=== PATIENT | male | born 1985 | race Caucasian/White ===

== ENCOUNTER 2020-02-08 07:26 | Outpatient (REF) | payer OTHER, SELFPAY | END 2020-02-08 07:27 | disposition home or self-care (01) | LOC: HO.LAB 07:26 | PROVIDERS: PCP Nurse Practitioner Family; Referring Provider Internal Medicine; Visit Provider Nurse Practitioner Gerontology | DX: Z20.828 Contact with and (suspected) exposure to other viral communicable diseases (principal); E10.22 Type 1 diabetes mellitus with diabetic chronic kidney disease; I12.9 Hypertensive chronic kidney disease with stage 1 through stage 4 chronic kidney disease, or unspecified chronic kidney disease; N18.4 Chronic kidney disease, stage 4 (severe); E10.65 Type 1 diabetes mellitus with hyperglycemia; E78.5 Hyperlipidemia, unspecified | CPT/HCPCS: 99212; C9803; U0003 ==

== ENCOUNTER → 2020-03-14 10:39 | Outpatient (BNVA) | payer OTHER, SELFPAY | PROVIDERS: PCP Physician Assistant; Visit Provider Nurse Practitioner Gerontology ==

== ENCOUNTER 2020-04-04 07:43 | Outpatient (REF) | payer OTHER, SELFPAY ==
[2020-04-04 09:06] LABS: Glucose Urine UA 500 MG/DL (NEG); Leukocyte Esterase Urine NEG (NEG); Nitrite Urine NEG (NEG); Specific Gravity - Urine 1.025 (1.005-1.025); Urine Blood 1+ (NEG); Urine Ketones NEG (NEG); Urine Protein 2+ MG/DL (NEG-TRACE)
[2020-04-04 09:09] LABS: Appearance Urine HAZY; Color Urine YELLOW
[2020-04-04 09:28] LABS: Anion Gap 14 (12-20); Blood Urea Nitrogen 43 mg/dL (9-16); Calcium 8.4 mg/dL (8.4-10.2); Carbon Dioxide 24 mmol/L (22-29); Chloride 106 mmol/L (96-108); Estimated Glomerular Filt Rate 26; Potassium 4.4 mmol/L (3.3-5.1); Sodium 140 mmol/L (135-145); Uric Acid 7.2 mg/dL (3.4-7.0)
[2020-04-04 09:34] LABS: Mucus Urine TRACE /LPF; Squamous Epithelial Cell Urine TRACE /LPF; WBC Urine 0 /HPF (0-4)
[2020-04-04 09:45] LABS: Estimated Average Glucose 169 mg/dL; Hemoglobin A1c % 7.5 %
[2020-04-04 10:12] LABS: Creatinine Urine 73.66 mg/dL
[2020-04-04 11:03] LABS: Renal w Reflex Lab Use Only Order verified
[2020-04-04 11:14] LABS: Phosphorus 3.3 mg/dL (2.7-4.5)
== END 2020-04-04 07:44 | disposition home or self-care (01) ==
LOC: HO.LAB 07:43
PROVIDERS: Absent Provider Nurse Practitioner Gerontology; PCP Nurse Practitioner Family; Visit Provider Internal Medicine Nephrology
DX: E10.22 Type 1 diabetes mellitus with diabetic chronic kidney disease (principal); I12.9 Hypertensive chronic kidney disease with stage 1 through stage 4 chronic kidney disease, or unspecified chronic kidney disease; N18.4 Chronic kidney disease, stage 4 (severe); E66.9 Obesity, unspecified; Z96.41 Presence of insulin pump (external) (internal); Z79.4 Long term (current) use of insulin; Z71.3 Dietary counseling and surveillance
CPT/HCPCS: 36415; 80051; 81001; 81003; 82043; 82310; 82565; 83036; 84100; 84520; 84550

== ENCOUNTER → 2020-04-21 10:21 | Outpatient (BNVA) | payer OTHER, SELFPAY | PROVIDERS: PCP Nurse Practitioner Family; Visit Provider Nurse Practitioner Gerontology ==

== ENCOUNTER → 2020-04-25 08:50 | Outpatient (BNVA) | payer OTHER, SELFPAY | PROVIDERS: PCP Nurse Practitioner Family; Visit Provider Nurse Practitioner Gerontology | DX: E10.65 Type 1 diabetes mellitus with hyperglycemia (principal); E10.22 Type 1 diabetes mellitus with diabetic chronic kidney disease; I12.9 Hypertensive chronic kidney disease with stage 1 through stage 4 chronic kidney disease, or unspecified chronic kidney disease; N18.4 Chronic kidney disease, stage 4 (severe); E78.5 Hyperlipidemia, unspecified | CPT/HCPCS: 82947; 99212 ==

== ENCOUNTER → 2020-05-09 13:20 | Outpatient (BNVA) | payer OTHER, SELFPAY | PROVIDERS: PCP Nurse Practitioner Family; Visit Provider Dietitian, Registered ==

== ENCOUNTER → 2020-07-25 07:54 | Outpatient (BNVA) | payer OTHER, SELFPAY | PROVIDERS: PCP Nurse Practitioner Family; Visit Provider Nurse Practitioner Gerontology | DX: E10.22 Type 1 diabetes mellitus with diabetic chronic kidney disease (principal); I12.9 Hypertensive chronic kidney disease with stage 1 through stage 4 chronic kidney disease, or unspecified chronic kidney disease; N18.4 Chronic kidney disease, stage 4 (severe); E10.65 Type 1 diabetes mellitus with hyperglycemia; E78.5 Hyperlipidemia, unspecified | CPT/HCPCS: 82947; 99212 ==

== ENCOUNTER → 2020-11-21 14:17 | Outpatient (BNVA) | payer OTHER, SELFPAY | PROVIDERS: PCP Nurse Practitioner Family; Visit Provider Nurse Practitioner Gerontology | DX: E10.65 Type 1 diabetes mellitus with hyperglycemia (principal); E10.22 Type 1 diabetes mellitus with diabetic chronic kidney disease; I12.9 Hypertensive chronic kidney disease with stage 1 through stage 4 chronic kidney disease, or unspecified chronic kidney disease; N18.4 Chronic kidney disease, stage 4 (severe); E78.5 Hyperlipidemia, unspecified | CPT/HCPCS: 82947; 83036; 99212 ==

== ENCOUNTER → 2021-01-22 07:52 | Outpatient (BNVA) | payer OTHER, SELFPAY | PROVIDERS: PCP Physician Assistant; Visit Provider Registered Nurse Diabetes Educator | DX: E10.22 Type 1 diabetes mellitus with diabetic chronic kidney disease (principal); N18.4 Chronic kidney disease, stage 4 (severe) | CPT/HCPCS: 99211 ==

== ENCOUNTER 2021-02-19 07:44 | Outpatient (REF) | payer OTHER, SELFPAY ==
[2021-02-19 11:52] LABS: Microalbum/Creatinine Ratio Ur 1051.7 ug/mg cr
[2021-02-19 11:57] LABS: Alanine Aminotransferase 31 U/L (0-40); Albumin Level 4.3 g/dL (3.5-5.0); Alkaline Phosphatase 107 U/L (39-117); Anion Gap 12 (12-20); Aspartate Amino Transferase 27 U/L (5-37); Bilirubin Total 0.4 mg/dL (0.0-1.0); Blood Urea Nitrogen 51 mg/dL (9-16); Calcium 9.1 mg/dL (8.4-10.2); Carbon Dioxide 23 mmol/L (22-29); Chloride 109 mmol/L (96-108); Cholesterol 163 mg/dL; Estimated Glomerular Filt Rate 20; Glucose Fasting 143 mg/dL (60-99); HDL Cholesterol 47 mg/dL; LDL Cholesterol Calculated 94 mg/dl; Potassium 6.1 mmol/L (3.3-5.1); Sodium 138 mmol/L (135-145); Total Protein 7.6 g/dL (6.5-8.0); Triglycerides 112 mg/dL
[2021-02-19 12:00] LABS: TSH reflex Free T4 2.45 uIU/mL (0.32-4.0)
== END 2021-02-19 07:45 | disposition home or self-care (01) ==
LOC: HO.LAB 07:44
PROVIDERS: Absent Provider Nurse Practitioner Gerontology; PCP Physician Assistant; Referring Provider Physician Assistant; Visit Provider Registered Nurse Diabetes Educator
DX: E10.22 Type 1 diabetes mellitus with diabetic chronic kidney disease (principal); N18.4 Chronic kidney disease, stage 4 (severe); E78.5 Hyperlipidemia, unspecified; Z79.4 Long term (current) use of insulin
CPT/HCPCS: 36415; 80053; 80061; 82043; 84443; 99211

== ENCOUNTER 2021-02-26 08:38 | Outpatient (REF) | payer OTHER, SELFPAY ==
[2021-02-26 10:55] LABS: Anion Gap 10 (12-20); Blood Urea Nitrogen 36 mg/dL (9-16); Calcium 8.8 mg/dL (8.4-10.2); Carbon Dioxide 26 mmol/L (22-29); Chloride 107 mmol/L (96-108); Estimated Glomerular Filt Rate 23; Glucose Fasting 252 mg/dL (60-99); Potassium 4.9 mmol/L (3.3-5.1); Sodium 138 mmol/L (135-145)
[2021-02-26 10:56] LABS: Troponin-I High Sensitivity < 3.5 ng/L (<3.5-35.0)
== END 2021-02-26 08:39 | disposition home or self-care (01) ==
LOC: HO.LAB 08:38
PROVIDERS: PCP Physician Assistant; Visit Provider Registered Nurse Diabetes Educator
DX: E10.65 Type 1 diabetes mellitus with hyperglycemia (principal); E10.22 Type 1 diabetes mellitus with diabetic chronic kidney disease; I12.9 Hypertensive chronic kidney disease with stage 1 through stage 4 chronic kidney disease, or unspecified chronic kidney disease; N18.4 Chronic kidney disease, stage 4 (severe); E87.5 Hyperkalemia; Z96.41 Presence of insulin pump (external) (internal); Z88.6 Allergy status to analgesic agent; Z88.8 Allergy status to other drugs, medicaments and biological substances; Z79.4 Long term (current) use of insulin
CPT/HCPCS: 36415; 80048; 84484; 99211

== ENCOUNTER → 2021-04-06 13:31 | Outpatient (BNVA) | payer OTHER, SELFPAY | PROVIDERS: PCP Physician Assistant; Visit Provider Nurse Practitioner Gerontology | DX: E10.21 Type 1 diabetes mellitus with diabetic nephropathy (principal); E10.22 Type 1 diabetes mellitus with diabetic chronic kidney disease; I12.9 Hypertensive chronic kidney disease with stage 1 through stage 4 chronic kidney disease, or unspecified chronic kidney disease; N18.4 Chronic kidney disease, stage 4 (severe); E78.5 Hyperlipidemia, unspecified; E04.9 Nontoxic goiter, unspecified; Z79.4 Long term (current) use of insulin; Z96.41 Presence of insulin pump (external) (internal) | CPT/HCPCS: 82947; 99212 ==

== ENCOUNTER 2021-10-16 14:40 | Outpatient (REF) | payer OTHER, SELFPAY ==
[2021-10-16 15:40] LABS: Anion Gap 17 (12-20); Blood Urea Nitrogen 45 mg/dL (9-16); Calcium 8.2 mg/dL (8.4-10.2); Carbon Dioxide 19 mmol/L (22-29); Chloride 107 mmol/L (96-108); Cholesterol 148 mg/dL; Estimated Glomerular Filt Rate 17; Glucose Random 173 mg/dL (60-115); HDL Cholesterol 43 mg/dL; LDL Cholesterol Calculated 77 mg/dl; Potassium 5.5 mmol/L (3.3-5.1); Sodium 137 mmol/L (135-145); Triglycerides 141 mg/dL
== END 2021-10-16 14:41 | disposition home or self-care (01) ==
LOC: HO.LAB 14:40
PROVIDERS: PCP Physician Assistant; Visit Provider Physician Assistant
DX: E87.5 Hyperkalemia (principal); E10.21 Type 1 diabetes mellitus with diabetic nephropathy
CPT/HCPCS: 36415; 80048; 80061

== ENCOUNTER 2021-12-14 13:20 | Outpatient (REF) | payer OTHER, SELFPAY ==
[2021-12-14 14:36] LABS: Anion Gap 16 (12-20); Blood Urea Nitrogen 52 mg/dL (9-16); Carbon Dioxide 20 mmol/L (22-29); Chloride 108 mmol/L (96-108); Estimated Glomerular Filt Rate 17; Glucose Random 108 mg/dL (60-115); Potassium 5.1 mmol/L (3.3-5.1); Sodium 139 mmol/L (135-145)
[2021-12-14 15:17] LABS: Creatinine Urine 107.92 mg/dL
[2021-12-14 15:31] LABS: Microalbum/Creatinine Ratio Ur 614.3 ug/mg cr
== END 2021-12-14 13:21 | disposition home or self-care (01) ==
LOC: HO.LAB 13:20
PROVIDERS: Absent Provider Internal Medicine Endocrinology, Diabetes & Metabolism; PCP Physician Assistant; Visit Provider Physician Assistant
DX: N18.4 Chronic kidney disease, stage 4 (severe) (principal); E10.22 Type 1 diabetes mellitus with diabetic chronic kidney disease; E87.5 Hyperkalemia
CPT/HCPCS: 36415; 80048; 82043

== ENCOUNTER → 2022-02-07 08:22 | Outpatient (BNVA) | payer OTHER, SELFPAY | PROVIDERS: PCP Physician Assistant; Visit Provider Internal Medicine Endocrinology, Diabetes & Metabolism | DX: E10.65 Type 1 diabetes mellitus with hyperglycemia (principal); E10.22 Type 1 diabetes mellitus with diabetic chronic kidney disease; E10.21 Type 1 diabetes mellitus with diabetic nephropathy; I12.9 Hypertensive chronic kidney disease with stage 1 through stage 4 chronic kidney disease, or unspecified chronic kidney disease; N18.4 Chronic kidney disease, stage 4 (severe); R80.9 Proteinuria, unspecified; E87.5 Hyperkalemia; E78.5 Hyperlipidemia, unspecified; Z79.4 Long term (current) use of insulin; Z96.41 Presence of insulin pump (external) (internal) | CPT/HCPCS: 82947; 83036; 99212 ==

== ENCOUNTER → 2022-04-01 12:56 | Outpatient (BNVA) | payer OTHER, SELFPAY | PROVIDERS: PCP Physician Assistant; Visit Provider Dietitian, Registered | DX: E10.22 Type 1 diabetes mellitus with diabetic chronic kidney disease (principal); N18.4 Chronic kidney disease, stage 4 (severe); Z71.3 Dietary counseling and surveillance | CPT/HCPCS: 97803 ==

== ENCOUNTER 2022-12-04 13:48 | Outpatient (AMB) | payer OTHER, SELFPAY ==
--- NOTE | 2022-12-04 13:49 | MHC.OFFVIS ---
Intake Vital Signs 12/04/22 13:50 Height 5 ft 5 in Weight 200 lb 13.458 oz BMI 33.4 BP 154/86 H Blood Pressure Location Lt brachial Position Sitting Pulse 79 Pulse Source Pulse Oximeter Intake Visit Reasons: DM Intake Note: Patient present today to follow up on Type 1 Diabetes Mellitus. Patient receives DME supplies through: [facility] Last Diabetic Eye exam: 2021 Last Podiatry Visit: None Random Glucose: 197 mg/dl HgA1C: 7.3% It Help Desk Analyst Required: No Accompanied by: Self / Same As Patient Allergies aspirin [ASA] Allergy (Unknown, Verified 12/04/22 14:03) ANAPHYLAXIS benazepril Allergy (Unknown, Verified 12/04/22 14:03) hyperkalemia HPI HPI Comments History of Present Illness Details Patient is 36 yo male with DM type 1 diagnosed at the age of 13 who presents for continued management of diabetes. . Past medical history: DM1, HTN, HLD Micro and macrovascular complications: + nephropathy, + retinopathy Symptoms reported: no numbness, tingling, cramping in lower extremities Hypoglycemia: Exercise: at work is active Eye exam: , background retinopathy last exam CGM: range 46-400, average 181 over the past 2 weeks. CGM active 13.6 days. 14% range with 85% hyperglycemia and 2% hypoglycemia. pattern shows post -lunch and post- dinner hyperglycemia with overnight lows tandem T slim control IQ Pump details: Total daily dose 69.08 Basal is 46%, food bolus 44%, correction bolus 4%, control IQ 92% of the time. Cartridge and tubing change every 35days. Rare hypoglycemia Evangelical profile: basal rate 12am 1.3 u/hr, 3am 0.9 u/hr, 7am 0.9 u/hr, 4pm 1.20 u/hr, ICR 1:7, ISF 12am 1:40, 7am 1:48, 4pm 1:35, Work profile: basal rate 12am 0.9 u/hr, 3am 0.9 u/hr, 7am 0.89 u/hr, 4pm 1.20 u/hr, ICR 1:7, ISF 12am 1:40, 7am 1:40, 2pm 1:44, 4pm 1:35, insulin action time is 4 hrs, BG target is 120mg/dl. eye exam over 1 yr ago ou-background diabetic retinopathy needs to make appt Laboratory Tests 02/19/21 02/19/21 02/19/21 09:39 10:23 10:30 Creatinine Estimated GFR Hgb A1c (Clinic) 7.0 H Triglycerides 112 Cholesterol 163 LDL Cholesterol, C alc 94 HDL Cholesterol 47 TSH 2.45 Microalb/Creat Rat io 1051.7 02/26/21 10:10 Creatinine 3.05 H Estimated GFR 23 Hgb A1c (Clinic) Triglycerides Cholesterol LDL Cholesterol, C alc HDL Cholesterol TSH Microalb/Creat Rat io PFSH Medical History Chronic kidney disease, stage 4 (severe) Diabetes mellitus type 1, uncontrolled Essential hypertension Hyperlipidemia LDL goal <100 Proteinuria Tinea pedis 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 Absence of acromegalic features. Neck exam reveals nl size thyroid about 15 gms. No thyroid nodules palpable. No carotid bruits present. Lungs CTA. Heart S1 S2, Reg R/R. No M/R/ G. Skin exam reveals absence of vitiligo or acanthosis nigricans. Abdominal exam reveals Soft NT/ND with NA BS. No organomegaly present. Extrem Other: Visual exam of foot performed. No ulcerations or open lesions. No onchomycosis, no callouses.Pulses 2 + distally. Sensation intact to monofilament exam. 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 Plan is to tighten the insulin : Carbohydrate to 1:6 before lunch and dinner. Will lower the basal rate at 00:00 to 1.1 units per hour. Patient was given follow-up appointments with front office clerk and cage loader to review carbohydrate counting. In light of the CKD stage 4 I think the hemoglobin A1c is not reflective glucose control Orders: Orders AMB Hemoglobin A1c Today E10.21 - Type 1 diabetes mellitus with diabetic nephropathy Coding Level of Care Code Est Pt Level 4 (97097) Diagnoses Type 1 diabetes mellitus with stage 4 chronic kidney disease E10.22; N18.4 Chronic kidney disease stage: stage 4 (severe)
[2022-12-04 13:50] VITALS: BP 154/86; PULSE 79; BMI 33.4
== END 2022-12-04 14:26 | disposition home or self-care (01) ==
PROVIDERS: PCP Physician Assistant; Visit Provider Internal Medicine Endocrinology, Diabetes & Metabolism
DX: E10.22 Type 1 diabetes mellitus with diabetic chronic kidney disease (principal); N18.4 Chronic kidney disease, stage 4 (severe); E10.21 Type 1 diabetes mellitus with diabetic nephropathy
CPT/HCPCS: 99214

== ENCOUNTER → 2022-12-04 13:48 | Outpatient (BNVA) | payer OTHER, SELFPAY | PROVIDERS: PCP Physician Assistant; Visit Provider Internal Medicine Endocrinology, Diabetes & Metabolism | DX: E10.22 Type 1 diabetes mellitus with diabetic chronic kidney disease (principal); N18.4 Chronic kidney disease, stage 4 (severe) | CPT/HCPCS: 82947; 83036; 99212 ==

== ENCOUNTER 2023-03-07 09:54 | Outpatient (AMB) | payer SELFPAY ==
[2023-03-07 10:25] VITALS: BP 156/90; PULSE 62; O2SAT 99; BMI 34.3
--- NOTE | 2023-03-07 10:25 | HO.NEPHOV_ITS ---
HPI HPI Comments History of Present Illness Details I had the privilege of seeing Holiness in follow-up of his chronic kidney disease stage 4 due to diabetic nephropathy. His blood sugar controls are fair. He has type 1 diabetes but denies retinopathy or neuropathy. He does not have any edema. His blood pressure has been at goal. He denies uremic symptoms. He does not have any chest pain, shortness of breath, proximal nocturnal dyspnea, orthopnea, nausea, vomiting, diarrhea. He claims to be compliant with his medications. He remains employed and is active. 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 His last serum creatinine in [facility] was 3.2. 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 Cognitive needs: No Hearing needs: No Vision needs: No Vital Signs 03/07/23 10:25 Height 5 ft 5 in Weight 206 lb 2 oz BMI 34.3 BP 156/90 H Blood Pressure Location Rt brachial Position Sitting Pulse 62 Pulse Source Pulse Oximeter Pulse Oximetry (%) 99 Oxygen Delivery Method Room Air Physical Exam Vital Signs: Last Vital Signs Pulse 62 03/07/23 10:25 BP 156/90 H 03/07/23 10:25 Pulse Ox 99 03/07/23 10:25 Oxygen Delivery Method Room Air 03/07/23 10:25 BMI result Body Mass Index 34.3 Const General: comfortable and no acute distress Orientation/consciousness: patient oriented x3 HEENT Head: Yes normocephalic Mouth: Normal oral and palatal mucosa present Eyes EOM: EOMs intact bilaterally Neck Neck: Yes supple Resp Auscultation: clear to auscultation bilaterally Cardio Jugular venous distension: no JVD Rate: regular rate GI Palpation (GI): Soft to palpation Auscultation: normal bowel sounds General: Yes no CVA tenderness Back/Spine/Pelvis Back: no CVA tenderness Skin General skin exam: no rashes or lesions noted Neuro General: patient oriented x3 and moves all extremities Extrem General: Yes no pedal edema Assessment & Plan Assessment & Plan (1) Type 1 diabetes mellitus with nephropathy: Code(s): E10.21 - Type 1 diabetes mellitus with diabetic nephropathy (2) Chronic kidney disease, stage 4 (severe): Code(s): N18.4 - Chronic kidney disease, stage 4 (severe) Plan Holiness has advanced chronic kidney disease. His renal functions had been stable. His blood pressure is at goal. He is tolerating low-dose of PEPE- inhibitor. He has no uremic symptoms. He has not had any blood work done recently. He needs to follow-up with his letter stamping machine operator closely. If his GFR continues to decline, I plan to refer him for a kidney and pancreas transplant. He should avoid nonsteroidal anti-inflammatories and maintain good hydration. I did not make any medication changes today but rather discussed about his CKD and its management strategies. Follow-up blood work ordered and follow-up appointment given. Answered all questions. Orders: Orders Blood Urea Nitrogen 03/07/23 E10.21 - Type 1 diabetes mellitus with diabetic nephropathy, N18.4 - Chronic kidney disease, stage 4 (severe) Electrolytes 03/07/23 E10.21 - Type 1 diabetes mellitus with diabetic nephropathy, N18.4 - Chronic kidney disease, stage 4 (severe) Phosphorus 03/07/23 E10.21 - Type 1 diabetes mellitus with diabetic nephropathy, N18.4 - Chronic kidney disease, stage 4 (severe) Vitamin D 25-OH Total 03/07/23 E10.21 - Type 1 diabetes mellitus with diabetic nephropathy, N18.4 - Chronic kidney disease, stage 4 (severe) Blood Urea Nitrogen 3 Months E10.21 - Type 1 diabetes mellitus with diabetic nephropathy Creatinine 03/07/23 E10.21 - Type 1 diabetes mellitus with diabetic nephropathy, N18.4 - Chronic kidney disease, stage 4 (severe) Hemoglobin A1c 03/07/23 E10.21 - Type 1 diabetes mellitus with diabetic nephropathy, N18.4 - Chronic kidney disease, stage 4 (severe) Complete Blood Count Auto Diff 03/07/23 E10.21 - Type 1 diabetes mellitus with diabetic nephropathy, N18.4 - Chronic kidney disease, stage 4 (severe) Parathyroid Hormone Intact 03/07/23 E10.21 - Type 1 diabetes mellitus with diabetic nephropathy, N18.4 - Chronic kidney disease, stage 4 (severe) Protein Creatinine Ratio, Ur 03/07/23 E10. - Type 1 diabetes mellitus with diabetic nephropathy, N18.4 - Chronic kidney disease, stage 4 (severe) Creatinine 3 Months E10. - Type 1 diabetes mellitus with diabetic nephropathy Electrolytes 3 Months E10. - Type 1 diabetes mellitus with diabetic nephropathy Coding Level of Care Code Est Pt Level 3 (86619) Diagnoses Type 1 diabetes mellitus with nephropathy E10. Chronic kidney disease, stage 4 (severe) N18.4 Results Reviewed Nephrology Results: No Data to Display
== END 2023-03-07 10:51 | disposition home or self-care (01) ==
PROVIDERS: Visit Provider Internal Medicine Nephrology
DX: E10.21 Type 1 diabetes mellitus with diabetic nephropathy (principal); N18.4 Chronic kidney disease, stage 4 (severe)
CPT/HCPCS: 99213

== ENCOUNTER → 2023-03-07 09:54 | Outpatient (BNVA) | payer OTHER, SELFPAY | PROVIDERS: Visit Provider Internal Medicine Nephrology | DX: E10.22 Type 1 diabetes mellitus with diabetic chronic kidney disease (principal); N18.4 Chronic kidney disease, stage 4 (severe); E10.21 Type 1 diabetes mellitus with diabetic nephropathy | CPT/HCPCS: 99212 ==

== ENCOUNTER 2023-05-12 07:04 | Outpatient (AMB) | payer OTHER, SELFPAY ==
--- NOTE | 2023-05-12 07:42 | MHC.AMDMED ---
Intake Intake Visit Reasons: DM Inspector Of Dredging Required: No Accompanied by: Self / Same As Patient Allergies aspirin [ASA] Allergy (Unknown, Verified 03/07/23 10:29) ANAPHYLAXIS benazepril Allergy (Unknown, Verified 03/07/23 10:29) hyperkalemia HPI Comprehensive Diabetes Asmnt Most Recent Diabetes Results: Hemoglobin A1c 10.7 % 04/14/18 Microalb/Creat Ratio 614.3 ug/mg cr 12/14/21 Cholesterol 148 mg/dL 10/16/21 HDL Cholesterol 43 mg/dL 10/16/21 Triglycerides 141 mg/dL 10/16/21 Creatinine 4.10 mg/dL (0.5-1.4) H* 12/14/21 Blood Urea Nitrogen 52 mg/dL (9-16) H 12/14/21 Sodium 139 mmol/L (135-145) 12/14/21 Potassium 5.1 mmol/L (3.3-5.1) 12/14/21 Chloride 108 mmol/L (96-108) 12/14/21 Carbon Dioxide 20 mmol/L (22-29) L 12/14/21 Calcium 9.0 mg/dL (8.4-10.2) 12/14/21 AST 27 U/L (5-37) 02/19/21 ALT 31 U/L (0-40) 02/19/21 Total Protein 7.6 g/dL (6.5-8.0) 02/19/21 Albumin 4.3 g/dL (3.5-5.0) 02/19/21 [facility] Medical History Chronic kidney disease, stage 4 (severe) Diabetes mellitus type 1, uncontrolled Essential hypertension Hyperlipidemia LDL goal <100 Proteinuria Tinea pedis 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 High Alert: 300 mg/dl ??? Low Alert: 70 mg/dl Patient above target 43% Patient at target 57% Patient below target 0% Average glucose 177 mg/dL for the past 14 days Patient's average glucose is above target, this could be due to overnight glucose running above target on some days. Reviewed with patient the importance bolusing for carbs 15 minutes before meals, recommended we adjust overnight basal to compensate for high glucose overnight. Also recommended to patient he use activity level at work if he feels his glucose levels are dropping to low Reviewed with patient importance of changing insulin delivery set/Pod every 72 hours, with site rotation. Patient given the opportunity to ask questions about pump function See changes to pump settings below: ?Basal rate(s) (units/hour) : 12 AM? to 3 AM? 1.1 units / hr 3 AM? to 7 AM? 0.9 units / hr New 3 AM? to 7 AM? 1.1 units / hr 7 AM? to 4 PM? 0.9 units / hr 4 PM to 12 AM? 1.2 units / hr Bolus setting Insulin Carbohydrate Ratio (s) 12 AM? to 12 AM? 1:8 Correction Factor / Sensitivity Factor 12 AM? to 7 AM? 1:40 7 AM? to 4 PM? 1:48 4 PM to 12 AM 1:35 Active Insulin Time: Control IQ 5 hours Target(s): 12 AM? to 12 AM? 120 mg/dL New Sleep Schedule turned on for weekdays and weekends Coding Level of Care Code Est Pt Level 1 (83447) Diagnoses Type 1 diabetes mellitus with nephropathy E10.21
== END 2023-05-12 07:45 | disposition home or self-care (01) ==
PROVIDERS: Visit Provider Registered Nurse Diabetes Educator
DX: E10.21 Type 1 diabetes mellitus with diabetic nephropathy (principal)

== ENCOUNTER → 2023-05-12 07:04 | Outpatient (BNVA) | payer OTHER, SELFPAY | PROVIDERS: Visit Provider Registered Nurse Diabetes Educator | DX: E10.21 Type 1 diabetes mellitus with diabetic nephropathy (principal) | CPT/HCPCS: 99211 ==

== ENCOUNTER → 2023-06-06 16:06 | Outpatient (BNVA) | payer OTHER, SELFPAY | PROVIDERS: Visit Provider Internal Medicine Nephrology | DX: E10.22 Type 1 diabetes mellitus with diabetic chronic kidney disease (principal); I12.9 Hypertensive chronic kidney disease with stage 1 through stage 4 chronic kidney disease, or unspecified chronic kidney disease; N18.4 Chronic kidney disease, stage 4 (severe); E10.21 Type 1 diabetes mellitus with diabetic nephropathy; E87.5 Hyperkalemia | CPT/HCPCS: 99212 ==

== ENCOUNTER 2023-06-16 15:45 | Outpatient (AMB) | payer OTHER, SELFPAY ==
--- NOTE | 2023-06-16 16:30 | MHC.AMDMED ---
Intake Intake Visit Reasons: DM-confirmed Ammonium Nitrate Neutralizer Required: No Accompanied by: Self / Same As Patient Allergies aspirin [ASA] Allergy (Unknown, Verified 06/06/23 16:14) ANAPHYLAXIS benazepril Allergy (Unknown, Verified 06/06/23 16:14) hyperkalemia HPI Comprehensive Diabetes Asmnt Most Recent Diabetes Results: Hemoglobin A1c 10.7 % 04/14/18 Microalb/Creat Ratio 614.3 ug/mg cr 12/14/21 Cholesterol 148 mg/dL 10/16/21 HDL Cholesterol 43 mg/dL 10/16/21 Triglycerides 141 mg/dL 10/16/21 Creatinine 4.10 mg/dL (0.5-1.4) H* 12/14/21 Blood Urea Nitrogen 52 mg/dL (9-16) H 12/14/21 Sodium 139 mmol/L (135-145) 12/14/21 Potassium 5.1 mmol/L (3.3-5.1) 12/14/21 Chloride 108 mmol/L (96-108) 12/14/21 Carbon Dioxide 20 mmol/L (22-29) L 12/14/21 Calcium 9.0 mg/dL (8.4-10.2) 12/14/21 AST 27 U/L (5-37) 02/19/21 ALT 31 U/L (0-40) 02/19/21 Total Protein 7.6 g/dL (6.5-8.0) 02/19/21 Albumin 4.3 g/dL (3.5-5.0) 02/19/21 [facility] Medical History Chronic kidney disease, stage 4 (severe) Diabetes mellitus type 1, uncontrolled Essential hypertension Hyperlipidemia LDL goal <100 Proteinuria Tinea pedis 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 High Alert: 300 mg/dl ??? Low Alert: 70 mg/dl Patient above target 49% Patient at target 51% Patient below target 0% Average glucose 196 mg/dL for the past 14 days Patient has been running low on insulin pump supplies so he has been extending the use of his insulin delivery sets, this could be contributing to his hyperglycemia. In addition we discussed off pump diabetes backup plan Bolus calc downloaded and setup on Pt's phone No changes to patient's insulin pump settings at today's visit ?Basal rate(s) (units/hour) : 12 AM? to 3 AM? 1.1 units / hr 3 AM? to 7 AM? 1.1 units / hr 7 AM? to 4 PM? 0.9 units / hr 4 PM to 12 AM? 1.2 units / hr Bolus setting Insulin Carbohydrate Ratio (s) 12 AM? to 12 AM? 1:8 Correction Factor / Sensitivity Factor 12 AM? to 7 AM? 1:40 7 AM? to 4 PM? 1:48 4 PM to 12 AM 1:35 Active Insulin Time: Control IQ 5 hours Target(s): 12 AM? to 12 AM? 120 mg/dL Coding Level of Care Code Est Pt Level 1 (78812) Diagnoses Type 1 diabetes mellitus with nephropathy E10.21
== END 2023-06-16 16:39 | disposition home or self-care (01) ==
PROVIDERS: Visit Provider Registered Nurse Diabetes Educator
DX: E10.21 Type 1 diabetes mellitus with diabetic nephropathy (principal)

== ENCOUNTER → 2023-06-16 15:53 | Outpatient (BNVA) | payer OTHER, SELFPAY | PROVIDERS: Visit Provider Registered Nurse Diabetes Educator | DX: E10.21 Type 1 diabetes mellitus with diabetic nephropathy (principal); Z79.4 Long term (current) use of insulin | CPT/HCPCS: 99211 ==

== ENCOUNTER 2023-06-26 14:29 | Outpatient (AMB) | payer OTHER, SELFPAY ==
[2023-06-26 14:42] VITALS: BP 134/84; PULSE 62; O2SAT 98; BMI 33.7
--- NOTE | 2023-06-26 14:42 | MHC.PC.OV ---
Vital Signs 06/26/23 14:42 Height 5 ft 5 in Weight 202 lb 8 oz BMI 33.7 BP 134/84 Blood Pressure Location Lt brachial Position Sitting Pulse 62 Pulse Source Pulse Oximeter Pulse Oximetry (%) 98 Oxygen Delivery Method Room Air Intake Visit Reasons: annual exam Allergies aspirin [ASA] Allergy (Unknown, Verified 06/26/23 15:17) ANAPHYLAXIS benazepril Allergy (Unknown, Verified 06/26/23 15:17) hyperkalemia Medication List - Last Reconciled 06/26/23 by Ashok Hurtado PA-C infusion set for insulin pump As directed insulin aspart U-100 (Novolog U-100 Insulin aspart) Use up to 125 units via insulin pump subcutaneously daily; insulin glargine (Lantus Solostar U-100 Insulin) 25 units (0.25 mL) subcut DAILY [insulin pump supplies As directed] insulin syringe-needle U-100 (BD Veo Insulin Syringe Ultra-Fine) As directed lisinopril 2.5 mg PO DAILY 90 days loratadine 10 mg PO DAILY metoprolol succinate ER 100 mg PO DAILY nifedipine ER 60 mg PO DAILY pen needle, diabetic (BD Ultra-Fine Kamala Pen Needle) As directed one daily rosuvastatin 20 mg PO DAILY 90 days sodium polystyrene sulf-sorbtl 15-20 gram/60 mL 60 mL PO .three times weekly urine glucose-ketones test (Keto-Diastix strips) As directed Tobacco use date assessed: 06/21/21 [facility] [employer] [facility] annual exam HPI Details Patient is a 38-year-old male here today for a routine annual physical. Patient has a past medical history significant for type 1 diabetes, CKD stage for, hypertension, hyperlipidemia. Type 1 diabetes: Patient is followed by endocrinology and continues on continues glucose monitoring and insulin pump.? Today's A1c is 6.7..? He does report blood sugars have been fairly stable. CKD stage 4:? Patient is followed by Nephrology, blood pressure today in office acceptable. 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 Vaccines : Up-to-date with pneumonia, COVID, tetanus. 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 1. Little interest or pleasure in doing things: not at all 2. Feeling down, depressed, or hopeless: not at all 3. Trouble falling or staying asleep, or sleeping too much: not at all 4. Feeling tired or having little energy: not at all 5. Poor appetite or overeating: not at all 6. Feeling bad about yourself - or that you are a failure or have let yourself or your family down: not at all 7. Trouble concentrating on things, such as reading the newspaper or watching television: not at all 8. Moving or speaking so slowly that other people could have noticed. Or the opposite - being so fidgety or restless that you have been moving around a lot more than usual: not at all 9. Thoughts that you would be better off or of hurting yourself in some way: not at all Total score: 0 Depression Screening Interpretation: Negative Depression Screening Done: Yes 03921 - PHQ-9 Billing: Yes Source: Developed by Drs. Nikolai Martinez, Alicia Aaron, Shane Potter and colleagues, with an educational han from [employer]. Thrive Questionnaire Date Thrive assessed: 06/21/21 CAMILO-7 AMB Questionnaire CAMILO-7 Date CAMILO - 7 assessed: 06/21/21 Feeling nervous, anxious, or on edge: 0 = Not at all Not being able to stop or control worryin = Not at all Worrying too much about different things: 0 = Not at all Trouble relaxin = Not at all Being so restless that it is hard to sit still: 0 = Not at all Becoming easily annoyed or irritable: 0 = Not at all Feeling afraid as if something awful might happen: 0 = Not at all Total CAMILO-7 score (0-4 normal; 5-9 mild; 10-14 moderate; 15-21 severe): 0 Source: Developed by Drs. Nikolai Martinez, Alicia Aaron, Shane Potter and colleagues, with an educational han from [employer]. CAMILO-7 Assessment Billing CAMILO-7 Assessment Tool: CAMILO-7 Assessment 78463 Review of Systems Const Denies body aches, Denies chills, Denies excessive sweating, Denies fatigue, Denies fever(s) and Denies headache(s) Eyes Denies blurry vision ENT Denies dysphagia, Denies vertigo, Denies dizziness, Denies headache(s), Denies hearing loss and Denies tinnitus Card Denies chest pain, Denies chest pain with activity, Denies syncope, Denies irregular heart rhythm and Denies dyspnea Resp Denies chest congestion, Denies cough, Denies hemoptysis, Denies dyspnea and Denies wheezing GI Denies abdominal pain, Denies melena, Denies hematochezia, Denies coffee ground emesis, Denies dysphagia, Denies diarrhea, Denies nausea and Denies vomiting Denies difficulty urinating, Denies dysuria, Denies urinary frequency, Denies urinary hesitancy and Denies urinary urgency Musc Denies arthralgias, Denies limited range of motion, Denies muscle cramps and Denies muscle weakness Skin/Breast Denies rash and Denies skin ulcer Neuro Denies Abnormal speech present, Denies confusion, Denies vertigo, Denies dizziness, Denies syncope, Denies headache(s), Denies memory loss and Denies seizure-like activity Psych Denies anxiety, Denies confusion, Denies depression, Denies memory loss, Denies panic attacks and Denies paranoia Endo Denies excessive sweating, Denies fatigue, Denies flushing, Denies polydipsia and Denies polyuria Aller/Immun Denies wheezing Physical exam (Primary Care) Vital Signs: Last Vital Signs Pulse 62 06/26/23 14:42 BP 134/84 06/26/23 14:42 Pulse Ox 98 06/26/23 14:42 Oxygen Delivery Method Room Air 06/26/23 14:42 BMI result Body Mass Index 33.7 Tobacco/Smoking Status: Tobacco use Status Tobacco use date assessed 06/21/21 06/26/23 14:45 Patient Tobacco Use Status Former Tobacco user 06/26/23 15:20 e-Cigarette/Vaping Use Never Used 06/26/23 15:20 Depression Screening Interpretation: Negative Thrive Assessment: Date of Thrive Assessment Date Thrive assessed 06/21/21 06/26/23 14:45 Const General: cooperative, comfortable, no acute distress, alert and awake; No confusion Orientation/consciousness: oriented to person, oriented to place, patient oriented x3 and No confusion HENMT Head: Yes normocephalic Ears: external ears normal and TM's normal bilaterally Face and sinus: No sinus tenderness Mouth: Normal oral and palatal mucosa present and tongue normal Teeth and gingiva: dentition normal and gingiva normal Throat: Yes posterior oropharynx normal, Yes tonsils normal and Yes uvula midline Eyes Conjunctivae: conjunctivae normal Sclerae: sclerae normal Pupils: Equal, round and reactive pupils present EOM: EOMs intact bilaterally Direct Ophthalmoscopy: No no photophobia Neck Neck: Yes no lymphadenopathy, No tender and Yes no JVD Thyroid: Thyroid normal Carotids: no bruits Chest Chest palpation & inspection: no tenderness Resp Effort & Inspection: normal respiratory effort, no audible wheezes, not labored and no stridor Auscultation: no crackles, no rales, no rhonchi and no wheezes Cardio Jugular venous distension: no JVD Rate: regular rate, not bradycardic and not tachycardic Rhythm: regular rhythm Bruits: no carotid bruits Peripheral pulses: Peripheral pulses 2+ throughout GI Inspection: Yes normal to inspection, No abdominal wall ecchymosis and No visible herniation Palpation (GI): Soft to palpation, nontender, no guarding, not rigid and No hepatosplenomegaly present Auscultation: normoactive bowel sounds General: Yes no CVA tenderness Back/Spine/Pelvis Back: no CVA tenderness and No back tenderness Cervical Spine: cervical ROM normal Thoracic/Lumbar Spine: thoracic and lumbar spine normal to inspection, straight leg raise negative bilaterally, No thoraco-lumbar ROM limited and No lumbar spinal tenderness Skin Lesions: no lesions Rashes: no rashes Wounds: no wounds Neuro General: oriented to person, oriented to place, patient oriented x3, CN's II-XI intact bilaterally and No confusion Cranial nerves: Yes Equal, round and reactive pupils present and Yes Normal accommodation reflex present Cognition (Neuro): normal cognition Speech: No Abnormal speech present Gait exam (Neuro): Normal gait present Motor exam (neuro): 5/5 motor strength present throughout Extrem Right upper extremity: full ROM; no cyanosis Left upper extremity: full ROM; no cyanosis Right lower extremity: no edema Left lower extremity: no edema Psych Appearance: grossly normal Mental Status: mental status grossly normal Affect: normal affect Attitude: cooperative Thought process: Normal thought process present Results AMB Hemoglobin A1c AMB Hemoglobin A1c 6.7 % Last Edit by LEELEE Acosta on 06/26/23 15:20 Results Reviewed Results Reviewed: Laboratory Last Values Hgb A1c (Clinic) 6.7 % (4.0-6.0) H 06/26/23 14:46 Assessment and Plan Assessment & Plan (1) Annual physical exam: Code(s): Z00.00 - Encounter for general adult medical examination without abnormal findings (2) Type 1 diabetes mellitus with nephropathy: Code(s): E10.21 - Type 1 diabetes mellitus with diabetic nephropathy Plan: Patient followed by endocrinology. Today's A1c is 6.7, he reports blood sugars have been stable without any episodes of hypoglycemia. . Continues on insulin therapy. Goal A1c to be below 7.0 (3) Hyperkalemia: Code(s): E87.5 - Hyperkalemia Plan: Patient continues to have chronic hyperkalemia likely secondary to renal disease. Followed by Nephrology. Now on polystyrene 60 mg 3 times a week. (4) Essential hypertension: Code(s): I10 - Essential (primary) hypertension Plan: Patient's blood pressure acceptable today in office. Will continue his current dose of antihypertensive medication with goal blood pressure to be below 140/90 (5) Hyperlipidemia LDL goal <100: Code(s): E78.5 - Hyperlipidemia, unspecified Plan: Patient continues on moderate dose statin. Goal LDL to be below 100. (6) Chronic kidney disease, stage 4 (severe): Code(s): N18.4 - Chronic kidney disease, stage 4 (severe) Plan: Again patient continues to follow nephrology. Continues to have ovwi-dl-sflewgaj hyperkalemia and has been started on maintenance polystyrene solution. Orders: Orders Lipid Panel 06/26/23 E78.5 - Hyperlipidemia, unspecified Microalbumin, Random (w Creat) 06/26/23 I10 - Essential (primary) hypertension AMB Hemoglobin A1c 06/26/23 E10.21 - Type 1 diabetes mellitus with diabetic nephropathy Comprehensive [place]. Panel Fast 06/26/23 E10.22 - Type 1 diabetes mellitus with diabetic chronic kidney disease, N18.4 - Chronic kidney disease, stage 4 (severe) Patient Instructions: Goal: Blood pressure to remain below 140/90, A1c to remain below 7.0 Barriers: Adherence to physical activity and healthy eating habits. Coding Level of Care Code Est Pt Prev Care 18-39y(16011) Diagnoses Annual physical exam Z00.00 Type 1 diabetes mellitus with nephropathy E10.21 Hyperkalemia E87.5 Essential hypertension I10 Hyperlipidemia LDL goal <100 E78.5 Chronic kidney disease, stage 4 (severe) N18.4 Additional Codes CAMILO-7 Assessment Billing - CAMILO-7 Assessment Tool: CAMILO-7 Assessment 22613 ([id number])
== END 2023-06-26 15:30 | disposition home or self-care (01) ==
PROVIDERS: PCP Physician Assistant; Visit Provider Physician Assistant
DX: Z00.00 Encounter for general adult medical examination without abnormal findings (principal); E10.22 Type 1 diabetes mellitus with diabetic chronic kidney disease; I12.9 Hypertensive chronic kidney disease with stage 1 through stage 4 chronic kidney disease, or unspecified chronic kidney disease; N18.4 Chronic kidney disease, stage 4 (severe)
CPT/HCPCS: 83036; 99395

== ENCOUNTER 2023-07-04 10:55 | Outpatient (REF) | payer OTHER, SELFPAY ==
[2023-07-04 11:09] LABS: MANUAL DIFF FLAG NO
[2023-07-04 11:51] LABS: Basophils Absolute Auto 0.1 X10*3/uL (0.0-0.2); Basophils Percent Auto 0.5 % (0-2); Eosinophils Absolute Auto 0.1 X10*3/uL (0.0-0.4); Eosinophils Percent Auto 0.9 % (0-4); Hematocrit 48.8 % (42.0-52.0); Hemoglobin 15.4 g/dl (14.0-18.0); Imm Gran Abs Auto 0.07 X10*3/uL (0.00-0.03); Imm Gran Pct Auto 0.7 % (0.0-0.4); Lymphocytes Absolute Auto 1.9 X10*3/uL (1.2-4.9); Lymphocytes Percent Auto 19.9 % (20-40); Mean Corpuscular HGB Conc 31.6 g/dl (31.0-36.0); Mean Corpuscular Hemoglobin 25.2 pg (27.0-33.0); Mean Corpuscular Volume 79.7 fL (80.0-98.0); Mean Platelet Volume 10.8 fL (9.4-12.4); Monocytes Absolute Auto 0.7 X10*3/uL (0.1-1.2); Monocytes Percent Auto 7.5 % (2-11); Neutrophils Absolute Auto 6.8 x10*3/uL (2.0-8.3); Neutrophils Percent Auto 70.5 % (45-73); Platelet Count 197 X10*3/uL (160-400); Red Blood Count 6.12 X10*6/uL (4.60-5.80); Red Cell Distribution Width 14.6 % (11.0-16.0); White Blood Count 9.6 X10*3/uL (4.8-10.8)
[2023-07-04 12:22] LABS: Estimated Average Glucose 163 mg/dL; Hemoglobin A1c % 7.3 % (<6.0)
[2023-07-04 12:38] LABS: Parathyroid Hormone Intact 343.2 pg/mL (8.7-77.1)
[2023-07-04 12:53] LABS: Blood Urea Nitrogen 46 mg/dL (9-16); Calcium 9.4 mg/dL (8.4-10.2); Cholesterol 185 mg/dL (<200); HDL Cholesterol 53 mg/dL (>40); LDL Cholesterol Calculated 115 mg/dL (<100); Triglycerides 87 mg/dL (<150); Vitamin D 25-OH Total 17.7 ng/mL (>30)
[2023-07-04 13:04] LABS: Alanine Aminotransferase 15 U/L (0-40); Albumin Level 4.1 g/dL (3.5-5.0); Alkaline Phosphatase 109 U/L (39-117); Anion Gap 13 (12-20); Aspartate Amino Transferase 15 U/L (5-37); Bilirubin Total 0.4 mg/dL (0.0-1.0); Blood Urea Nitrogen 46 mg/dL (9-16); Calcium 9.4 mg/dL (8.4-10.2); Carbon Dioxide 22 mmol/L (22-29); Chloride 109 mmol/L (96-108); Cholesterol 185 mg/dL (<200); Estimated Glomerular Filt Rate 19; Glucose Fasting 138 mg/dL (60-99); HDL Cholesterol 52 mg/dL (>40); LDL Cholesterol Calculated 115 mg/dL (<100); Phosphorus 2.9 mg/dL (2.7-4.5); Potassium 5.3 mmol/L (3.3-5.1); Sodium 139 mmol/L (135-145); Total Protein 7.9 g/dL (6.5-8.0); Triglycerides 91 mg/dL (<150)
[2023-07-04 13:31] LABS: Creatinine Urine 87.01 mg/dL; Creatinine Urine 87.36 mg/dL
[2023-07-04 13:43] LABS: Microalbum/Creatinine Ratio Ur 1429.7 ug/mg cr (<30); Protein/Creatinine Ratio, Ur 2.39 (<0.2); Total Protein Urine Random 208 mg/dL (<12)
== END 2023-07-04 10:56 | disposition home or self-care (01) ==
LOC: HO.LAB 10:55
PROVIDERS: Internal Medicine Endocrinology, Diabetes & Metabolism; Internal Medicine Nephrology; PCP Physician Assistant; Visit Provider Physician Assistant
DX: E10.22 Type 1 diabetes mellitus with diabetic chronic kidney disease (principal); N18.4 Chronic kidney disease, stage 4 (severe); E10.21 Type 1 diabetes mellitus with diabetic nephropathy; E78.5 Hyperlipidemia, unspecified
CPT/HCPCS: 36415; 80053; 80061; 82043; 82306; 82310; 82570; 83036; 83970; 84100; 84156; 84520; 85025

== ENCOUNTER 2023-07-07 14:38 | Outpatient (AMB) | payer OTHER, SELFPAY ==
[2023-07-07 14:39] VITALS: BP 122/86; PULSE 68; BMI 34.3
--- NOTE | 2023-07-07 14:39 | A.OFFVIS_ITS ---
Vital Signs 07/07/23 14:39 Height 5 ft 5 in Weight 206 lb 2.115 oz BMI 34.3 BP 122/86 Blood Pressure Location Lt brachial Position Sitting Pulse 68 Pulse Source Pulse Oximeter Intake Visit Reasons: DM-LVM Intake Note: Patient present today to follow up on Type 1 Diabetes Mellitus. 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 Accompanied by: Self / Same As Patient Allergies aspirin [ASA] Allergy (Unknown, Verified 07/07/23 14:46) ANAPHYLAXIS benazepril Allergy (Unknown, Verified 07/07/23 14:46) hyperkalemia Medication List - Last Reconciled 07/07/23 by Nikolai Power MD ezetimibe (Zetia) 10 mg PO DAILY infusion set for insulin pump As directed insulin aspart U-100 (Novolog U-100 Insulin aspart) Use up to 125 units via insulin pump subcutaneously daily; insulin glargine (Lantus Solostar U-100 Insulin) 25 units (0.25 mL) subcut DAILY [insulin pump supplies As directed] insulin syringe-needle U-100 (BD Veo Insulin Syringe Ultra-Fine) As directed lisinopril 2.5 mg PO DAILY 90 days loratadine 10 mg PO DAILY metoprolol succinate ER 100 mg PO DAILY nifedipine ER 60 mg PO DAILY pen needle, diabetic (BD Ultra-Fine Kamala Pen Needle) As directed one daily rosuvastatin 20 mg PO DAILY sodium polystyrene sulf-sorbtl 15-20 gram/60 mL 60 mL PO .three times weekly urine glucose-ketones test (Keto-Diastix strips) As directed HPI Comments Details: Patient is 38 yo male with DM type 1 diagnosed at the age of 13 who presents for continued management of diabetes. . Past medical history: DM1, HTN, HLD Micro and macrovascular complications: + nephropathy, + retinopathy Symptoms reported: no numbness, tingling, cramping in lower extremities Hypoglycemia: Exercise: at work is active Eye exam: , background retinopathy last exam . Needs to make appt CGM: range -, average 158 over the past 2 weeks. CGM active days.96.4 74 % range with 25% hyperglycemia and 1% hypoglycemia. pattern shows post- dinner hyperglycemia with overnight lows tandem T slim control IQ Pump details: Total daily dose 71 Basal is 43%, food bolus 57%, correction bolus %, control IQ 99% of the time. Cartridge and tubing change every 35days. Rare hypoglycemia Jewish profile: Basal rate(s) (units/hour) : 12 AM? to 3 AM? 1.1 units / hr 3 AM? to 7 AM? 1.1 units / hr 7 AM? to 4 PM? 0.9 units / hr 4 PM to 12 AM? 1.2 units / hr Bolus setting Insulin Carbohydrate Ratio (s) 12 AM? to 12 AM? 1:7 Correction Factor / Sensitivity Factor 12 AM? to 7 AM? 1:40 7 AM? to 4 PM? 1:48 4 PM to 12 AM 1:35 Active Insulin Time: Control IQ 5 hours Target(s): 12 AM? to 12 AM? 120 mg/d insulin action time is 4 hrs, BG target is 120mg/dl. eye exam over 1 yr ago ou-background diabetic retinopathy needs to make appt Laboratory Tests 02/19/21 02/19/21 02/19/21 09:39 10:23 10:30 Creatinine Estimated GFR Hgb A1c (Clinic) 7.0 H Triglycerides 112 Cholesterol 163 LDL Cholesterol, Calc 94 HDL Cholesterol 47 TSH 2.45 Microalb/Creat Ratio 1051.7 02/26/21 10:10 Creatinine 3.05 H Estimated GFR 23 Hgb A1c (Clinic) Triglycerides Cholesterol LDL Cholesterol, Calc HDL Cholesterol TSH Microalb/Creat Ratio [facility] Medical History Type 1 diabetes mellitus with nephropathy Proteinuria Type 1 diabetes mellitus with chronic kidney disease Diabetes mellitus type 1, uncontrolled Essential hypertension Hyperlipidemia LDL goal <100 Tinea pedis Chronic kidney disease, stage 4 (severe) Surgical History No pertinent past surgical history Family History Father Diabetes mellitus Mother No problems noted. 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 Absence of acromegalic features. Neck exam reveals nl size thyroid about 15 gms. No thyroid nodules palpable. No carotid bruits present. Lungs CTA. Heart S1 S2, Reg R/R. No M/R/ G. Skin exam reveals absence of vitiligo or acanthosis nigricans. Abdominal exam reveals Soft NT/ND with NA BS. No organomegaly present. Extrem Other: Visual exam of foot performed. No ulcerations or open lesions. No onchomycosis, no callouses.Pulses 2 + distally. Sensation intact to monofilament exam. Vibratory sensation sensed 10 seconds in right, 10 seconds in left with 128 Hz tuning fork Results Reviewed Results Reviewed: Laboratory Last Values Glucose (Clinic) 79 mg/dL (60-115) 07/07/23 14:49 Assessment & Plan Assessment & Plan (1) Type 1 diabetes mellitus with nephropathy: Code(s): E10.21 - Type 1 diabetes mellitus with diabetic nephropathy Category: Medical Plan: See plan below (2) Type 1 diabetes mellitus with chronic kidney disease: Code(s): E10.22 - Type 1 diabetes mellitus with diabetic chronic kidney disease Category: Medical Qualifiers: Chronic kidney disease stage: stage 4 (severe) Qualified Code(s): E10.22 - Type 1 diabetes mellitus with diabetic chronic kidney disease; N18.4 - Chronic kidney disease, stage 4 (severe) Plan: This is a 38-year-old male with history of type 1 diabetes being managed with a tandem T-slim pump control IQ with excellent improved glycemic control and known microvascular complications namely CKD stage 4 and retinopathy. Plan is to continue the current regimen. Patient will follow up with the postal carrier. If post-dinner hyperglycemia continues to occur, perhaps a tighter dinner bolus at 18:00 could be initiated Medications: Discontinued rosuvastatin Discontinued Reason: Doctor's Order 20 mg PO DAILY 90 days 90 tabs 0RF E78.5 - Hyperlipidemia, unspecified Coding Level of Care Code Est Pt Level 4 (07457) Diagnoses Type 1 diabetes mellitus with nephropathy E10.21 Type 1 diabetes mellitus with stage 4 chronic kidney disease E10.22; N18.4 Chronic kidney disease stage: stage 4 (severe)
[2023-07-07 14:53] LABS: Glucose, Whole Blood 79 mg/dL (60-115)
== END 2023-07-07 15:36 | disposition home or self-care (01) ==
PROVIDERS: Visit Provider Internal Medicine Endocrinology, Diabetes & Metabolism
DX: E10.21 Type 1 diabetes mellitus with diabetic nephropathy (principal); E10.22 Type 1 diabetes mellitus with diabetic chronic kidney disease; N18.4 Chronic kidney disease, stage 4 (severe)
CPT/HCPCS: 99214

== ENCOUNTER → 2023-07-07 14:38 | Outpatient (BNVA) | payer OTHER, SELFPAY | PROVIDERS: Visit Provider Internal Medicine Endocrinology, Diabetes & Metabolism | DX: E10.21 Type 1 diabetes mellitus with diabetic nephropathy (principal); E10.22 Type 1 diabetes mellitus with diabetic chronic kidney disease; N18.4 Chronic kidney disease, stage 4 (severe) | CPT/HCPCS: 82947; 99212 ==

== ENCOUNTER 2023-07-25 08:54 | Outpatient (REF) | payer OTHER, SELFPAY ==
[2023-07-25 09:58] LABS: Anion Gap 15 (12-20); Carbon Dioxide 21 mmol/L (22-29); Chloride 109 mmol/L (96-108); Estimated Glomerular Filt Rate 18; Potassium 5.5 mmol/L (3.3-5.1); Sodium 139 mmol/L (135-145)
== END 2023-07-25 08:55 | disposition home or self-care (01) ==
LOC: HO.LAB 08:54
PROVIDERS: PCP Physician Assistant; Visit Provider Internal Medicine Nephrology
DX: E10.21 Type 1 diabetes mellitus with diabetic nephropathy (principal); N18.4 Chronic kidney disease, stage 4 (severe)
CPT/HCPCS: 36415; 80051; 82565

== ENCOUNTER 2023-07-28 14:41 | Outpatient (AMB) | payer OTHER, SELFPAY ==
--- NOTE | 2023-07-28 15:45 | MHC.AMDMED ---
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 Required: No Accompanied by: Self / Same As Patient Allergies aspirin [ASA] Allergy (Unknown, Verified 07/07/23 14:46) ANAPHYLAXIS benazepril Allergy (Unknown, Verified 07/07/23 14:46) hyperkalemia HPI Comprehensive Diabetes Asmnt Most Recent Diabetes Results: Hemoglobin A1c 10.7 % 04/14/18 Microalb/Creat Ratio 1429.7 ug/mg cr (<30) H 07/04/23 Cholesterol 185 mg/dL (<200) 07/04/23 HDL Cholesterol 52 mg/dL (>40) 07/04/23 Triglycerides 91 mg/dL (<150) 07/04/23 Creatinine 3.83 mg/dL (0.5-1.4) H 07/25/23 Blood Urea Nitrogen 46 mg/dL (9-16) H 07/04/23 Sodium 139 mmol/L (135-145) 07/25/23 Potassium 5.5 mmol/L (3.3-5.1) H 07/25/23 Chloride 109 mmol/L (96-108) H 07/25/23 Carbon Dioxide 21 mmol/L (22-29) L 07/25/23 Calcium 9.4 mg/dL (8.4-10.2) 07/04/23 AST 15 U/L (5-37) 07/04/23 ALT 15 U/L (0-40) 07/04/23 Total Protein 7.9 g/dL (6.5-8.0) 07/04/23 Albumin 4.1 g/dL (3.5-5.0) 07/04/23 [facility] Medical History Type 1 diabetes mellitus with nephropathy Proteinuria Type 1 diabetes mellitus with chronic kidney disease Diabetes mellitus type 1, uncontrolled Essential hypertension Hyperlipidemia LDL goal <100 Tinea pedis Chronic kidney disease, stage 4 (severe) Surgical History No pertinent past surgical history Family History Father Diabetes mellitus Mother No problems noted. 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 High Alert: 300 mg/dl ??? Low Alert: 70 mg/dl Patient above target 47% Patient at target 52% Patient below target 1% Average glucose 188 mg/dL for the past 14 days Patient is having evening hyperglycemia, increased insulin to carb ratio between 4 PM and 12 AM, instructed patient if hypoglycemia increases in the evening to change insulin to carb ratio back to 1-7 Patient's last A1c 6.7%, April 2023 Patient's settings verified by Diabetes Education nurse, see change below ?Basal rate(s) (units/hour) : 12 AM? to 3 AM? 1.1 units / hr 3 AM? to 7 AM? 0.9 units / hr 7 AM? to 4 PM? 0.9 units / hr 4 PM to 12 AM? 1.2 units / hr Bolus setting Insulin Carbohydrate Ratio (s) 12 AM? to 6 PM? 1:7 New 6 PM to 12 AM 1:6.5 Correction Factor / Sensitivity Factor 12 AM? to 7 AM? 1:40 7 AM? to 4 PM? 1:48 4 PM to 12 AM 1:35 Active Insulin Time: Control IQ 5 hours Target(s): 12 AM? to 12 AM? 120 mg/dL Patient Instructions: Follow-up with special education paraeducator in 4 months, contact special education paraeducator with questions or concerns Coding Level of Care Code Est Pt Level 1 (83794) Diagnoses Type 1 diabetes mellitus with nephropathy E10.21
== END 2023-07-28 15:47 | disposition home or self-care (01) ==
PROVIDERS: Visit Provider Registered Nurse Diabetes Educator
DX: E10.21 Type 1 diabetes mellitus with diabetic nephropathy (principal)

== ENCOUNTER → 2023-07-28 14:41 | Outpatient (BNVA) | payer OTHER, SELFPAY | PROVIDERS: Visit Provider Registered Nurse Diabetes Educator | DX: E10.65 Type 1 diabetes mellitus with hyperglycemia (principal); E10.22 Type 1 diabetes mellitus with diabetic chronic kidney disease; E10.21 Type 1 diabetes mellitus with diabetic nephropathy; I12.9 Hypertensive chronic kidney disease with stage 1 through stage 4 chronic kidney disease, or unspecified chronic kidney disease; N18.4 Chronic kidney disease, stage 4 (severe); Z96.41 Presence of insulin pump (external) (internal); Z79.4 Long term (current) use of insulin; Z46.81 Encounter for fitting and adjustment of insulin pump | CPT/HCPCS: 99211 ==

== ENCOUNTER 2023-09-17 11:01 | Outpatient (AMB) | payer OTHER, SELFPAY ==
--- NOTE | 2023-09-17 11:05 | HO.NEPHOV_ITS ---
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 His blood sugar controls are fair. He has type 1 diabetes but denies retinopathy or neuropathy. He does not have any edema. His blood pressure has been at goal. He denies uremic symptoms. He does not have any chest pain, shortness of breath, proximal nocturnal dyspnea, orthopnea, nausea, vomiting, diarrhea. He claims to be compliant with his medications. He remains employed and is active. [facility] Medical History Type 1 diabetes mellitus with nephropathy Proteinuria Type 1 diabetes mellitus with chronic kidney disease Diabetes mellitus type 1, uncontrolled Essential hypertension Hyperlipidemia LDL goal <100 Tinea pedis Chronic kidney disease, stage 4 (severe) Surgical History No pertinent past surgical history Family History Father Diabetes mellitus Mother No problems noted. 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 Cognitive needs: No Hearing needs: No Vision needs: No Physical Exam Const General: comfortable and no acute distress Orientation/consciousness: patient oriented x3 HEENT Head: Yes normocephalic Mouth: Normal oral and palatal mucosa present Eyes EOM: EOMs intact bilaterally Neck Neck: Yes supple Resp Auscultation: clear to auscultation bilaterally Cardio Jugular venous distension: no JVD Rate: regular rate GI Palpation (GI): Soft to palpation Auscultation: normal bowel sounds General: Yes no CVA tenderness Back/Spine/Pelvis Back: no CVA tenderness Skin General skin exam: no rashes or lesions noted Neuro General: patient oriented x3 and moves all extremities Extrem General: Yes no pedal edema Results Reviewed Nephrology Results: Hgb 15.4 g/dl (14.0-18.0) 07/04/23 WBC 9.6 X10*3/uL (4.8-10.8) 07/04/23 Plt Count 197 X10*3/uL (160-400) 07/04/23 Sodium 139 mmol/L (135-145) 07/25/23 Potassium 5.5 mmol/L (3.3-5.1) H 07/25/23 Chloride 109 mmol/L (96-108) H 07/25/23 Carbon Dioxide 21 mmol/L (22-29) L 07/25/23 BUN 46 mg/dL (9-16) H 07/04/23 Creatinine 3.83 mg/dL (0.5-1.4) H 07/25/23 Calcium 9.4 mg/dL (8.4-10.2) 07/04/23 Phosphorus 2.9 mg/dL (2.7-4.5) 07/04/23 PTH Intact 343.2 pg/mL (8.7-77.1) H 07/04/23 Urine Creatinine 87.01 mg/dL 07/04/23 Protein/Creatinin Ratio 2.39 (<0.2) H 07/04/23 Assessment & Plan Assessment & Plan (1) Type 1 diabetes mellitus with nephropathy: Code(s): E10.21 - Type 1 diabetes mellitus with diabetic nephropathy Category: Medical (2) Type 1 diabetes mellitus with chronic kidney disease: Code(s): E10.22 - Type 1 diabetes mellitus with diabetic chronic kidney disease Category: Medical Qualifiers: Chronic kidney disease stage: stage 4 (severe) Qualified Code(s): E10.22 - Type 1 diabetes mellitus with diabetic chronic kidney disease; N18.4 - Chronic kidney disease, stage 4 (severe) (3) Essential hypertension: Code(s): I10 - Essential (primary) hypertension Category: Medical (4) Chronic kidney disease, stage 4 (severe): Code(s): N18.4 - Chronic kidney disease, stage 4 (severe) Category: Medical (5) Hyperkalemia: Code(s): E87.5 - Hyperkalemia Category: Medical Plan Rastafarian has advanced chronic kidney disease. His renal functions had been stable. His blood pressure is at goal. He is tolerating low-dose of PEPE- inhibitor. He has no uremic symptoms. If his GFR continues to decline, I plan to refer him for a kidney and pancreas transplant. He should avoid nonsteroidal anti-inflammatories and maintain good hydration. I did not make any medication changes today but rather discussed about his CKD and its management strategies. Follow-up blood work ordered and follow-up appointment given. Answered all questions Orders: Orders Electrolytes Today E10.21 - Type 1 diabetes mellitus with diabetic nephropathy Blood Urea Nitrogen Today E10.21 - Type 1 diabetes mellitus with diabetic nephropathy Creatinine Today E10.21 - Type 1 diabetes mellitus with diabetic nephropathy Blood Urea Nitrogen 2 Months E10.21 - Type 1 diabetes mellitus with diabetic nephropathy, E10.22 - Type 1 diabetes mellitus with diabetic chronic kidney disease, E87.5 - Hyperkalemia, I10 - Essential (primary) hypertension, N18.4 - Chronic kidney disease, stage 4 (severe) Creatinine 2 Months E10.21 - Type 1 diabetes mellitus with diabetic nephropathy, E10.22 - Type 1 diabetes mellitus with diabetic chronic kidney disease, E87.5 - Hyperkalemia, I10 - Essential (primary) hypertension, N18.4 - Chronic kidney disease, stage 4 (severe) Electrolytes 2 Months E10.21 - Type 1 diabetes mellitus with diabetic nephropathy, E10.22 - Type 1 diabetes mellitus with diabetic chronic kidney disease, E87.5 - Hyperkalemia, I10 - Essential (primary) hypertension, N18.4 - Chronic kidney disease, stage 4 (severe) Medications: Changed From sodium polystyrene sulf-sorbtl 15-20 gram/60 mL 60 mL PO .three times weekly E87.5 - Hyperkalemia To sodium polystyrene sulf-sorbtl 15-20 gram/60 mL 120 mL PO .three times weekly 473 mL 4RF E87.5 - Hyperkalemia Refilled metoprolol succinate ER 100 mg PO DAILY 90 tabs 4RF I10 - Essential (primary) hypertension Coding Level of Care Code Est Pt Level 4 (26044) Diagnoses Type 1 diabetes mellitus with nephropathy E10.21 Type 1 diabetes mellitus with stage 4 chronic kidney disease E10.22; N18.4 Chronic kidney disease stage: stage 4 (severe) Essential hypertension I10 Chronic kidney disease, stage 4 (severe) N18.4 Hyperkalemia E87.5
[2023-09-17 11:06] VITALS: BP 130/80; PULSE 67; O2SAT 98; BMI 33.2
== END 2023-09-17 11:26 | disposition home or self-care (01) ==
PROVIDERS: Visit Provider Internal Medicine Nephrology
DX: E10.21 Type 1 diabetes mellitus with diabetic nephropathy (principal); E10.22 Type 1 diabetes mellitus with diabetic chronic kidney disease; N18.4 Chronic kidney disease, stage 4 (severe); I12.9 Hypertensive chronic kidney disease with stage 1 through stage 4 chronic kidney disease, or unspecified chronic kidney disease; E87.5 Hyperkalemia
CPT/HCPCS: 99214

== ENCOUNTER → 2023-09-17 11:01 | Outpatient (BNVA) | payer OTHER, SELFPAY | PROVIDERS: Visit Provider Internal Medicine Nephrology | DX: E10.65 Type 1 diabetes mellitus with hyperglycemia (principal); E10.21 Type 1 diabetes mellitus with diabetic nephropathy; E10.22 Type 1 diabetes mellitus with diabetic chronic kidney disease; I12.9 Hypertensive chronic kidney disease with stage 1 through stage 4 chronic kidney disease, or unspecified chronic kidney disease; N18.4 Chronic kidney disease, stage 4 (severe); E87.5 Hyperkalemia; Z83.3 Family history of diabetes mellitus | CPT/HCPCS: 99212 ==

== ENCOUNTER 2023-09-17 11:35 | Outpatient (REF) | payer OTHER, SELFPAY ==
[2023-09-17 14:05] LABS: Anion Gap 14 (12-20); Blood Urea Nitrogen 47 mg/dL (9-16); Carbon Dioxide 21 mmol/L (22-29); Chloride 110 mmol/L (96-108); Estimated Glomerular Filt Rate 20; Potassium 5.3 mmol/L (3.3-5.1); Sodium 140 mmol/L (135-145)
== END 2023-09-17 11:36 | disposition home or self-care (01) ==
LOC: HO.10HDL 11:35
PROVIDERS: Visit Provider Internal Medicine Nephrology
DX: E10.21 Type 1 diabetes mellitus with diabetic nephropathy (principal)
CPT/HCPCS: 36415; 80051; 82565; 84520

== ENCOUNTER 2023-10-08 14:46 | Outpatient (AMB) | payer OTHER, SELFPAY ==
--- NOTE | 2023-10-08 14:56 | A.OFFVIS_ITS ---
Vital Signs 10/08/23 15:03 Height 5 ft 5 in Weight 198 lb 6.656 oz BMI 33.0 BP 108/70 Blood Pressure Location Rt brachial Position Sitting Pulse 95 Pulse Source Pulse Oximeter Intake Visit Reasons: DM/LVM Intake Note: Patient presents today for a follow-up on Type 1 Diabetes Mellitus: Last Diabetic Eye exam: DUE Last Podiatry Exam: Does not see a Senior Budget Analyst Most recent HbA1c: 7.3%, 10/08/2023 Random Glucose- 112mg/dL, Today Inbound Ingredient Logistics Specialist Required: No Accompanied by: Self / Same As Patient Allergies aspirin [ASA] Allergy (Unknown, Verified 10/08/23 15:04) ANAPHYLAXIS benazepril Allergy (Unknown, Verified 10/08/23 15:04) hyperkalemia HPI Comments Details: Patient is 38 yo male with DM type 1 diagnosed at the age of 13 who presents for continued management of diabetes. . Past medical history: DM1, HTN, HLD, CKD followed by nephrology. dexcom sensor average glucose: [188 ] Glucose Management indicator 7.8 TIme in range: Eighteen % very high (above 250) 29 % high (181-250) 52 % in range (70-180] 1 % low (69-55) 0 % very low (below 54) Overall trend numbers higher from 4-12 pm He is control IQ 99% of the time sensor active 97% of the time enters 330 carbs per day 91 units of insulin per day: Basal 45% 41 units bolus 55% 50 units Most Recent Diabetes Results: Hemoglobin A1c 10.7 % 04/14/18 Microalb/Creat Ratio 1429.7 ug/mg cr (<30) H 07/04/23 Cholesterol 185 mg/dL (<200) 07/04/23 HDL Cholesterol 52 mg/dL (>40) 07/04/23 Triglycerides 91 mg/dL (<150) 07/04/23 Creatinine 3.83 mg/dL (0.5-1.4) H 07/25/23 Blood Urea Nitrogen 46 mg/dL (9-16) H 07/04/23 Sodium 139 mmol/L (135-145) 07/25/23 Potassium 5.5 mmol/L (3.3-5.1) H 07/25/23 Chloride 109 mmol/L (96-108) H 07/25/23 Carbon Dioxide 21 mmol/L (22-29) L 07/25/23 Calcium 9.4 mg/dL (8.4-10.2) 07/04/23 AST 15 U/L (5-37) 07/04/23 ALT 15 U/L (0-40) 07/04/23 Total Protein 7.9 g/dL (6.5-8.0) 07/04/23 Albumin 4.1 g/dL (3.5-5.0) 07/04/23 He is keeping his pump on the [employer] Active Program ?Basal rate(s) (units/hour) : 12 AM? to 3 AM? 1.1 units / hr 3 AM? to 7 AM? 1.1 units / hr 7 AM? to 4 PM? 0.9 units / hr 4 PM to 12 AM? 1.2 units / hr Bolus setting Insulin Carbohydrate Ratio (s) 12 AM? to 6 PM? 1:7 NEW 2pm to 4pm 6.5 Correction Factor / Sensitivity Factor 12 AM? to 7 AM? 1:40 7 AM? to 4 PM? 1:48 NEW 1:45 4 PM to 12 AM 1:35 Active Insulin Time: Control IQ 5 hours Target(s): 12 AM? to 12 AM? 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 Needs to make appt and would like referral to opth eye exam over 1 yr ago ou-background diabetic retinopathy needs to make appt [facility] Medical History Type 1 diabetes mellitus with nephropathy Proteinuria Type 1 diabetes mellitus with chronic kidney disease Diabetes mellitus type 1, uncontrolled Essential hypertension Hyperlipidemia LDL goal <100 Tinea pedis Chronic kidney disease, stage 4 (severe) Surgical History No pertinent past surgical history Family History Father Diabetes mellitus Mother No problems noted. 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 Absence of acromegalic features. Neck exam r eveals nl size thyroid about 15 gms. No thyroid nodules palpable. . Heart S1 S2, Reg R/R. No M/R G. Skin exam reveals absence of vitiligo or acanthosis nigricans. Extrem Other: Declined foot exam today Results AMB Hemoglobin A1c AMB Hemoglobin A1c 7.3 % Last Edit by KERA Rubio on 10/08/23 15:25 Results Reviewed Results Reviewed: Laboratory Last Values Glucose (Clinic) 112 mg/dL (60-115) 10/08/23 15:10 Hgb A1c (Clinic) 7.3 % (4.0-6.0) H 10/08/23 15:25 Laboratory Tests 12/04/22 06/26/23 07/04/23 14:07 14:46 11:08 Plt Count 197 Potassium 5.3 H Creatinine Hgb A1c (Clinic) 7.3 H 6.7 H Hemoglobin A1c % 7.3 H AST 15 ALT 15 Triglycerides 87 Cholesterol 185 LDL Cholesterol, Calc 115 H HDL Cholesterol 53 25-OH Vitamin D Total 17.7 L PTH Intact 343.2 H Urine Creatinine Urine Microalbumin Microalb/Creat Ratio Protein/Creatinin Ratio 07/04/23 07/25/23 09/17/23 11:10 08:57 11:40 Plt Count Potassium 5.5 H 5.3 H Creatinine 3.53 H Hgb A1c (Clinic) Hemoglobin A1c % AST ALT Triglycerides Cholesterol LDL Cholesterol, Calc HDL Cholesterol 25-OH Vitamin D Total PTH Intact Urine Creatinine 87.36 Urine Microalbumin 1249.0 Microalb/Creat Ratio 1429.7 H Protein/Creatinin Ratio 2.39 H Assessment & Plan Assessment & Plan (1) Type 1 diabetes mellitus with nephropathy: Code(s): E10.21 - Type 1 diabetes mellitus with diabetic nephropathy Category: Medical Plan: Type 1 diabetic on Omni pods 5 insulin pump with Dexcom sensor. A1c in the office today 7.3%. Adjustments were made to his insulin correction factor and insulin to carb ratio in the evenings to give him more bolus insulin at that time. Prescription was sent for insulin syringes, and glucagon nasal spray, ketone test strips. Orders: Orders AMB Hemoglobin A1c Today E10.22 - Type 1 diabetes mellitus with diabetic chronic kidney disease, N18.4 - Chronic kidney disease, stage 4 (severe) Medications: New glucagon 3 mg/actuation (Baqsimi) 3 mg intranasal .prn 30 days PRN 2 ea 1RF unresponsive hypoglycemia MDD 6 mg Changed From insulin glargine (Lantus Solostar U-100 Insulin) 25 units (0.25 mL) subcut DAILY 15 mL 5RF To insulin glargine (Lantus Solostar U-100 Insulin) 40 units (0.4 mL) subcut DAILY 30 days 12 mL 5RF From urine glucose-ketones test (Keto-Diastix strips) As directed 50 ea To urine glucose-ketones test (Keto-Diastix strips) As directed glucose over 250, illness, nausea,vomiting 50 ea 2RF Refilled insulin syringe-needle U-100 (BD Veo Insulin Syringe Ultra-Fine) As directed 100 ea 2RF E10.22 - Type 1 diabetes mellitus with diabetic chronic kidney disease, N18.4 - Chronic kidney disease, stage 4 (severe) Patient Instructions: The patient was counseled to always carry a source of sugar and on the rule of 15's: Take 3 glucose tablets and repeat again in 15 minutes if blood sugar is not in normal range. Continue to repeat every 15 minutes until blood sugar is normal. Symptoms of DKA were reviewed: early: frequent urination, dry mouth, fatigue, feeling ill, severe symptoms: ketones in the urine, abdominal pain, nausea, vomiting and weakness. It is important to hydrate with sugar free liquids every 30 minutes and bring the sugars down to normal levels. Troubleshooting after starting new pod or inserting new insulin set: Occlusion, adhesive tape sensitivity, redness Check BG 2 hours after site change Safety information: Importance of a backup plan, for manual injections, proper prescriptions and emergency supplies ketone strips, and rules for testing for ketones patient was counseled to achieve a target A1C of 7% (154 avg). Fasting blood sugars should be 90-130 in the morning and less than 180 two hours after meals. Reviewed the relationship between poor diabetic control and the developement of complications Coding Level of Care Code Est Pt Level 5 (28261) Complex EM visit Add On G2211 Diagnoses Type 1 diabetes mellitus with nephropathy E10.21 Time Spent (min) 45 Comment Time spent reviewing labs/provider notes, sensor/pump reports, face to face, chart doc
[2023-10-08 15:03] VITALS: BP 108/70; PULSE 95; BMI 33.0
[2023-10-08 15:14] LABS: Glucose, Whole Blood 112 mg/dL (60-115)
== END 2023-10-08 15:43 | disposition home or self-care (01) ==
PROVIDERS: Visit Provider Nurse Practitioner Adult Health
DX: E10.22 Type 1 diabetes mellitus with diabetic chronic kidney disease (principal); N18.4 Chronic kidney disease, stage 4 (severe); E10.21 Type 1 diabetes mellitus with diabetic nephropathy
CPT/HCPCS: 99215; G2211

== ENCOUNTER → 2023-10-08 14:46 | Outpatient (BNVA) | payer OTHER, SELFPAY | PROVIDERS: Visit Provider Nurse Practitioner Adult Health | DX: E10.22 Type 1 diabetes mellitus with diabetic chronic kidney disease (principal); N18.4 Chronic kidney disease, stage 4 (severe); Z96.41 Presence of insulin pump (external) (internal) | CPT/HCPCS: 82947; 83036; 99212 ==

== ENCOUNTER 2023-11-26 15:42 | Outpatient (AMB) | payer OTHER, SELFPAY ==
--- NOTE | 2023-11-26 16:11 | A.OFFVIS_ITS ---
Intake Intake Visit Reasons: DM-lvm Press Operator Required: No Accompanied by: Self / Same As Patient Allergies aspirin [ASA] Allergy (Unknown, Verified 10/08/23 15:04) ANAPHYLAXIS benazepril Allergy (Unknown, Verified 10/08/23 15:04) hyperkalemia HPI Comprehensive Diabetes Asmnt Most Recent Diabetes Results: Hemoglobin A1c 10.7 % 04/14/18 Microalb/Creat Ratio 1429.7 ug/mg cr (<30) H 07/04/23 Cholesterol 185 mg/dL (<200) 07/04/23 HDL Cholesterol 52 mg/dL (>40) 07/04/23 Triglycerides 91 mg/dL (<150) 07/04/23 Creatinine 3.53 mg/dL (0.5-1.4) H 09/17/23 Blood Urea Nitrogen 47 mg/dL (9-16) H 09/17/23 Sodium 140 mmol/L (135-145) 09/17/23 Potassium 5.3 mmol/L (3.3-5.1) H 09/17/23 Chloride 110 mmol/L (96-108) H 09/17/23 Carbon Dioxide 21 mmol/L (22-29) L 09/17/23 Calcium 9.4 mg/dL (8.4-10.2) 07/04/23 AST 15 U/L (5-37) 07/04/23 ALT 15 U/L (0-40) 07/04/23 Total Protein 7.9 g/dL (6.5-8.0) 07/04/23 Albumin 4.1 g/dL (3.5-5.0) 07/04/23 [facility] Medical History Type 1 diabetes mellitus with nephropathy Proteinuria Type 1 diabetes mellitus with chronic kidney disease Diabetes mellitus type 1, uncontrolled Essential hypertension Hyperlipidemia LDL goal <100 Tinea pedis Chronic kidney disease, stage 4 (severe) Surgical History No pertinent past surgical history Family History Father Diabetes mellitus Mother No problems noted. 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 High Alert: 300 mg/dl ??? Low Alert: 70 mg/dl Patient above target 39.8% Patient at target 63% Patient below target 0.1% Average glucose 171 mg/dL for the past 14 days Patient overall control is fair, discussed with patient the importance of bolusing prior to meals, after review of patient's pump data it appears the patient boluses late so glucose is already increasing by the time insulin is administered Patient stated at this time he is not interested in upgrading to Dexcom G6 Patient has follow-up appointment with nurse practitioner in December 2023 at that appointment he will have next A1c drawn Patient's last A1c 7.3%, September 2023 Patient's settings verified by Diabetes Education nurse no changes made to patient's insulin pump settings at today's visit ?Basal rate(s) (units/hour) : 12 AM? to 3 AM? 1.1 units / hr 3 AM? to 7 AM? 1.1 units / hr 7 AM? to 4 PM? 0.9 units / hr 4 PM to 12 AM? 1.2 units / hr Bolus setting Insulin Carbohydrate Ratio (s) 12 AM? to 2 PM? 1:7 2PM to 4 PM 1:6.5 4 PM to 12 AM 1:6.3 Correction Factor / Sensitivity Factor 12 AM? to 7 AM? 1:40 7 AM? to 2 PM? 1:48 2 PM to 4 PM 1:45 4 PM to 12 AM 1:33 Active Insulin Time: Control IQ 5 hours Target(s): Control IQ target 2 AM? to 12 AM?110 mg/dL Control IQ off target 12 AM? to 12 AM? 120 mg/dL Coding Level of Care Code Est Pt Level 1 (10305) Diagnoses Type 1 diabetes mellitus with nephropathy E10.21
== END 2023-11-26 16:13 | disposition home or self-care (01) ==
PROVIDERS: Visit Provider Registered Nurse Diabetes Educator
DX: E10.21 Type 1 diabetes mellitus with diabetic nephropathy (principal)

== ENCOUNTER → 2023-11-26 15:42 | Outpatient (BNVA) | payer OTHER, SELFPAY | PROVIDERS: Visit Provider Registered Nurse Diabetes Educator | DX: Z46.81 Encounter for fitting and adjustment of insulin pump (principal); E10.21 Type 1 diabetes mellitus with diabetic nephropathy | CPT/HCPCS: 99211 ==

== ENCOUNTER 2023-11-28 11:01 | Outpatient (REF) | payer OTHER, SELFPAY ==
[2023-11-28 13:17] LABS: Anion Gap 12 (12-20); Blood Urea Nitrogen 39 mg/dL (9-16); Carbon Dioxide 21 mmol/L (22-29); Chloride 111 mmol/L (96-108); Estimated Glomerular Filt Rate 20; Potassium 5.1 mmol/L (3.3-5.1); Sodium 139 mmol/L (135-145)
== END 2023-11-28 11:02 | disposition home or self-care (01) ==
LOC: HO.LAB 11:01
PROVIDERS: PCP Physician Assistant; Visit Provider Internal Medicine Nephrology
DX: E10.21 Type 1 diabetes mellitus with diabetic nephropathy (principal); E87.5 Hyperkalemia; E10.22 Type 1 diabetes mellitus with diabetic chronic kidney disease; I12.9 Hypertensive chronic kidney disease with stage 1 through stage 4 chronic kidney disease, or unspecified chronic kidney disease; N18.4 Chronic kidney disease, stage 4 (severe)
CPT/HCPCS: 36415; 80051; 82565; 84520

== ENCOUNTER 2023-12-10 15:21 | Outpatient (AMB) | payer OTHER, SELFPAY ==
[2023-12-10 15:28] VITALS: BP 130/72; PULSE 69; O2SAT 98; BMI 33.5
--- NOTE | 2023-12-10 15:28 | HO.NEPHOV ---
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 His blood sugar controls are fair. He has type 1 diabetes but denies retinopathy or neuropathy. He does not have any edema. His blood pressure has been at goal. He denies uremic symptoms. He does not have any chest pain, shortness of breath, proximal nocturnal dyspnea, orthopnea, nausea, vomiting, diarrhea. He claims to be compliant with his medications. He remains employed and is active [facility] Medical History Type 1 diabetes mellitus with nephropathy Proteinuria Type 1 diabetes mellitus with chronic kidney disease Diabetes mellitus type 1, uncontrolled Essential hypertension Hyperlipidemia LDL goal <100 Tinea pedis Chronic kidney disease, stage 4 (severe) Surgical History No pertinent past surgical history Family History Father Diabetes mellitus Mother No problems noted. 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 Cognitive needs: No Hearing needs: No Vision needs: No Review of Systems Const All systems reviewed & are unremarkable except as noted in HPI and below Physical Exam Vital Signs: Last Vital Signs Pulse 69 12/10/23 15:28 BP 130/72 12/10/23 15:28 Pulse Ox 98 12/10/23 15:28 Oxygen Delivery Method Room Air 12/10/23 15:28 BMI result Body Mass Index 33.5 Const General: comfortable and no acute distress Orientation/consciousness: patient oriented x3 HEENT Head: Yes normocephalic Mouth: Normal oral and palatal mucosa present Eyes EOM: EOMs intact bilaterally Neck Neck: Yes supple Resp Auscultation: clear to auscultation bilaterally Cardio Jugular venous distension: no JVD Rate: regular rate GI Palpation (GI): Soft to palpation Auscultation: normal bowel sounds General: Yes no CVA tenderness Back/Spine/Pelvis Back: no CVA tenderness Skin General skin exam: no rashes or lesions noted Neuro General: patient oriented x3 and moves all extremities Extrem General: Yes no pedal edema Results Reviewed Nephrology Results: Sodium 139 mmol/L (135-145) 11/28/23 Potassium 5.1 mmol/L (3.3-5.1) 11/28/23 Chloride 111 mmol/L (96-108) H 11/28/23 Carbon Dioxide 21 mmol/L (22-29) L 11/28/23 BUN 39 mg/dL (9-16) H 11/28/23 Creatinine 3.40 mg/dL (0.5-1.4) H 11/28/23 Assessment & Plan Assessment & Plan (1) Chronic kidney disease, stage 4 (severe): Code(s): N18.4 - Chronic kidney disease, stage 4 (severe) Category: Medical (2) Essential hypertension: Code(s): I10 - Essential (primary) hypertension Category: Medical Plan Temple has advanced chronic kidney disease. His renal functions had been stable. His blood pressure is at goal. He is tolerating low-dose of PEPE-inhibitor. He has no uremic symptoms. If his GFR continues to decline, I plan to refer him for a kidney and pancreas transplant. He should avoid nonsteroidal anti-inflammatories and maintain good hydration. I did not make any medication changes today but rather discussed about his CKD and its management strategies. Follow-up blood work ordered and follow-up appointment given. Answered all questions Orders: Orders Electrolytes 3 Months I10 - Essential (primary) hypertension, N18.4 - Chronic kidney disease, stage 4 (severe) Creatinine 3 Months I10 - Essential (primary) hypertension, N18.4 - Chronic kidney disease, stage 4 (severe) Blood Urea Nitrogen 3 Months I10 - Essential (primary) hypertension, N18.4 - Chronic kidney disease, stage 4 (severe) Coding Level of Care Code Est Pt Level 4 (49171) Diagnoses Chronic kidney disease, stage 4 (severe) N18.4 Essential hypertension I10
== END 2023-12-10 16:02 | disposition home or self-care (01) ==
PROVIDERS: Visit Provider Internal Medicine Nephrology
DX: I12.9 Hypertensive chronic kidney disease with stage 1 through stage 4 chronic kidney disease, or unspecified chronic kidney disease (principal); N18.4 Chronic kidney disease, stage 4 (severe)
CPT/HCPCS: 99214

== ENCOUNTER → 2023-12-10 15:21 | Outpatient (BNVA) | payer OTHER, SELFPAY | PROVIDERS: Visit Provider Internal Medicine Nephrology | DX: I12.9 Hypertensive chronic kidney disease with stage 1 through stage 4 chronic kidney disease, or unspecified chronic kidney disease (principal); E10.21 Type 1 diabetes mellitus with diabetic nephropathy; E10.22 Type 1 diabetes mellitus with diabetic chronic kidney disease; N18.4 Chronic kidney disease, stage 4 (severe) | CPT/HCPCS: 99212 ==

== ENCOUNTER 2023-12-29 15:29 | Outpatient (AMB) | payer OTHER, SELFPAY ==
--- NOTE | 2023-12-29 16:03 | MHC.PC.OV ---
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 Required: No Accompanied by: Self / Same As Patient Allergies aspirin [ASA] Allergy (Unknown, Verified 12/29/23 16:20) ANAPHYLAXIS benazepril Allergy (Unknown, Verified 12/29/23 16:20) hyperkalemia Medication List - Last Reconciled 12/29/23 by Ashok Hurtado PA-C ezetimibe (Zetia) 10 mg PO DAILY glucagon 3 mg/actuation (Baqsimi) 3 mg intranasal .prn PRN 30 days MDD 6 mg infusion set for insulin pump As directed insulin aspart U-100 (Novolog U-100 Insulin aspart) Via pump subcutaneously daily; insulin glargine (Lantus Solostar U-100 Insulin) 40 units (0.4 mL) subcut DAILY 30 days [insulin pump supplies As directed] insulin syringe-needle U-100 (BD Veo Insulin Syringe Ultra-Fine) As directed lisinopril 2.5 mg PO DAILY 90 days metoprolol succinate ER 100 mg PO DAILY nifedipine ER 60 mg PO DAILY pen needle, diabetic (BD Ultra-Fine Kamala Pen Needle) As directed one daily rosuvastatin 20 mg PO DAILY sodium polystyrene sulf-sorbtl 15-20 gram/60 mL 120 mL PO .three times weekly urine glucose-ketones test (Keto-Diastix strips) As directed glucose over 250, illness, nausea,vomiting Tobacco use date assessed: 12/29/23 Dental Screening Dental Screen Date: 12/29/23 Did you have a dental visit in the last 12 months?: Yes Did you have a dental problem in the last 6 months where you did not have access to dental care?: No Was dental information given to patient?: Patient has dentist HPI f/u DMI / HLD HPI Details Patient is a 38-year-old male here today for a follow-up visit. Patient has a past medical history significant for type 1 diabetes, CKD stage for, hypertension, hyperlipidemia. Type 1 diabetes: Patient is followed by endocrinology and continues on continues glucose monitoring and insulin pump.? Most recent A1c at 7.3..? He does report blood sugars have been fairly stable. CKD stage 4:? Patient is followed by Nephrology, blood pressure today in office acceptable. GFR remains around 20. He has been referred for kidney and pancreas transplant. ., Hyperkalemia: Has seen his top ironer and prescribed polystyrene to take 60 mg 3x weekly due to chronic hyperkalemia. 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 Maternal Grandfather Diabetes mellitus Social History Household Members: Spouse Housing: Apartment Alcohol intake: current Alcohol intake frequency: holidays/special occasions only Patient Tobacco Use Status: Former Tobacco user Years Smoked: quit 2013 e-Cigarette/Vaping Use: Never Used Second Hand Smoke Exposure: No service: No Current occupational status: employed Current occupation: [employer] Cognitive needs: No Hearing needs: No Vision needs: No Questionnaire PHQ-9 Over the last 2 weeks, how often have you been bothered by any of the following problems? 1. Little interest or pleasure in doing things: not at all 2. Feeling down, depressed, or hopeless: not at all 3. Trouble falling or staying asleep, or sleeping too much: not at all 4. Feeling tired or having little energy: not at all 5. Poor appetite or overeating: not at all 6. Feeling bad about yourself - or that you are a failure or have let yourself or your family down: not at all 7. Trouble concentrating on things, such as reading the newspaper or watching television: not at all 8. Moving or speaking so slowly that other people could have noticed. Or the opposite - being so fidgety or restless that you have been moving around a lot more than usual: not at all 9. Thoughts that you would be better off or of hurting yourself in some way: not at all Total score: 0 Depression Screening Interpretation: Negative Depression Screening Done: Yes 28841 - PHQ-9 Billing: Yes Source: Developed by Drs. Nikolai Martinez, Alicia Aaron, Shane Potter and colleagues, with an educational han from [employer] Thrive Questionnaire Date Thrive assessed: 06/27/21 I am a: Patient What is your living situation today?: I have a steady place to live Within the past 12 months, did the food you bought not last and you didn't have the money to get more?: Never true Within the past 12 months, did you worry whether your food would run out before you got money to buy more?: Never true Do you have trouble paying for medicines?: No Do you have trouble getting transportation to medical appointments?: No Do you have trouble paying your heating and electricity bill?: No Do you have trouble taking care of your child, family member or friend?: No Do you have trouble with day-to-day activities such as bathing, preparing meals, shopping, managing finances, etc.?: No Are you currently unemployed and looking for a job?: No Are you interested in more education?: No Please select the resources that you would like help with: None Currently or been in a relationship where the following occur: No concerns reported THRIVE Score: 0 AUDIT C Alcohol Use Questionnaire (AUDIT-C) 1. How often do you have a drink containing alcohol?: Monthly or less 2. How many drinks containing alcohol do you have on a typical day when you are drinking?: 1 or 2 3. How often do you have six or more drinks on one occasion?: Never Total Score: 1 CAMILO-7 AMB Questionnaire CAMILO-7 Date CAMILO - 7 assessed: 12/29/23 Feeling nervous, anxious, or on edge: 0 = Not at all Not being able to stop or control worryin = Not at all Worrying too much about different things: 0 = Not at all Trouble relaxin = Not at all Being so restless that it is hard to sit still: 0 = Not at all Becoming easily annoyed or irritable: 0 = Not at all Feeling afraid as if something awful might happen: 0 = Not at all Total CAMILO-7 score (0-4 normal; 5-9 mild; 10-14 moderate; 15-21 severe): 0 Source: Developed by Drs. Nikolai Martinez, Alicia Aaron, Shane Potter and colleagues, with an educational han from [employer] CAMILO-7 Assessment Billing CAMILO-7 Assessment Tool: CAMILO-7 Assessment 26402 Review of Systems Const Denies headache(s) Eyes Denies loss of vision ENT Denies vertigo, Denies dizziness, Denies headache(s) and Denies sore throat Card Denies chest pain, Denies leg edema and Denies lightheadedness Resp Denies cough, Denies hemoptysis and Denies wheezing GI Denies abdominal pain, Denies melena, Denies constipation, Denies diarrhea and Denies vomiting Denies dysuria, Denies urinary frequency and Denies urinary urgency Musc Denies arthralgias, Denies joint swelling, Denies numbness and Denies tingling Neuro Denies Abnormal speech present, Denies behavioral changes, Denies vertigo, Denies dizziness, Denies headache(s), Denies loss of vision, Denies memory loss, Denies numbness and Denies tingling Psych Denies anxiety, Denies behavioral changes, Denies depression, Denies memory loss and Denies panic attacks Dwaine/Lymph Denies easy bleeding and Denies easy bruising Aller/Immun Denies wheezing Physical exam (Primary Care) Vital Signs: Last Vital Signs Pulse 60 12/29/23 16:04 BP 130/75 12/29/23 16:29 Pulse Ox 98 12/29/23 16:04 Oxygen Delivery Method Room Air 12/29/23 16:04 BMI result Body Mass Index 32.9 Tobacco/Smoking Status: Tobacco use Status Tobacco use date assessed 12/29/23 12/29/23 16:07 Patient Tobacco Use Status Former Tobacco user 12/29/23 16:07 e-Cigarette/Vaping Use Never Used 12/29/23 16:07 PHQ-9: PHQ-9 Score PHQ-9: Total score 0 12/29/23 16:22 Depression Screening Interpretation: Negative Thrive Assessment: Date of Thrive Assessment Date Thrive assessed 06/27/21 12/29/23 16:07 Currently or been in a relationship where the following occur: No concerns reported Const General: healthy appearing, no acute distress, alert and awake Nutritional Appearance: well nourished Orientation/consciousness: oriented to person, oriented to place and oriented to time HENMT Ears: TM's normal bilaterally General nose exam: Normal nasal mucous membranes and turbinates present Eyes Conjunctivae: conjunctivae normal Sclerae: sclerae normal Pupils: Equal, round and reactive pupils present Neck Neck: Yes no lymphadenopathy and Yes no JVD Thyroid: Thyroid normal Carotids: no bruits Resp Effort & Inspection: normal respiratory effort and not tachypneic Auscultation: no crackles, no rales, no rhonchi and no wheezes Cardio Rate: regular rate Rhythm: regular rhythm Heart sounds: no murmurs and normal S1 and S2 GI Palpation (GI): Soft to palpation, nontender, no hepatomegaly and no splenomegaly Auscultation: normal bowel sounds Skin General skin exam: no rashes or lesions noted and dry skin Neuro General: oriented to person, oriented to place and oriented to time Cranial nerves: Yes Equal, round and reactive pupils present Speech: No Abnormal speech present Gait exam (Neuro): Normal gait present Motor exam (neuro): no tremor noted Extrem Right upper extremity: full ROM Left upper extremity: full ROM Right lower extremity: full ROM; no edema Left lower extremity: full ROM; no edema Psych Mental Status: mental status grossly normal Speech and movement: Normal speech and movement present Affect: normal affect Attitude: cooperative Thought process: Normal thought process present Office Procedures Flu Questionnaire Does the patient have a severe egg allergy?: No Does the patient have severe life threatening allergies?: No Does the patient have a fever or illness today?: No Has the patient ever had Guillain-[place] Syndrome?: No Has the patient ever had any past reaction to a flu shot?: No Results AMB Hemoglobin A1c AMB Hemoglobin A1c 7.9 % Last Edit by LEELEE Acosta on 12/29/23 16:25 Immunizations Fluarix Triv [id number] (PF) 45 mcg (15 mcg x 3)/0.5 mL IM syringe Performing Provider: Ashok Hurtado PA-C Performing Location: [facility] [place] [facility] Administered by: LEELEE Acosta on 12/29/23 16:22 Dose Route Admin Location Dispensed Lot Number Expiration Date NDC Chief Service Observer 0.5 mL IM Left Deltoid 0.5 mL [id number] 08/23/24 [id number] [employer] VIS Given Date VIS Provided VIS Publication Date 12/29/23 Single Vaccine 20 Eligibility Eligibility Date Funding Source Not [facility] Eligible 12/29/23 Private Results Reviewed Results Reviewed: Laboratory Last Values Hgb A1c (Clinic) 7.9 % (4.0-6.0) H 12/29/23 16:24 Coding Level of Care Code Est Pt Level 4 (15082) Diagnoses Type 1 diabetes mellitus with nephropathy E10.21 Hyperlipidemia LDL goal <100 E78.5 Essential hypertension I10 Chronic kidney disease, stage 4 (severe) N18.4 Additional Codes CAMILO-7 Assessment Billing - CAMILO-7 Assessment Tool: CAMILO-7 Assessment 29207 ([id number]) Assessment & Plan Assessment & Plan (1) Type 1 diabetes mellitus with nephropathy: Code(s): E10.21 - Type 1 diabetes mellitus with diabetic nephropathy Category: Medical Plan: Patient followed by [place] [facility]. Continues with an insulin pump and has decent control of his blood sugars. Most recent A1c slightly he was 7.3. (2) Hyperlipidemia LDL goal <100: Code(s): E78.5 - Hyperlipidemia, unspecified Category: Medical Plan: Most recent lipid panel showing excellent control of his total cholesterol and LDL. Goal LDL to remain below 100. He will continue on current dose of rosuvastatin 20 mg. (3) Essential hypertension: Code(s): I10 - Essential (primary) hypertension Category: Medical Plan: Patient's blood pressure slightly elevated today in office though when recheck much improved. Will continue on lisinopril 2.5 mg. Goal blood pressures to remain below 140/90 (4) Chronic kidney disease, stage 4 (severe): Code(s): N18.4 - Chronic kidney disease, stage 4 (severe) Category: Medical Plan: Patient continues to follow Nephrology. Continues on PEPE inhibitor. Will continue to avoid any nephrotoxins. He will be refer to kidney transplant team. Orders: Orders AMB Hemoglobin A1c 12/29/23 E10.21 - Type 1 diabetes mellitus with diabetic nephropathy Influenza [id number] Immunization 12/29/23 Z23 - Encounter for immunization Comprehensive [place]. Panel Fast 12/29/23 E10.22 - Type 1 diabetes mellitus with diabetic chronic kidney disease, N18.4 - Chronic kidney disease, stage 4 (severe) Lipid Panel 12/29/23 E78.5 - Hyperlipidemia, unspecified Complete Blood Count no Diff 12/29/23 I10 - Essential (primary) hypertension Microalbumin, Random (w Creat) 12/29/23 E10.22 - Type 1 diabetes mellitus with diabetic chronic kidney disease, N18.4 - Chronic kidney disease, stage 4 (severe) Referrals Ophthalmology Referral E10.22 - Type 1 diabetes mellitus with diabetic chronic kidney disease, N18.4 - Chronic kidney disease, stage 4 (severe) Medications: Refilled rosuvastatin 20 mg PO DAILY 90 tabs 1RF E78.5 - Hyperlipidemia, unspecified ezetimibe (Zetia) 10 mg PO DAILY 90 tabs 1RF E78.5 - Hyperlipidemia, unspecified Patient Instructions: Goal: Blood pressure to remain below 140/90, LDL to remain below 100 Barriers: Adherence to physical activity and healthy eating habits
[2023-12-29 16:04] VITALS: BP 150/72; PULSE 60; O2SAT 98; BMI 32.9
[2023-12-29 16:29] VITALS: BP 130/75
== END 2023-12-29 16:33 | disposition home or self-care (01) ==
LOC: HO.HMCH 15:30
PROVIDERS: Visit Provider Physician Assistant
DX: I12.9 Hypertensive chronic kidney disease with stage 1 through stage 4 chronic kidney disease, or unspecified chronic kidney disease (principal); E10.21 Type 1 diabetes mellitus with diabetic nephropathy; N18.4 Chronic kidney disease, stage 4 (severe); E78.5 Hyperlipidemia, unspecified

== ENCOUNTER → 2023-12-29 15:29 | Outpatient (BNVA) | payer OTHER, SELFPAY | PROVIDERS: Visit Provider Physician Assistant | DX: Z23 Encounter for immunization (principal); E10.21 Type 1 diabetes mellitus with diabetic nephropathy; E78.5 Hyperlipidemia, unspecified; I12.9 Hypertensive chronic kidney disease with stage 1 through stage 4 chronic kidney disease, or unspecified chronic kidney disease; E10.22 Type 1 diabetes mellitus with diabetic chronic kidney disease; N18.4 Chronic kidney disease, stage 4 (severe) | CPT/HCPCS: 83036; 90471; 90656; 96127; 99212 ==

== ENCOUNTER 2024-01-07 15:06 | Outpatient (AMB) | payer OTHER, SELFPAY ==
--- NOTE | 2024-01-07 14:46 | A.OFFVIS_ITS ---
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 Most recent A1C was 12/29/23 7.9%. He is on a Tandem insulin pump. Hemoglobin A1c 10.7 % 04/14/18 Microalb/Creat Ratio 1429.7 ug/mg cr (<30) H 07/04/23 Cholesterol 185 mg/dL (<200) 07/04/23 HDL Cholesterol 52 mg/dL (>40) 07/04/23 Triglycerides 91 mg/dL (<150) 07/04/23 Creatinine 3.53 mg/dL (0.5-1.4) H 09/17/23 Blood Urea Nitrogen 47 mg/dL (9-16) H 09/17/23 Sodium 140 mmol/L (135-145) 09/17/23 Potassium 5.3 mmol/L (3.3-5.1) H 09/17/23 Chloride 110 mmol/L (96-108) H 09/17/23 Carbon Dioxide 21 mmol/L (22-29) L 09/17/23 Calcium 9.4 mg/dL (8.4-10.2) 07/04/23 AST 15 U/L (5-37) 07/04/23 ALT 15 U/L (0-40) 07/04/23 Total Protein 7.9 g/dL (6.5-8.0) 07/04/23 Albumin 4.1 g/dL (3.5-5.0) 07/04/23 ?Basal rate(s) (units/hour) : 12 AM? to 3 AM? 1.1 units / hr 3 AM? to 7 AM? 1.1 units / hr 7 AM? to 4 PM? 0.9 units / hr 4 PM to 12 AM? 1.2 units / hr Bolus setting Insulin Carbohydrate Ratio (s) 12 AM? to 2 PM? 1:7 2PM to 4 PM 1:6.5 4 PM to 12 AM 1:6.3 Correction Factor / Sensitivity Factor 12 AM? to 7 AM? 1:40 7 AM? to 2 PM? 1:48 2 PM to 4 PM 1:45 4 PM to 12 AM 1:33 Active Insulin Time: Control IQ 4.0 hours Target(s): Control IQ target 2 AM? to 12 AM?110 mg/dL Control IQ off target 12 AM? to 12 AM? 120 mg/dL Dexcom average glucose: 170 14 day continuous glucose monitor report reviewed Glucose Managment indicator 7.4 % Days with CGM data 100 % TIme in ranges: Fourteen % very high (above 250) 18 % high ?(181-250) 67 % in range ?(70-180] 0.6 % low (69-55) 0 % ?very low (below 54) 70 Standard Deviation Interpretation most days readings in good range he had several days where he did not enter carbs until after his sugars crystal which contributed to higher numbers Micro and macrovascular complications: + nephropathy, + retinopathy Has appt jan for opth Followed by Dr. Justice. Kidney function has been stable. If it deteriorates Dr. Justice will refer patient for kidney/pancreas transplant. 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 Has referral to [facility] eye exam over 1 yr ago ou-background diabetic retinopathy [facility] Medical History (Updated 12/30/23 @ 07:45 by Ashok Hurtado PA-C) Type 1 diabetes mellitus with nephropathy Proteinuria 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 Maternal Grandfather Diabetes mellitus Social History Household Members: Spouse Housing: Apartment Alcohol intake: current Alcohol intake frequency: holidays/special occasions only Patient Tobacco Use Status: Former Tobacco user Years Smoked: quit 2013 e-Cigarette/Vaping Use: Never Used Second Hand Smoke Exposure: No service: No Current occupational status: employed Current occupation: [employer] Cognitive needs: No Hearing needs: No Vision needs: No Physical Exam Vital Signs: Last Vital Signs Pulse 65 01/07/24 15:18 BP 132/80 01/07/24 15:18 BMI result Body Mass Index 33.4 Const Other: Absence of Cushingoid features. Absence of acromegalic features. Neck exam reveals nl size thyroid about 15 gms. No thyroid nodules palpable. Heart S1 S2, Reg R/R. No M/R G. Skin exam reveals absence of vitiligo or acanthosis nigricans. Results Reviewed Results Reviewed: Laboratory Last Values Glucose (Clinic) 128 mg/dL (60-115) H 01/07/24 15:20 Assessment & Plan Assessment & Plan (1) Type 1 diabetes mellitus with chronic kidney disease: Code(s): E10.22 - Type 1 diabetes mellitus with diabetic chronic kidney disease Category: Medical Qualifiers: Chronic kidney disease stage: stage 4 (severe) Qualified Code(s): E10.22 - Type 1 diabetes mellitus with diabetic chronic kidney disease; N18.4 - Chronic kidney disease, stage 4 (severe) Plan: 38-year-old type 1 diabetic on a tandem insulin pump with most recent A1c of 7.9% with stage IV CKD followed by Nephrology and retinopathy. Patient was advised to consistently enter carbohydrates before he eats The patient had an opportunity to ask questions regarding treatment plan. The patient expressed understanding and agreement with the above treatment plan. The patient is aware they should contact our office by phone for worsening glucose readings or for any low blood sugars which may warrant a change in diabetes medication. Compliance is encouraged with medications and any followup testing/consults which may have been ordered. Orders: Orders AMB Hemoglobin A1c 01/07/24 E10.22 - Type 1 diabetes mellitus with diabetic chronic kidney disease, N18.4 - Chronic kidney disease, stage 4 (severe) Patient Instructions: The patient was counseled to achieve a target A1C of 7% (154 avg). Fasting blood sugars should be 90-130 in the morning and less than 180 two hours after meals. Reviewed the relationship between poor diabetic control and the development of complications. Symptoms of DKA (diabetic ketoacidosis): early: frequent urination, dry mouth, fatigue, feeling ill, severe symptoms: ketones in the urine, abdominal pain, nausea, vomiting and weakness. It is important to hydrate with sugar free liquids every 15-30 minutes and bring the sugars down to normal levels. If you are moderate or severe with ketones or unable to bring glucose to less than 200, go to the emergency room. Troubleshooting after starting new pod or inserting new insulin set: Occlusion, adhesive tape sensitivity, redness Check BG 2 hours after site change Safety information: Importance of a backup plan, for manual injections, proper prescriptions and emergency supplies ketone strips, and rules for testing for ketones Foot care Coding Level of Care Code Est Pt Level 4 (24809) Complex EM visit Add On G2211 Diagnoses Type 1 diabetes mellitus with stage 4 chronic kidney disease E10.22; N18.4 Chronic kidney disease stage: stage 4 (severe) Time Spent (min) 35 Comment Reviewing labs/provider notes, glucose sensor/pump reports, face to face, chart doc
[2024-01-07 15:18] VITALS: BP 132/80; PULSE 65; BMI 33.4
[2024-01-07 15:26] LABS: Glucose, Whole Blood 128 mg/dL (60-115)
== END 2024-01-07 15:50 | disposition home or self-care (01) ==
PROVIDERS: Visit Provider Nurse Practitioner Adult Health
DX: E10.22 Type 1 diabetes mellitus with diabetic chronic kidney disease (principal); N18.4 Chronic kidney disease, stage 4 (severe)
CPT/HCPCS: 99214; G2211

== ENCOUNTER → 2024-01-07 15:06 | Outpatient (BNVA) | payer OTHER, SELFPAY | PROVIDERS: Visit Provider Nurse Practitioner Adult Health | DX: E10.22 Type 1 diabetes mellitus with diabetic chronic kidney disease (principal); R80.9 Proteinuria, unspecified; N18.4 Chronic kidney disease, stage 4 (severe); Z96.41 Presence of insulin pump (external) (internal); Z46.81 Encounter for fitting and adjustment of insulin pump | CPT/HCPCS: 82947; 99212 ==

== ENCOUNTER 2024-02-26 16:17 | Outpatient (REF) | payer OTHER, SELFPAY ==
[2024-02-26 17:51] LABS: Anion Gap 15 (12-20); Blood Urea Nitrogen 53 mg/dL (9-16); Carbon Dioxide 24 mmol/L (22-29); Chloride 107 mmol/L (96-108); Estimated Glomerular Filt Rate 17; Potassium 4.6 mmol/L (3.3-5.1); Sodium 141 mmol/L (135-145)
== END 2024-02-26 16:18 | disposition home or self-care (01) ==
LOC: HO.LAB 16:17
PROVIDERS: PCP Physician Assistant; Visit Provider Internal Medicine Nephrology
DX: N18.4 Chronic kidney disease, stage 4 (severe) (principal); I10 Essential (primary) hypertension
CPT/HCPCS: 36415; 80051; 82565; 84520

== ENCOUNTER 2024-02-27 15:23 | Outpatient (AMB) | payer OTHER, SELFPAY ==
--- NOTE | 2024-02-27 15:25 | HO.NEPHOV ---
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 His blood sugar controls are fair. He has type 1 diabetes but denies retinopathy or neuropathy. He does not have any edema. His blood pressure has been at goal. He denies uremic symptoms. He does not have any chest pain, shortness of breath, proximal nocturnal dyspnea, orthopnea, nausea, vomiting, diarrhea. He claims to be compliant with his medications. He remains employed and is active [facility] Medical History (Updated 12/30/23 @ 07:45 by Ashok Hurtado PA-C) Type 1 diabetes mellitus with nephropathy Proteinuria 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 Cognitive needs: No Hearing needs: No Vision needs: No Review of Systems Const All systems reviewed & are unremarkable except as noted in HPI and below Physical Exam Vital Signs: Last Vital Signs Pulse 70 02/27/24 15:26 BP 132/80 02/27/24 15:26 Pulse Ox 97 02/27/24 15:26 Oxygen Delivery Method Room Air 02/27/24 15:26 BMI result Body Mass Index 34.6 Const General: comfortable and no acute distress Orientation/consciousness: patient oriented x3 HEENT Head: Yes normocephalic Mouth: Normal oral and palatal mucosa present Eyes EOM: EOMs intact bilaterally Neck Neck: Yes supple Resp Auscultation: clear to auscultation bilaterally Cardio Jugular venous distension: no JVD Rate: regular rate GI Palpation (GI): Soft to palpation Auscultation: normal bowel sounds General: Yes no CVA tenderness Back/Spine/Pelvis Back: no CVA tenderness Skin General skin exam: no rashes or lesions noted Neuro General: patient oriented x3 and moves all extremities Extrem General: Yes no pedal edema Results Reviewed Nephrology Results: Sodium 141 mmol/L (135-145) 02/26/24 Potassium 4.6 mmol/L (3.3-5.1) 02/26/24 Chloride 107 mmol/L (96-108) 02/26/24 Carbon Dioxide 24 mmol/L (22-29) 02/26/24 BUN 53 mg/dL (9-16) H 02/26/24 Creatinine 3.99 mg/dL (0.5-1.4) H 02/26/24 Assessment & Plan Assessment & Plan (1) Chronic kidney disease, stage 4 (severe): Code(s): N18.4 - Chronic kidney disease, stage 4 (severe) Category: Medical (2) Type 1 diabetes mellitus with nephropathy: Code(s): E10.21 - Type 1 diabetes mellitus with diabetic nephropathy Category: Medical (3) Essential hypertension: Code(s): I10 - Essential (primary) hypertension Category: Medical Plan Jurgen has advanced chronic kidney disease. His renal functions had been fairly stable. His blood pressure is at goal. He is tolerating low-dose of PEPE-inhibitor. He has no uremic symptoms. I plan to refer him for a kidney and pancreas transplant, may be after next visit after a 24 hour urine for cr clearance. He should avoid nonsteroidal anti-inflammatories and maintain good hydration. I did not make any medication changes today but rather discussed about his CKD and its management strategies, including renal transplant. He has a sister who is willing to consider donating a kidney to him. Answered all questions Orders: Orders Creatinine 3 Months N18.4 - Chronic kidney disease, stage 4 (severe) Blood Urea Nitrogen 3 Months N18.4 - Chronic kidney disease, stage 4 (severe) Electrolytes 3 Months N18.4 - Chronic kidney disease, stage 4 (severe) Coding Level of Care Code Est Pt Level 4 (67010) Diagnoses Chronic kidney disease, stage 4 (severe) N18.4 Type 1 diabetes mellitus with nephropathy E10.21 Essential hypertension I10
[2024-02-27 15:26] VITALS: BP 132/80; PULSE 70; O2SAT 97; BMI 34.6
== END 2024-02-27 15:39 | disposition home or self-care (01) ==
PROVIDERS: Visit Provider Internal Medicine Nephrology
DX: I12.9 Hypertensive chronic kidney disease with stage 1 through stage 4 chronic kidney disease, or unspecified chronic kidney disease (principal); E10.22 Type 1 diabetes mellitus with diabetic chronic kidney disease; N18.4 Chronic kidney disease, stage 4 (severe)
CPT/HCPCS: 99214

== ENCOUNTER → 2024-02-27 15:23 | Outpatient (BNVA) | payer OTHER, SELFPAY | PROVIDERS: Visit Provider Internal Medicine Nephrology | DX: E10.22 Type 1 diabetes mellitus with diabetic chronic kidney disease (principal); I12.9 Hypertensive chronic kidney disease with stage 1 through stage 4 chronic kidney disease, or unspecified chronic kidney disease; N18.4 Chronic kidney disease, stage 4 (severe); E10.21 Type 1 diabetes mellitus with diabetic nephropathy | CPT/HCPCS: 99212 ==

== ENCOUNTER 2024-04-07 15:18 | Outpatient (AMB) | payer OTHER, SELFPAY ==
--- NOTE | 2024-04-06 16:16 | A.OFFVIS_ITS ---
Vital Signs 04/07/24 15:31 Height 5 ft 5 in Weight 211 lb 10.3 oz BMI 35.2 BP 138/80 Blood Pressure Location Rt brachial Position Sitting Pulse 68 Pulse Source Pulse Oximeter Intake Visit Reasons: DM Intake Note: Patient presents today for a follow-up on Type 1 Diabetes Mellitus: Last Diabetic Eye exam: DUE Last Podiatry Exam: Does not see a Detonator Maker Most recent HbA1c: 6.7%, 04/07/2024 Random Glucose- 123 mg/dL, Today Manager Technical Required: No Accompanied by: Self / Same As Patient Allergies aspirin [ASA] Allergy (Unknown, Verified 04/07/24 15:28) ANAPHYLAXIS benazepril Allergy (Unknown, Verified 04/07/24 15:28) hyperkalemia Medication List - Last Reconciled 04/07/24 by Eliana Carranza NP acetone (urine) test (Ketone Urine Test strips) As directed for glucose over 250, illness, nausea/vomiting tid prn ezetimibe (Zetia) 10 mg PO DAILY glucagon 3 mg/actuation (Baqsimi) 3 mg intranasal .prn PRN 30 days MDD 6 mg infusion set for insulin pump As directed insulin aspart U-100 (Novolog U-100 Insulin aspart) 125 units (1.25 mL) continuous subcutaneous infusion DAILY 30 days insulin glargine (Lantus Solostar U-100 Insulin) 40 units (0.4 mL) subcut DAILY 30 days [insulin pump supplies As directed] insulin syringe-needle U-100 (BD Veo Insulin Syringe Ultra-Fine) As directed lisinopril 2.5 mg PO DAILY 90 days metoprolol succinate ER 100 mg PO DAILY nifedipine ER 60 mg PO DAILY pen needle, diabetic (BD Ultra-Fine Kamala Pen Needle) As directed one daily rosuvastatin 20 mg PO DAILY sodium polystyrene sulf-sorbtl 15-20 gram/60 mL 120 mL PO .three times weekly urine glucose-ketones test (Keto-Diastix strips) As directed glucose over 250, illness, nausea,vomiting HPI Comments Details: Patient is 38 yo male with DM type 1 diagnosed at the age of 13 who presents for continued management of diabetes.He was last seen 01/07/24. A1C 04/07/24 6.7% down from 12/29/23 7.9%. He is on a Tandem insulin pump. Hemoglobin A1c 10.7 % 04/14/18 Microalb/Creat Ratio 1429.7 ug/mg cr (<30) H 07/04/23 Cholesterol 185 mg/dL (<200) 07/04/23 HDL Cholesterol 52 mg/dL (>40) 07/04/23 Triglycerides 91 mg/dL (<150) 07/04/23 Creatinine 3.53 mg/dL (0.5-1.4) H 09/17/23 Blood Urea Nitrogen 47 mg/dL (9-16) H 09/17/23 Sodium 140 mmol/L (135-145) 09/17/23 Potassium 5.3 mmol/L (3.3-5.1) H 09/17/23 Chloride 110 mmol/L (96-108) H 09/17/23 Carbon Dioxide 21 mmol/L (22-29) L 09/17/23 Calcium 9.4 mg/dL (8.4-10.2) 07/04/23 AST 15 U/L (5-37) 07/04/23 ALT 15 U/L (0-40) 07/04/23 Total Protein 7.9 g/dL (6.5-8.0) 07/04/23 Albumin 4.1 g/dL (3.5-5.0) 07/04/23 Dexcom average glucose: 177 14 day continuous glucose monitor report reviewed Glucose Managment indicator 7.5 % Days with CGM data 94.6 % TIme in ranges: 15 % very high (above 250) 19 % high ?(181-250) 65 % in range ?(70-180] 1 % low (69-55) 0 % ?very low (below 54) [ ] Standard Deviation Interpretation well-controlled with the exception of some increases after lunch which he attributes to going for Japanese food several times this month Total daily dose of insulin 92.7 units Basal 36% 33.8 bolus 64% 58.9 ?Basal rate(s) (units/hour) : 12 AM? to 3 AM? 1.1 units / hr 3 AM? to 7 AM? 1.1 units / hr 7 AM? to 4 PM? 0.9 units / hr 4 PM to 12 AM? 1.2 units / hr Bolus setting Insulin Carbohydrate Ratio (s) 12 AM? to 2 PM? 1:7 2PM to 4 PM 1:6.5 4 PM to 12 AM 1:6.3 Correction Factor / Sensitivity Factor 12 AM? to 7 AM? 1:40 7 AM? to 2 PM? 1:48 2 PM to 4 PM 1:45 4 PM to 12 AM 1:33 Active Insulin Time: Control IQ 4.0 hours Target(s): Control IQ target 2 AM? to 12 AM?110 mg/dL Control IQ off target 12 AM? to 12 AM? 120 mg/dL Micro and macrovascular complications: + nephropathy, + retinopathy Has retinopathy: seen in January Followed by Dr. Justice. Kidney function has been stable. If it deteriorates Dr. Justice will refer patient for kidney/pancreas transplant. 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 Has referral to [facility] eye exam over 1 yr ago ou-background diabetic retinopathy [facility] Medical History Type 1 diabetes mellitus with nephropathy Proteinuria 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 Absence of acromegalic features. Neck exam reveals nl size thyroid about 15 gms. No thyroid nodules palpable. Heart S1 S2, Reg R/R. No M/R G. Skin exam reveals absence of vitiligo or acanthosis nigricans. Visual exam of foot performed. No ulcerations or open lesions. No inter digit maceration or fissuring. No onychomycosis, no callouses. Sensation intact to monofilament exam. Vibratory sensation is normal with 128 Hz tuning fork. Office Procedures Glucose Monitoring Details Details: see [facility] [id number] - Glucose monitoring, continuous-physician I&R Procedure code (CPT) selection complete Results Reviewed Results Reviewed: Laboratory Last Values Glucose (Clinic) 123 mg/dL (60-115) H 04/07/24 15:35 Assessment & Plan Assessment & Plan (1) Type 1 diabetes mellitus with chronic kidney disease: Code(s): E10.22 - Type 1 diabetes mellitus with diabetic chronic kidney disease Category: Medical Qualifiers: Chronic kidney disease stage: stage 4 (severe) Qualified Code(s): E10.22 - Type 1 diabetes mellitus with diabetic chronic kidney disease; N18.4 - Chronic kidney disease, stage 4 (severe) Plan: 38-year-old type 1 diabetic with nephropathy followed by Nephrology and retinopathy with an A1c of 6.7% on an insulin pump. Numbers in excellent control with the exception of the few times he went out to dinner for Japanese this month. The patient had an opportunity to ask questions regarding treatment plan. The patient expressed understanding and agreement with the above treatment plan. The patient is aware they should contact our office by phone for worsening glucose readings or for any low blood sugars which may warrant a change in diabetes medication. Compliance is encouraged with medications and any followup testing/consults which may have been ordered. Orders: Orders AMB Glucose Monitoring Today E10.22 - Type 1 diabetes mellitus with diabetic chronic kidney disease, N18.4 - Chronic kidney disease, stage 4 (severe) Medications: Refilled acetone (urine) test (Ketone Urine Test strips) As directed for glucose over 250, illness, nausea/vomiting tid prn 25 ea 1RF Patient Instructions: Take 15 carb carbohydrate grams to treat a low sugar (3-4 glucose tablets, half a glass of juice or 15 carbohydrate grams of soft candy such as gummie snacks). Recheck your sugar in 15 minutes and re-treat again with 15 carbohydrate grams if low or still with symptoms. Do not drive a car or operate machinery if you do not know what your blood sugar is, if it is low or in excess of 300. Symptoms of DKA (diabetic ketoacidosis): early: frequent urination, dry mouth, fatigue, feeling ill, severe symptoms: ketones in the urine, abdominal pain, nausea, vomiting and weakness. It is important to hydrate with sugar free liquids every 15-30 minutes and bring the sugars down to normal levels. If you are moderate or severe with ketones or unable to bring glucose to less than 200, go to the emergency room. Troubleshooting after starting new pod or inserting new insulin set: Occlusion, adhesive tape sensitivity, redness Check BG 2 hours after site change Safety information: Importance of a backup plan, for manual injections, proper prescriptions and emergency supplies ketone strips, and rules for testing for ketones The patient was counseled to achieve a target A1C of 7% (154 avg). Fasting blood sugars should be 90-130 in the morning and less than 180 two hours after meals. Reviewed the relationship between poor diabetic control and the development of complications. Check your feet daily looking for any signs of infection, drainage, redness, ulceration and seek medical attention if this occurs. Break in shoes gradually and do not wear open-toed shoes or walk stocking footed or barefooted. Coding Level of Care Code Est Pt Level 4 (54842) Complex EM visit Add On G2211 Diagnoses Type 1 diabetes mellitus with stage 4 chronic kidney disease E10.22; N18.4 Chronic kidney disease stage: stage 4 (severe) CPT Codes Details - CPT: 05242 - Glucose monitoring, continuous-physician I&R ([id number]) Time Spent (min) 30 Comment Reviewing labs/provider notes, glucose sensor/pump reports, face to face, chart doc
[2024-04-07 15:31] VITALS: BP 138/80; PULSE 68; BMI 35.2
[2024-04-07 15:39] LABS: Glucose, Whole Blood 123 mg/dL (60-115)
--- OUTSIDE RECORDS SUMMARY | 2024-04-07 16:14 | XMS_ITS | Clinical Summary ---
Author Organization [facility] Address [address] [facility] [address] [place] [address] Phone Care Team Providers Care Regional Sales Engineer Name Role Phone Ashok Hurtado Primary Care Provider [phone] Allergies Active Allergy Reactions Criticality Noted Date Comments Aspirin Other (see comments) 07/20/2020 Medications loratadine (CLARITIN) 10 MG tablet Take 10 mg by mouth 1 (one) time each day Active rosuvastatin (CRESTOR) 20 MG tablet Take 1 tablet (20 mg total) by mouth at bed time 30 tablet 1 11/02/2020 Active lisinopril 2.5 MG tablet Take 1 tablet (2.5 mg total) by mouth 1 (one) time each day 90 tablet 3 11/22/2021 Active metoprolol succinate XL (TOPROL-XL) 100 MG 24 hr tablet Take 1 tablet (100 mg total) by mouth 1 (one) time each day 90 tablet 3 11/22/2021 Active Insulin Aspart 100 UNIT/ML solution 08/05/2022 Active NIFEdipine XL (PROCARDIA XL) 60 MG 24 hr tablet Take 1 tablet (60 mg total) by mouth 1 (one) time each day Do not crush, chew, or split. 90 tablet 09/04/2022 Active SPS 15 GM/60ML suspension Take 60 mL (15 g total) by mouth 3 (three) times a week 720 mL 11/11/2022 Active Dapagliflozin Propanediol (Farxiga) 5 MG tablet Take 2.5 mg by mouth 1 (one) time each day in the morning 30 tablet 3 11/11/2022 Active Active Problems Problem Noted Date Diagnosed Date Type 2 diabetes mellitus with diabetic nephropat hy 01/22/2021 Hyperkalemia 01/22/2021 Stage 3b chronic kidney disease 07/20/2020 Hypertensive renal disease 07/20/2020 Proteinuria 07/20/2020 Hypertension 07/20/2020 Family History Relation Status Comments Father Mother Alive Social History Tobacco Use Types Packs/Day Years Used Date Smoking Tobacco: Never Smokeless Tobacco: Never Tobacco Cessation:Counseling Given: Not Answered Alcohol Use Standard Drinks/Week Comments Yes 0 (1 standard drink = 0.6 oz pur e alcohol) Sex and Gender Information Value Date Recorded Sex Assigned at Not on file Legal Sex Male 4:54 PM EST Gender Identity Not on file Sexual Orientation Not on file Last Filed Vital Signs Vital Sign Reading Time Taken Comments Blood Pressure 140/90 11/11/2022 4:28 PM EDT Pulse 62 11/11/2022 4:28 PM EDT Temperature - - Respiratory Rate - - Oxygen Saturation 99% 02/21/2022 3:35 PM EST Inhaled Oxygen Concentration - - Weight 91.9 kg (202 lb 9.6 oz) 11/11/2022 4:28 P M EDT Height - - Body Mass Index - - Plan of Treatment Health Maintenance Due Date Last Done Comments Pneumococcal Vaccine: Pediat rics (0 to 5 Years) and At-Risk Patients (6 to 64 Years) (1 of 2 - PCV) 05/21/1991 Hepatitis B Vaccine (1 of 3 - 19+ 3-dose series) 05/20 Diabetes: Hemoglobin A1C 11/02/2020 Diabetes: Ophthalmology Exam 11/02/2020 Diabetes: Pedal Pulse Checked 11/02/2020 Diabetes: Sensory Foot Exam 11/02/2020 Diabetes: Visual Foot Exam 11/02/2020 Influenza Vaccine (#1) 2023 Insurance [employer] [facility] Care Teams Regional Sales Engineer Relationship Specialty Start Date End Date Ashok Hurtado PA [address] [place] [address], [address] [place] [address] PCP - General Physician Translator/Interpreter 04/09/21
== END 2024-04-07 15:56 | disposition home or self-care (01) ==
PROVIDERS: Visit Provider Nurse Practitioner Adult Health
DX: E10.22 Type 1 diabetes mellitus with diabetic chronic kidney disease (principal); N18.4 Chronic kidney disease, stage 4 (severe)
CPT/HCPCS: 95251; 99214; G2211

== ENCOUNTER → 2024-04-07 15:18 | Outpatient (BNVA) | payer OTHER, SELFPAY | PROVIDERS: Visit Provider Nurse Practitioner Adult Health | DX: Z46.81 Encounter for fitting and adjustment of insulin pump (principal); E10.22 Type 1 diabetes mellitus with diabetic chronic kidney disease; N18.4 Chronic kidney disease, stage 4 (severe); Z79.4 Long term (current) use of insulin | CPT/HCPCS: 82947; 99212 ==

== ENCOUNTER 2024-05-03 12:39 | Outpatient (AMB) | payer OTHER, SELFPAY ==
--- NOTE | 2024-05-03 13:24 | A.OFFVIS_ITS ---
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: No Accompanied by: Self / Same As Patient Allergies aspirin [ASA] Allergy (Unknown, Verified 04/07/24 15:28) ANAPHYLAXIS benazepril Allergy (Unknown, Verified 04/07/24 15:) hyperkalemia HPI Comprehensive Diabetes Asmnt Most Recent Diabetes Results: Hemoglobin A1c 10.7 % 04/14/18 Microalb/Creat Ratio 1429.7 ug/mg cr (<30) H 07/04/23 Cholesterol 185 mg/dL (<200) 07/04/23 HDL Cholesterol 52 mg/dL (>40) 07/04/23 Triglycerides 91 mg/dL (<150) 07/04/23 Creatinine 3.99 mg/dL (0.5-1.4) H 02/26/24 Blood Urea Nitrogen 53 mg/dL (9-16) H 02/26/24 Sodium 141 mmol/L (135-145) 02/26/24 Potassium 4.6 mmol/L (3.3-5.1) 02/26/24 Chloride 107 mmol/L (96-108) 02/26/24 Carbon Dioxide 24 mmol/L (22-29) 02/26/24 Calcium 9.4 mg/dL (8.4-10.2) 07/04/23 AST 15 U/L (5-37) 07/04/23 ALT 15 U/L (0-40) 07/04/23 Total Protein 7.9 g/dL (6.5-8.0) 07/04/23 Albumin 4.1 g/dL (3.5-5.0) 07/04/23 [facility] Medical History Type 1 diabetes mellitus with nephropathy Proteinuria 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: Code(s): E10.22 - Type 1 diabetes mellitus with diabetic chronic kidney disease Qualifiers: Chronic kidney disease stage: stage 4 (severe) Qualified Code(s): E10.22 - Type 1 diabetes mellitus with diabetic chronic kidney disease; N18.4 - Chronic kidney disease, stage 4 (severe) Plan: Patient presents for pump training for VickiSurya with Control IQ and Dexcom G6 The following topics were reviewed today: - Reviewed how to turn on Control IQ, how to use Exercise Activity and Sleep Schedules - Current pump out of warranty - Sensor setting (if applicable) ??? High Alert: 300 mg/dl ??? Low Alert: 70 mg/dl Patient above target 33% Patient at target 66% Patient below target 1% Average glucose 162 mg/dL for the past 14 days Last a1c on 04/06/24 6.7% Patient reports he has started going to the gym 3-4 times weekly, patient has several episodes of hypoglycemia we reviewed how to treat hypoglycemia with rule of 15s, instructed patient to carry 15 g of fast acting carbohydrate such as 4 glucose tabs, snack size bag of skittles Patient reports he got an e-mail from Vicki pryor that his current pump is out of warranty. A suggested to patient to contact Vicki pryor if he wants to get replacement pump, this will also give him updated features such as the ability to bolus from smart phone, to choose between Dexcom G6 in G7 sensors, and upgrades to activity features Patient's settings verified by Diabetes Education nurse no changes made to patient's insulin pump settings at today's visit ?Basal rate(s) (units/hour) : 12 AM? to 3 AM? 1.1 units / hr 3 AM? to 7 AM? 1.1 units / hr 7 AM? to 4 PM? 0.9 units / hr 4 PM to 12 AM? 1.2 units / hr Bolus setting Insulin Carbohydrate Ratio (s) 12 AM? to 2 PM? 1:7 2PM to 4 PM 1:6.5 4 PM to 12 AM 1:6.3 Correction Factor / Sensitivity Factor 12 AM? to 7 AM? 1:40 7 AM? to 2 PM? 1:48 2 PM to 4 PM 1:45 4 PM to 12 AM 1:33 Active Insulin Time: Control IQ 5 hours Target(s): Control IQ target 2 AM? to 12 AM?110 mg/dL Control IQ off target 12 AM? to 12 AM? 120 mg/dL Patient Instructions: If you receive new pump contact office for appointment to transfer settings into new pump Contact hematology nurse educator questions or concerns Coding Level of Care Code Est Pt Level 1 (59731) Diagnoses Type 1 diabetes mellitus with stage 4 chronic kidney disease E10.22; N18.4 Chronic kidney disease stage: stage 4 (severe)
--- OUTSIDE RECORDS SUMMARY | 2024-05-03 14:08 | XMS_ITS | Clinical Summary ---
Author Organization [facility] Address [address] [facility] [address] [place] [address] Phone Care Team Providers Care Outside Deliverer Name Role Phone Ashok Hurtado Primary Care Provider [phone] Allergies Active Allergy Reactions Criticality Noted Date [...] Exam 11/02/2020 Influenza Vaccine (#1) 2023 Insurance * Guarantor: Jurgen Verde Account Type Relation to Patient Date of Phone Billing Address Personal/Family Self 1985 [address] [facility] [address] [place] [address] [employer] Care Teams Outside Deliverer Relationship Specialty Start Date End Date Ashok Hurtado PA [address] [place] [address], [address] [place] [address] PCP - General Physician Radiator Core Tester 04/09/21
== END 2024-05-03 13:27 | disposition home or self-care (01) ==
PROVIDERS: Visit Provider Registered Nurse Diabetes Educator
DX: E10.22 Type 1 diabetes mellitus with diabetic chronic kidney disease (principal); N18.4 Chronic kidney disease, stage 4 (severe)

== ENCOUNTER → 2024-05-03 12:39 | Outpatient (BNVA) | payer OTHER, SELFPAY | PROVIDERS: Visit Provider Registered Nurse Diabetes Educator | DX: E10.22 Type 1 diabetes mellitus with diabetic chronic kidney disease (principal); N18.4 Chronic kidney disease, stage 4 (severe) | CPT/HCPCS: 99211 ==

== ENCOUNTER 2024-05-26 16:20 | Outpatient (REF) | payer OTHER, SELFPAY ==
[2024-05-26 17:30] LABS: Anion Gap 12 (12-20); Blood Urea Nitrogen 53 mg/dL (9-16); Carbon Dioxide 22 mmol/L (22-29); Chloride 109 mmol/L (96-108); Estimated Glomerular Filt Rate 18; Potassium 4.6 mmol/L (3.3-5.1); Sodium 138 mmol/L (135-145)
--- OUTSIDE RECORDS SUMMARY | 2024-05-26 18:04 | XMS_ITS | Clinical Summary ---
Author Organization [facility] Address [address] [facility] [address] [place] [address] Phone Care Team Providers Care Kitchenhand Name Role Phone Ashok Hurtado Primary Care Provider [phone] Allergies Active Allergy Reactions Criticality Noted Date [...] HEALTH MEDICAID [employer] Care Teams Kitchenhand Relationship Specialty Start Date End Date Ashok Hurtado PA [address] [place] [address], [address] [place] [address] PCP - General Physician Security Advisor 04/09/21
== END 2024-05-26 16:21 | disposition home or self-care (01) ==
LOC: HO.LAB 16:20
PROVIDERS: PCP Physician Assistant; Visit Provider Internal Medicine Nephrology
DX: N18.4 Chronic kidney disease, stage 4 (severe) (principal)
CPT/HCPCS: 36415; 80051; 82565; 84520

== ENCOUNTER 2024-05-28 15:47 | Outpatient (AMB) | payer OTHER, SELFPAY ==
--- NOTE | 2024-05-28 15:51 | HO.NEPHOV ---
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 His blood sugar controls are fair. He has type 1 diabetes but denies retinopathy or neuropathy. He does not have any edema. His blood pressure has been at goal. He denies uremic symptoms. He does not have any chest pain, shortness of breath, proximal nocturnal dyspnea, orthopnea, nausea, vomiting, diarrhea. He claims to be compliant with his medications. He remains employed and is active [facility] Medical History Type 1 diabetes mellitus with nephropathy Proteinuria 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 Cognitive needs: No Hearing needs: No Vision needs: No Review of Systems Const All systems reviewed & are unremarkable except as noted in HPI and below Physical Exam Vital Signs: Last Vital Signs Pulse 60 05/28/24 15:53 BP 140/70 H 05/28/24 15:53 Pulse Ox 97 05/28/24 15:53 Oxygen Delivery Method Room Air 05/28/24 15:53 BMI result Body Mass Index 35.0 Const General: comfortable and no acute distress Orientation/consciousness: patient oriented x3 HEENT Head: Yes normocephalic Mouth: Normal oral and palatal mucosa present Eyes EOM: EOMs intact bilaterally Neck Neck: Yes supple Resp Auscultation: clear to auscultation bilaterally Cardio Jugular venous distension: no JVD Rate: regular rate GI Palpation (GI): Soft to palpation Auscultation: normal bowel sounds General: Yes no CVA tenderness Back/Spine/Pelvis Back: no CVA tenderness Skin General skin exam: no rashes or lesions noted Neuro General: patient oriented x3 and moves all extremities Extrem General: Yes no pedal edema Results Reviewed Nephrology Results: Sodium 138 mmol/L (135-145) 05/26/24 Potassium 4.6 mmol/L (3.3-5.1) 05/26/24 Chloride 109 mmol/L (96-108) H 05/26/24 Carbon Dioxide 22 mmol/L (22-29) 05/26/24 BUN 53 mg/dL (9-16) H 05/26/24 Creatinine 3.79 mg/dL (0.5-1.4) H 05/26/24 Assessment & Plan Assessment & Plan (1) Type 1 diabetes mellitus with nephropathy: Code(s): E10.21 - Type 1 diabetes mellitus with diabetic nephropathy Category: Medical (2) Essential hypertension: Code(s): I10 - Essential (primary) hypertension Category: Medical (3) Chronic kidney disease, stage 4 (severe): Code(s): N18.4 - Chronic kidney disease, stage 4 (severe) Category: Medical Plan Jurgen has advanced chronic kidney disease. His renal functions had been fairly stable. His blood pressure is at goal. He is tolerating low-dose of PEPE-inhibitor. He has no uremic symptoms. I plan to refer him for a kidney and pancreas transplant,when indicated He should avoid nonsteroidal anti-inflammatories and maintain good hydration. I did not make any medication changes today but rather discussed about his CKD and its management strategies, including renal transplant. He has a sister who is willing to consider donating a kidney to him. Answered all questions Orders: Orders Blood Urea Nitrogen 3 Months E10.21 - Type 1 diabetes mellitus with diabetic nephropathy, I10 - Essential (primary) hypertension, N18.4 - Chronic kidney disease, stage 4 (severe) Creatinine 3 Months E10.21 - Type 1 diabetes mellitus with diabetic nephropathy, I10 - Essential (primary) hypertension, N18.4 - Chronic kidney disease, stage 4 (severe) Electrolytes 3 Months E10.21 - Type 1 diabetes mellitus with diabetic nephropathy, I10 - Essential (primary) hypertension, N18.4 - Chronic kidney disease, stage 4 (severe) Coding Level of Care Code Est Pt Level 4 (41204) Diagnoses Type 1 diabetes mellitus with nephropathy E10.21 Essential hypertension I10 Chronic kidney disease, stage 4 (severe) N18.4
[2024-05-28 15:53] VITALS: BP 140/70; PULSE 60; O2SAT 97; BMI 35.0
--- OUTSIDE RECORDS SUMMARY | 2024-05-28 16:49 | XMS_ITS | Clinical Summary ---
Author Organization [facility] Address [address] [facility] [address] [place] [address] Phone Care Team Providers Care Learning Facilitator Name Role Phone Ashok Hurtado Primary Care Provider [phone] Allergies Active Allergy Reactions Criticality Noted Date [...] HEALTH MEDICAID [facility] MED[facility] Care Teams Learning Facilitator Relationship Specialty Start Date End Date Ashok Hurtado PA [address] [place] [address], [address] [place] [address] PCP - General Physician Farmworker Pullet Farm 04/09/21
== END 2024-05-28 16:21 | disposition home or self-care (01) ==
LOC: HO.HKA 15:48
PROVIDERS: Visit Provider Internal Medicine Nephrology
DX: E10.21 Type 1 diabetes mellitus with diabetic nephropathy (principal); I12.9 Hypertensive chronic kidney disease with stage 1 through stage 4 chronic kidney disease, or unspecified chronic kidney disease; N18.4 Chronic kidney disease, stage 4 (severe)
CPT/HCPCS: 99214

== ENCOUNTER → 2024-05-28 15:47 | Outpatient (BNVA) | payer OTHER, SELFPAY | PROVIDERS: Visit Provider Internal Medicine Nephrology | DX: E10.22 Type 1 diabetes mellitus with diabetic chronic kidney disease (principal); E10.21 Type 1 diabetes mellitus with diabetic nephropathy; I12.9 Hypertensive chronic kidney disease with stage 1 through stage 4 chronic kidney disease, or unspecified chronic kidney disease; N18.4 Chronic kidney disease, stage 4 (severe) | CPT/HCPCS: 99212 ==

== ENCOUNTER 2024-06-25 08:02 | Outpatient (REF) | payer OTHER, SELFPAY ==
--- OUTSIDE RECORDS SUMMARY | 2024-06-25 08:09 | XMS_ITS | Clinical Summary ---
Author Organization [facility] Address [address] [facility] [address] [place] [address] Phone Care Team Providers Care Mining Analyst Name Role Phone Ashok Hurtado Primary Care Provider [phone] Allergies Active Allergy Reactions Criticality Noted Date [...] Health Maintenance Due Date Last Done Comments Hepatitis B Vaccine (1 of 3 - 19+ 3-dose series) 05/20 Pneumococcal Vaccine: Peds ( 0 to 5 Years) and At-Risk Patients (6 to 49 Years) (1 of 2 - PCV) 2004 Diabetes: Hemoglobin A1C 11/02/2020 Diabetes: Ophthalmology Exam 11/02/2020 Diabetes: Pedal Pulse Checked 11/02/2020 Diabetes: Sensory Foot Exam 11/02/2020 Diabetes: Visual Foot Exam 11/02/2020 Influenza Vaccine (Season Ended) 2024 Insurance [facility] Medicaid [facility] Medicaid Care Teams Mining Analyst Relationship Specialty Start Date End Date Ashok Hurtado PA [address] [place] [address], [address] [place] [address] PCP - General Physician Cluster Bore Operator 04/09/21
[2024-06-25 08:28] LABS: Hematocrit 44.5 % (42.0-52.0); Hemoglobin 13.9 g/dl (14.0-18.0); Mean Corpuscular HGB Conc 31.2 g/dl (31.0-36.0); Mean Corpuscular Hemoglobin 25.4 pg (27.0-33.0); Mean Corpuscular Volume 81.4 fL (80.0-98.0); Mean Platelet Volume 9.7 fL (9.4-12.4); Platelet Count 207 X10*3/uL (160-400); Red Blood Count 5.47 X10*6/uL (4.60-5.80); Red Cell Distribution Width 13.7 % (11.0-16.0); White Blood Count 10.1 X10*3/uL (4.8-10.8)
[2024-06-25 09:15] LABS: Alanine Aminotransferase 24 U/L (0-40); Alkaline Phosphatase 109 U/L (39-117); Anion Gap 12 (12-20); Aspartate Amino Transferase 20 U/L (5-37); Bilirubin Total 0.5 mg/dL (0.0-1.0); Blood Urea Nitrogen 40 mg/dL (9-16); Calcium 8.7 mg/dL (8.4-10.2); Carbon Dioxide 21 mmol/L (22-29); Chloride 110 mmol/L (96-108); Cholesterol 116 mg/dL (<200); Estimated Glomerular Filt Rate 20; Glucose Fasting 188 mg/dL (60-99); HDL Cholesterol 43 mg/dL (>40); LDL Cholesterol Calculated 58 mg/dL (<100); Potassium 5.5 mmol/L (3.3-5.1); Sodium 137 mmol/L (135-145); Total Protein 7.1 g/dL (6.5-8.0); Triglycerides 77 mg/dL (<150)
[2024-06-25 09:24] LABS: Creatinine Urine 69.34 mg/dL
== END 2024-06-25 08:03 | disposition home or self-care (01) ==
LOC: HO.LAB 08:02
PROVIDERS: PCP Physician Assistant; Visit Provider Physician Assistant
DX: E10.21 Type 1 diabetes mellitus with diabetic nephropathy (principal); N18.4 Chronic kidney disease, stage 4 (severe); I10 Essential (primary) hypertension; E78.5 Hyperlipidemia, unspecified
CPT/HCPCS: 36415; 80053; 80061; 82043; 82570; 85027

== ENCOUNTER 2024-06-28 15:42 | Outpatient (AMB) | payer OTHER, SELFPAY ==
--- NOTE | 2024-06-28 15:46 | A.OFFPC_ITS ---
Vital Signs 06/28/24 16:20 Height 5 ft 5 in Weight 206 lb 2 oz BMI 34.3 BP 122/80 Blood Pressure Location Lt brachial Position Sitting Pulse 61 Pulse Source Pulse Oximeter Temp 97.5 F Temp Source Temporal Artery Scan Pulse Oximetry (%) 98 Oxygen Delivery Method Room Air Intake Visit Reasons: annual exam Compositor Apprentice Required: No Accompanied by: Self / Same As Patient Allergies aspirin [ASA] Allergy (Unknown, Verified 06/28/24 16:24) ANAPHYLAXIS benazepril Allergy (Unknown, Verified 06/28/24 16:24) hyperkalemia Medication List - Last Reconciled 06/28/24 by Ashok Hurtado PA-C acetone (urine) test (Ketone Urine Test strips) As directed for glucose over 250, illness, nausea/vomiting tid prn ezetimibe (Zetia) 10 mg PO DAILY glucagon 3 mg/actuation (Baqsimi) 3 mg intranasal .prn PRN 30 days MDD 6 mg infusion set for insulin pump As directed insulin aspart U-100 (Novolog U-100 Insulin aspart) 125 units (1.25 mL) continuous subcutaneous infusion DAILY 30 days insulin glargine (Lantus Solostar U-100 Insulin) 40 units (0.4 mL) subcut DAILY 30 days [insulin pump supplies As directed] insulin syringe-needle U-100 (BD Veo Insulin Syringe Ultra-Fine) As directed lisinopril 2.5 mg PO DAILY 90 days metoprolol succinate ER 100 mg PO DAILY nifedipine ER 60 mg PO DAILY 90 days pen needle, diabetic (BD Ultra-Fine Kamala Pen Needle) As directed one daily rosuvastatin 20 mg PO DAILY sodium polystyrene sulf-sorbtl 15-20 gram/60 mL 120 mL PO .three times weekly urine glucose-ketones test (Keto-Diastix strips) As directed glucose over 250, illness, nausea,vomiting Tobacco use date assessed: 06/28/24 Dental Screening Dental Screen Date: 06/28/24 Did you have a dental visit in the last 12 months?: Yes Did you have a dental problem in the last 6 months where you did not have access to dental care?: No Was dental information given to patient?: Patient has dentist HPI annual exam HPI Details Patient is a 39-year-old male here today for n and physical. Patient has a past medical history significant for type 1 diabetes, CKD stage for, hypertension, hyperlipidemia. Type 1 diabetes: Patient is followed by endocrinology and continues on insulin pump.? Today's A1c acceptable ..? He does report blood sugars have been fairly stable. CKD stage 4:? Patient is followed by Nephrology, blood pressure today in office acceptable. GFR remains around 20. He has been referred for kidney and pancreas transplant. ., Hyperkalemia: Most recent potassium at 5.5. Has seen his plate stacker hand and prescribed polystyrene to take 60 mg 3x weekly due to chronic hyperkalemia. Vaccines : Up-to-date with pneumonia, COVID, tetanus Laboratory Tests 07/04/23 07/04/23 02/26/24 11:08 11:10 16:33 RBC 6.12 H Hgb Creatinine 3.99 H Fasting Glucose Cholesterol Urine Creatinine 87.36 05/26/24 06/25/24 06/25/24 16:36 08:07 08:10 RBC 5.47 Hgb 13.9 L Creatinine 3.79 H 3.47 H Fasting Glucose 188 H Cholesterol 116 Urine Creatinine 69.34 [facility] Medical History Type 1 diabetes mellitus with nephropathy Proteinuria 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 1. Little interest or pleasure in doing things: not at all 2. Feeling down, depressed, or hopeless: not at all 3. Trouble falling or staying asleep, or sleeping too much: not at all 4. Feeling tired or having little energy: not at all 5. Poor appetite or overeating: not at all 6. Feeling bad about yourself - or that you are a failure or have let yourself or your family down: not at all 7. Trouble concentrating on things, such as reading the newspaper or watching television: not at all 8. Moving or speaking so slowly that other people could have noticed. Or the opposite - being so fidgety or restless that you have been moving around a lot more than usual: not at all 9. Thoughts that you would be better off or of hurting yourself in some way: not at all Total score: 0 Depression Screening Interpretation: Negative Depression Screening Done: Yes 84263 - PHQ-9 Billing: Yes Source: Developed by Drs. Nikolai Martinez, Alicia Aaron, Shane Potter and colleagues, with an educational han from [employer]. Thrive Questionnaire Date Thrive assessed: 06/28/24 I am a: Patient What is your living situation today?: I have a steady place to live Within the past 12 months, did the food you bought not last and you didn't have the money to get more?: Never true Within the past 12 months, did you worry whether your food would run out before you got money to buy more?: Never true Do you have trouble paying for medicines?: No Do you have trouble getting transportation to medical appointments?: No Do you have trouble paying your heating and electricity bill?: No Do you have trouble taking care of your child, family member or friend?: No Do you have trouble with day-to-day activities such as bathing, preparing meals, shopping, managing finances, etc.?: No Are you currently unemployed and looking for a job?: No Are you interested in more education?: No Please select the resources that you would like help with: None Currently or been in a relationship where the following occur: No concerns reported THRIVE Score: 0 AUDIT C Alcohol Use Questionnaire (AUDIT-C) 1. How often do you have a drink containing alcohol?: Monthly or less 2. How many drinks containing alcohol do you have on a typical day when you are drinking?: 1 or 2 3. How often do you have six or more drinks on one occasion?: Never Total Score: 1 CAMILO-7 AMB Questionnaire CAMILO-7 Date CAMILO - 7 assessed: 06/28/24 Feeling nervous, anxious, or on edge: 0 = Not at all Not being able to stop or control worryin = Not at all Worrying too much about different things: 0 = Not at all Trouble relaxin = Not at all Being so restless that it is hard to sit still: 0 = Not at all Becoming easily annoyed or irritable: 0 = Not at all Feeling afraid as if something awful might happen: 0 = Not at all Total CAMILO-7 score (0-4 normal; 5-9 mild; 10-14 moderate; 15-21 severe): 0 Source: Developed by Drs. Nikolai Martinez, Alicia Aaron, Shane Potter and colleagues, with an educational han from [employer]. CAMILO-7 Assessment Billing CAMILO-7 Assessment Tool: CAMILO-7 Assessment 61868 Review of Systems Const Denies body aches, Denies chills, Denies excessive sweating, Denies fatigue, Denies fever(s) and Denies headache(s) Eyes Denies blurry vision ENT Denies dysphagia, Denies vertigo, Denies dizziness, Denies headache(s), Denies hearing loss and Denies tinnitus Card Denies chest pain, Denies chest pain with activity, Denies syncope, Denies irregular heart rhythm and Denies dyspnea Resp Denies chest congestion, Denies cough, Denies hemoptysis, Denies dyspnea and Denies wheezing GI Denies abdominal pain, Denies melena, Denies hematochezia, Denies coffee ground emesis, Denies dysphagia, Denies diarrhea, Denies nausea and Denies vomiting Denies difficulty urinating, Denies dysuria, Denies urinary frequency, Denies urinary hesitancy and Denies urinary urgency Musc Denies arthralgias, Denies limited range of motion, Denies muscle cramps and Denies muscle weakness Skin/Breast Denies rash and Denies skin ulcer Neuro Denies Abnormal speech present, Denies confusion, Denies vertigo, Denies dizziness, Denies syncope, Denies headache(s), Denies memory loss and Denies seizure-like activity Psych Denies anxiety, Denies confusion, Denies depression, Denies memory loss, Denies panic attacks and Denies paranoia Endo Denies excessive sweating, Denies fatigue, Denies flushing, Denies polydipsia a nd Denies polyuria Aller/Immun Denies wheezing Physical exam (Primary Care) Vital Signs: Last Vital Signs Temp 97.5 F 06/28/24 16:20 Pulse 61 06/28/24 16:20 BP 122/80 06/28/24 16:20 Pulse Ox 98 06/28/24 16:20 Oxygen Delivery Method Room Air 06/28/24 16:20 BMI result Body Mass Index 34.3 BMI Assessment/Plan discussion: High BMI High, discussed plan: lifestyle, weight reduction, dietary and physical activity Tobacco/Smoking Status: Tobacco use Status Tobacco use date assessed 06/28/24 06/28/24 15:51 Patient Tobacco Use Status Former Tobacco user 06/28/24 15:46 e-Cigarette/Vaping Use Never Used 06/28/24 15:46 PHQ-9: PHQ-9 Score PHQ-9: Total score 0 06/28/24 16:51 Depression Screening Interpretation: Negative Thrive Assessment: Date of Thrive Assessment Date Thrive assessed 06/28/24 06/28/24 15:51 Currently or been in a relationship where the following occur: No concerns reported Const General: cooperative, comfortable, no acute distress, alert and awake; No confusion Orientation/consciousness: oriented to person, oriented to place, patient oriented x3 and No confusion HENMT Head: Yes normocephalic Ears: external ears normal and TM's normal bilaterally Face and sinus: No sinus tenderness Mouth: Normal oral and palatal mucosa present and tongue normal Teeth and gingiva: dentition normal and gingiva normal Throat: Yes posterior oropharynx normal, Yes tonsils normal and Yes uvula midline Eyes Conjunctivae: conjunctivae normal Sclerae: sclerae normal Pupils: Equal, round and reactive pupils present EOM: EOMs intact bilaterally Direct Ophthalmoscopy: No no photophobia Neck Neck: Yes no lymphadenopathy, No tender and Yes no JVD Thyroid: Thyroid normal Carotids: no bruits Chest Chest palpation & inspection: no tenderness Resp Effort & Inspection: normal respiratory effort, no audible wheezes, not labored and no stridor Auscultation: no crackles, no rales, no rhonchi and no wheezes Cardio Jugular venous distension: no JVD Rate: regular rate, not bradycardic and not tachycardic Rhythm: regular rhythm Bruits: no carotid bruits Peripheral pulses: Peripheral pulses 2+ throughout GI Inspection: Yes normal to inspection, No abdominal wall ecchymosis and No visible herniation Palpation (GI): Soft to palpation, nontender, no guarding, not rigid and No hepatosplenomegaly present Auscultation: normoactive bowel sounds General: Yes no CVA tenderness Back/Spine/Pelvis Back: no CVA tenderness and No back tenderness Cervical Spine: cervical ROM normal Thoracic/Lumbar Spine: thoracic and lumbar spine normal to inspection, straight leg raise negative bilaterally, No thoraco-lumbar ROM limited and No lumbar spinal tenderness Skin Lesions: no lesions Rashes: no rashes Wounds: no wounds Neuro General: oriented to person, oriented to place, patient oriented x3, CN's II-XI intact bilaterally and No confusion Cranial nerves: Yes Equal, round and reactive pupils present and Yes Normal accommodation reflex present Cognition (Neuro): normal cognition Speech: No Abnormal speech present Gait exam (Neuro): Normal gait present Motor exam (neuro): 5/5 motor strength present throughout Extrem Right upper extremity: full ROM; no cyanosis Left upper extremity: full ROM; no cyanosis Right lower extremity: no edema Left lower extremity: no edema Psych Appearance: grossly normal Mental Status: mental status grossly normal Affect: normal affect Attitude: cooperative Thought process: Normal thought process present Results AMB Hemoglobin A1c AMB Hemoglobin A1c 6.8 % Last Edit by LEELEE Acosta on 06/28/24 16:53 Results Reviewed Results Reviewed: Laboratory Last Values Hgb A1c (Clinic) 6.8 % (4.0-6.0) H 06/28/24 16:52 Coding Level of Care Code Est Pt Prev Care 18-39y(93133) Diagnoses Annual physical exam Z00.00 Type 1 diabetes mellitus with nephropathy E10.21 Hyperlipidemia LDL goal <100 E78.5 Chronic kidney disease, stage 4 (severe) N18.4 Essential hypertension I10 Hyperkalemia E87.5 Subacute cough R05.2 Cough type: subacute Class 1 obesity E66.811 Additional Codes CAMILO-7 Assessment Billing - CAMILO-7 Assessment Tool: CAMILO-7 Assessment 17306 ([id number]) PHQ-9 - 37035 - PHQ-9 Billing: Yes ([id number]) Assessment & Plan Assessment & Plan (1) Annual physical exam: Code(s): Z00.00 - Encounter for general adult medical examination without abnormal findings Category: Medical Plan: As per HPI (2) Type 1 diabetes mellitus with nephropathy: Code(s): E10.21 - Type 1 diabetes mellitus with diabetic nephropathy Category: Medical Plan: Patient's type 1 diabetes well controlled with A1c today is 6.8. He continues on an insulin pump and does see an retort cooler regularly. Does see an special education paraprofessional and gets eye exams regularly as well. Goal A1c is to remain below 7.0 (3) Hyperlipidemia LDL goal <100: Code(s): E78.5 - Hyperlipidemia, unspecified Category: Medical Plan: Patient's most recent lipid panel showing excellent control of his total cholesterol and LDL. Will continue his current dose of atorvastatin and Zetia. Goal LDL to remain below 100 (4) Chronic kidney disease, stage 4 (severe): Code(s): N18.4 - Chronic kidney disease, stage 4 (severe) Category: Medical Plan: Patient followed by Nephrology in [place]. Does have chronic hyperkalemia to which he uses polystyrene solution 3 times a week. Most recent potassium at 5.5. Will continue to avoid any nephrotoxins (5) Essential hypertension: Code(s): I10 - Essential (primary) hypertension Category: Medical Plan: Patient's blood pressure acceptable today in office. Goal blood pressures to remain below 140/90 (6) Hyperkalemia: Code(s): E87.5 - Hyperkalemia Category: Medical Plan: As above (7) Cough: Code(s): R05.9 - Cough, unspecified Category: Medical Qualifiers: Cough type: subacute Qualified Code(s): R05.2 - Subacute cough Plan: Patient does report having a cough over the last week. Otherwise denies any productivity of the cough. Denies any fevers or chills. Will supply patient with cough suppressant tablets (8) Class 1 obesity: Code(s): E66.811 - Obesity, class 1 Category: Medical Plan: Patient does understand his BMI is over 30 will work on being more physically active and adapting to better eating habits to reduce his weight Orders: Orders Complete Blood Count no Diff 06/28/24 E10.21 - Type 1 diabetes mellitus with diabetic nephropathy Comprehensive [place]. Panel Fast 06/28/24 E10.21 - Type 1 diabetes mellitus with diabetic nephropathy Lipid Panel 06/28/24 E78.5 - Hyperlipidemia, unspecified AMB Hemoglobin A1c 06/28/24 E10.21 - Type 1 diabetes mellitus with diabetic nephropathy Medications: New benzonatate 200 mg PO TID 15 caps 0RF 5 days R05.9 - Cough, unspecified Refilled ezetimibe (Zetia) 10 mg PO DAILY 90 tabs 1RF E78.5 - Hyperlipidemia, unspecified insulin aspart U-100 (Novolog U-100 Insulin aspart) up to 125 units daily via pump 125 units (1.25 mL) continuous subcutaneous infusion DAILY 40 mL 11RF hyperglycemia 30 days E10.22 - Type 1 diabetes mellitus with diabetic chronic kidney disease, N18.4 - Chronic kidney disease, stage 4 (severe) lisinopril 2.5 mg PO DAILY 90 tabs 0RF 90 days I10 - Essential (primary) hypertension metoprolol succinate ER 100 mg PO DAILY 90 tabs 4RF I10 - Essential (primary) hypertension glucagon 3 mg/actuation (Baqsimi) 3 mg intranasal .prn PRN 2 ea 1RF unresponsive hypoglycemia 30 days MDD 6 mg insulin glargine (Lantus Solostar U-100 Insulin) 40 units (0.4 mL) subcut DAILY 12 mL 5RF 30 days sodium polystyrene sulf-sorbtl 15-20 gram/60 mL 120 mL PO .three times weekly 473 mL 4RF E87.5 - Hyperkalemia Patient Instructions: Goal: A1c to remain below 7.0, LDL to be below 100 Barriers: Adherence to physical activity and healthy eating habits
[2024-06-28 16:20] VITALS: BP 122/80; PULSE 61; TEMP 36.4; O2SAT 98; BMI 34.3
--- OUTSIDE RECORDS SUMMARY | 2024-06-28 17:12 | XMS_ITS | Clinical Summary ---
Author Organization [facility] Address [address] [facility] [address] [place] [address] Phone Care Team Providers Care Linoleum Layer Name Role Phone Ashok Hurtado Primary Care Provider [phone] Allergies Active Allergy Reactions Criticality Noted Date [...] Health Medicaid [facility] Medicaid Care Teams Linoleum Layer Relationship Specialty Start Date End Date Ashok Hurtado PA [address] [place] [address], [address] [place] [address] PCP - General Physician Ultra Sound Technician 04/09/21
== END 2024-06-28 16:37 | disposition home or self-care (01) ==
LOC: HO.HMCH 15:42
PROVIDERS: Visit Provider Physician Assistant
DX: E10.21 Type 1 diabetes mellitus with diabetic nephropathy (principal)

== ENCOUNTER → 2024-06-28 15:42 | Outpatient (BNVA) | payer OTHER, SELFPAY | PROVIDERS: Visit Provider Physician Assistant | DX: Z00.00 Encounter for general adult medical examination without abnormal findings (principal); E10.22 Type 1 diabetes mellitus with diabetic chronic kidney disease; I12.9 Hypertensive chronic kidney disease with stage 1 through stage 4 chronic kidney disease, or unspecified chronic kidney disease; N18.4 Chronic kidney disease, stage 4 (severe); E78.5 Hyperlipidemia, unspecified; E87.5 Hyperkalemia; R05.2 Subacute cough; E66.811 Obesity, class 1; Z68.34 Body mass index [BMI] 34.0-34.9, adult; Z96.41 Presence of insulin pump (external) (internal) | CPT/HCPCS: 83036; 96127; 99395 ==

== ENCOUNTER 2024-07-07 15:40 | Outpatient (AMB) | payer OTHER, SELFPAY ==
--- NOTE | 2024-07-07 13:23 | A.OFFVIS_ITS ---
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 He is on a Tandem insulin pump. Hgb A1C 07/07/24 6.8 % Dexcom average glucose: 170 14 day continuous glucose monitor report reviewed Glucose Managment indicator 7.4 % Days with CGM data 100 % TIme in ranges: Fourteen % very high (above 250) 18 % high ?(181-250) 67 % in range ?(70-180] 0.6 % low (69-55) 0 % ?very low (below 54) CGM interpretation: Some postprandial elevations later in the day in the evening. Average daily carb intake is somewhat excessive at 380 Patient reports he sometimes does not give himself insulin when he is at work in the afternoon because he has had a few lows. Total daily dose of insulin 96.3 Basal 35% 33.3 bolus 65% 63 0.01 Average carbs 380 ?Basal rate(s) (units/hour) : 12 AM? to 3 AM? 1.1 units / hr 3 AM? to 7 AM? 1.1 units / hr 7 AM? to 4 PM? 0.9 units / hr 4 PM to 12 AM? 1.2 units / hr Bolus setting Insulin Carbohydrate Ratio (s) 12 AM? to 2 PM? 1:7 2PM to 4 PM 1:6.5 4 PM to 12 AM 1:6.3 Correction Factor / Sensitivity Factor 12 AM? to 7 AM? 1:40 7 AM? to 2 PM? 1:48 2 PM to 4 PM 1:45 4 PM to 12 AM 1:33 Active Insulin Time: Control IQ 4.0 hours Target(s): Control IQ target 2 AM? to 12 AM?110 mg/dL Control IQ off target 12 AM? to 12 AM? 120 mg/dL Micro and macrovascular complications: + nephropathy, + retinopathy Has retinopathy: seen in March by singh akbar I in [facility] Followed by Dr. Justice. Kidney function has been stable. If it deteriorates Dr. Justice will refer patient for kidney/pancreas transplant. He has follow up in September. Has had intermittent high potassium in his treated with Kayexalate. 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 Absence of acromegalic features. Neck exam reveals nl size thyroid about 15 gms. No thyroid nodules palpable. Heart S1 S2, Reg R/R. No M/R G. 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 He reports that it some days at work if he takes his full insulin dosing he has low dependent on how active he is. He does cut back on the amount of insulin he will take in closely watch his his sugars. He was counseled to always carry a sugar source Orders: Orders AMB Glucose Monitoring Today E10.22 - Type 1 diabetes mellitus with diabetic chronic kidney disease, N18.4 - Chronic kidney disease, stage 4 (severe) Patient Instructions: The patient was counseled to achieve a target A1C of 7% (154 avg). Fasting blood sugars should be 90-130 in the morning and less than 180 two hours after meals. Reviewed the relationship between poor diabetic control and the development of complications. Coding Level of Care Code Est Pt Level 4 (00525) Complex EM visit Add On G2211 Diagnoses Type 1 diabetes mellitus with stage 4 chronic kidney disease E10.22; N18.4 Chronic kidney disease stage: stage 4 (severe) CPT Codes Details - CPT: 40557 - Glucose monitoring, continuous-physician I&R ([id number]) Time Spent (min) 30 Comment Reviewing labs/provider notes, glucose sensor/pump reports, face to face, chart doc
--- OUTSIDE RECORDS SUMMARY | 2024-07-07 15:43 | XMS_ITS | Clinical Summary ---
Author Organization [facility] Address [address] [facility] [address] [place] [address] Phone Care Team Providers Care Labor Expediter Name Role Phone Ashok Hurtado Primary Care Provider [phone] Allergies Active Allergy Reactions Criticality Noted Date [...] Health Medicaid [facility] Medicaid Care Teams Labor Expediter Relationship Specialty Start Date End Date Ashok Hurtado PA [address] [place] [address], [address] [place] [address] PCP - General Physician Community Midwife 04/09/21
[2024-07-07 15:44] VITALS: BP 120/70; PULSE 60; O2SAT 97; BMI 34.5
[2024-07-07 16:04] LABS: Glucose, Whole Blood 98 mg/dL (60-115)
== END 2024-07-07 16:30 | disposition home or self-care (01) ==
LOC: HO.ENCR 15:40
PROVIDERS: Visit Provider Nurse Practitioner Adult Health
DX: E10.22 Type 1 diabetes mellitus with diabetic chronic kidney disease (principal); N18.4 Chronic kidney disease, stage 4 (severe)
CPT/HCPCS: 95251; 99214; G2211

== ENCOUNTER → 2024-07-07 15:40 | Outpatient (BNVA) | payer OTHER, SELFPAY | PROVIDERS: Visit Provider Nurse Practitioner Adult Health | DX: Z46.81 Encounter for fitting and adjustment of insulin pump (principal); E10.22 Type 1 diabetes mellitus with diabetic chronic kidney disease; N18.4 Chronic kidney disease, stage 4 (severe) | CPT/HCPCS: 82947; 99212 ==

== ENCOUNTER 2024-10-07 15:00 | Outpatient (REF) | payer OTHER, SELFPAY ==
--- OUTSIDE RECORDS SUMMARY | 2024-10-07 15:37 | XMS_ITS | Clinical Summary ---
Author Organization [facility] Address [address] [facility] [address] [place] [address] Phone Care Team Providers Care Sales Planner Name Role Phone Ashok Hurtado Primary Care Provider [phone] Allergies Active Allergy Reactions Criticality Noted Date [...] Visual Foot Exam 11/02/2020 Influenza Vaccine (#1) 2024 Insurance [facility] Medicaid [facility] Medicaid Care Teams Sales Planner Relationship Specialty Start Date End Date Ashok Hurtado PA [address] [place] [address], [address] [place] [address] PCP - General Physician Oil Winterizer 04/09/21
[2024-10-07 16:29] LABS: Anion Gap 14 (12-20); Blood Urea Nitrogen 44 mg/dL (9-16); Carbon Dioxide 21 mmol/L (22-29); Chloride 110 mmol/L (96-108); Estimated Glomerular Filt Rate 18; Potassium 4.5 mmol/L (3.3-5.1); Sodium 140 mmol/L (135-145)
== END 2024-10-07 15:01 | disposition home or self-care (01) ==
LOC: HO.LAB 15:00
PROVIDERS: Visit Provider Internal Medicine Nephrology
DX: I12.9 Hypertensive chronic kidney disease with stage 1 through stage 4 chronic kidney disease, or unspecified chronic kidney disease (principal); E10.21 Type 1 diabetes mellitus with diabetic nephropathy; E10.22 Type 1 diabetes mellitus with diabetic chronic kidney disease; N18.4 Chronic kidney disease, stage 4 (severe)
CPT/HCPCS: 36415; 80051; 82565; 84520

== ENCOUNTER 2024-10-13 09:42 | Outpatient (AMB) | payer OTHER, SELFPAY ==
--- NOTE | 2024-10-13 09:52 | HO.NEPHOV ---
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 His blood sugar controls are fair. He has type 1 diabetes but denies retinopathy or neuropathy. He does not have any edema. His blood pressure has been at goal. He denies uremic symptoms. He does not have any chest pain, shortness of breath, proximal nocturnal dyspnea, orthopnea, nausea, vomiting, diarrhea. He claims to be compliant with his medications. 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 Cognitive needs: No Hearing needs: No Vision needs: No Review of Systems Const All systems reviewed & are unremarkable except as noted in HPI and below Physical Exam Vital Signs: Last Vital Signs Pulse 66 10/13/24 09:53 BP 126/84 10/13/24 09:53 Pulse Ox 98 10/13/24 09:53 Oxygen Delivery Method Room Air 10/13/24 09:53 BMI result Body Mass Index 33.5 Const General: comfortable and no acute distress Orientation/consciousness: patient oriented x3 HEENT Head: Yes normocephalic Mouth: Normal oral and palatal mucosa present Eyes EOM: EOMs intact bilaterally Neck Neck: Yes supple Resp Auscultation: clear to auscultation bilaterally Cardio Jugular venous distension: no JVD Rate: regular rate GI Palpation (GI): Soft to palpation Auscultation: normal bowel sounds General: Yes no CVA tenderness Back/Spine/Pelvis Back: no CVA tenderness Skin General skin exam: no rashes or lesions noted Neuro General: patient oriented x3 and moves all extremities Extrem General: Yes no pedal edema Results Reviewed Nephrology Results: Hgb, (14.0-18.0) 13.9 g/dl L 06/25/24 WBC, (4.8-10.8) 10.1 X10*3/uL 06/25/24 Plt Count, (160-400) 207 X10*3/uL 06/25/24 Sodium, (135-145) 140 mmol/L 10/07/24 Potassium, (3.3-5.1) 4.5 mmol/L 10/07/24 Chloride, (96-108) 110 mmol/L H 10/07/24 Carbon Dioxide, (22-29) 21 mmol/L L 10/07/24 BUN, (9-16) 44 mg/dL H 10/07/24 Creatinine, (0.5-1.4) 3.84 mg/dL H 10/07/24 Calcium, (8.4-10.2) 8.7 mg/dL Δ 06/25/24 Urine Creatinine 69.34 mg/dL 06/25/24 Assessment & Plan Assessment & Plan (1) Essential hypertension: Code(s): I10 - Essential (primary) hypertension Category: Medical (2) Type 1 diabetes mellitus with chronic kidney disease: Code(s): E10.22 - Type 1 diabetes mellitus with diabetic chronic kidney disease Category: Medical Qualifiers: Chronic kidney disease stage: stage 4 (severe) Qualified Code(s): E10.22 - Type 1 diabetes mellitus with diabetic chronic kidney disease; N18.4 - Chronic kidney disease, stage 4 (severe) (3) Type 1 diabetes mellitus with nephropathy: Code(s): E10.21 - Type 1 diabetes mellitus with diabetic nephropathy Category: Medical (4) Chronic kidney disease, stage 4 (severe): Code(s): N18.4 - Chronic kidney disease, stage 4 (severe) Category: Medical Plan Jurgen has advanced chronic kidney disease. His renal functions had been fairly stable. His blood pressure is at goal. He is tolerating low-dose of PEPE-inhibitor. He has no uremic symptoms. I plan to refer him for a kidney and pancreas transplant,when indicated He should avoid nonsteroidal anti-inflammatories and maintain good hydration. I did not make any medication changes today but rather discussed about his CKD and its management strategies, including renal transplant. He has a sister who is willing to consider donating a kidney to him. Answered all questions Orders: Orders Blood Urea Nitrogen 3 Months E10.21 - Type 1 diabetes mellitus with diabetic nephropathy, E10.22 - Type 1 diabetes mellitus with diabetic chronic kidney disease, I10 - Essential (primary) hypertension, N18.4 - Chronic kidney disease, stage 4 (severe) Electrolytes 3 Months E10.21 - Type 1 diabetes mellitus with diabetic nephropathy, E10.22 - Type 1 diabetes mellitus with diabetic chronic kidney disease, I10 - Essential (primary) hypertension, N18.4 - Chronic kidney disease, stage 4 (severe) Creatinine 3 Months E10.21 - Type 1 diabetes mellitus with diabetic nephropathy, E10.22 - Type 1 diabetes mellitus with diabetic chronic kidney disease, I10 - Essential (primary) hypertension, N18.4 - Chronic kidney disease, stage 4 (severe) Coding Level of Care Code Est Pt Level 4 (12843) Diagnoses Essential hypertension I10 Type 1 diabetes mellitus with stage 4 chronic kidney disease E10.22; N18.4 Chronic kidney disease stage: stage 4 (severe) Type 1 diabetes mellitus with nephropathy E10.21 Chronic kidney disease, stage 4 (severe) N18.4
[2024-10-13 09:53] VITALS: BP 126/84; PULSE 66; O2SAT 98; BMI 33.5
--- OUTSIDE RECORDS SUMMARY | 2024-10-13 10:32 | XMS_ITS | Clinical Summary ---
Author Organization [facility] Address [address] [facility] [address] [place] [address] Phone Care Team Providers Care Data Warehousing Specialist Name Role Phone Ashok Hurtado Primary Care Provider [phone] Allergies Active Allergy Reactions Criticality Noted Date [...] Health Medicaid [facility] Medicaid Care Teams Data Warehousing Specialist Relationship Specialty Start Date End Date Ashok Hurtado PA [address] [place] [address], [address] [place] [address] PCP - General Physician Diesel Plant Operator 04/09/21
== END 2024-10-13 10:09 | disposition home or self-care (01) ==
LOC: HO.HKA 09:43
PROVIDERS: Visit Provider Internal Medicine Nephrology
DX: I12.9 Hypertensive chronic kidney disease with stage 1 through stage 4 chronic kidney disease, or unspecified chronic kidney disease (principal); E10.22 Type 1 diabetes mellitus with diabetic chronic kidney disease; N18.4 Chronic kidney disease, stage 4 (severe); E10.21 Type 1 diabetes mellitus with diabetic nephropathy
CPT/HCPCS: 99214

== ENCOUNTER → 2024-10-13 09:42 | Outpatient (BNVA) | payer OTHER, SELFPAY | PROVIDERS: Visit Provider Internal Medicine Nephrology | DX: E10.22 Type 1 diabetes mellitus with diabetic chronic kidney disease (principal); E10.21 Type 1 diabetes mellitus with diabetic nephropathy; R80.9 Proteinuria, unspecified; I10 Essential (primary) hypertension; E78.5 Hyperlipidemia, unspecified; N18.4 Chronic kidney disease, stage 4 (severe) | CPT/HCPCS: 99212 ==

== ENCOUNTER 2024-10-15 09:06 | Emergency (ER) | payer OTHER, SELFPAY ==
[2024-10-15 09:08] VITALS: BP 122/73; PULSE 69; RESP 16; TEMP 36; O2SAT 97; BMI 32.4
--- NOTE | 2024-10-15 09:09 | ED_ITS ---
HPI - General Adult General Chief complaint: Animal Bite Stated complaint: Stung by Multiple Bees Work Related Time Seen by Provider: 10/15/24 09:08 Source: patient Mode of arrival: ambulatory Limitations: no limitations History of Present Illness ED Provider: Amie Venegas PA-C HPI narrative: Patient is a 39 year old assigned male at with a history of DM, CKD, and HTN presenting to the emergency department today with a bee sting to his left ear and left ankle. Patient states that he works in [employer] and was drilling a hole outside of a house for ventilation when he accidentally hit a bee hive and got stung on his left ear and his left ankle. Patient states that he does not have an allergy. Patient denies any other complaints at this time. Related Data Previous Rx's ?Medication ?Instructions ?Recorded infusion set for insulin pump #10 ea 09/26/22 insulin pump supplies #2 ea 09/26/22 pen needle, diabetic 32 gauge x #100 ea 06/16/23 5/32 (BD Ultra-Fine Kamala Pen Needle) insulin syringe-needle U-100 0.3 #100 ea 10/08/23 mL 31 gauge x 15/64 (BD Veo Insulin Syringe Ultra-Fine) urine glucose-ketones test #50 ea 10/08/23 (Keto-Diastix strips) acetone (urine) test (Ketone Urine #25 ea 04/07/24 Test strips) nifedipine 60 mg tablet,extended 60 mg PO DAILY 90 day s #90 tabs 04/26/24 release 24 hr rosuvastatin 20 mg tablet 20 mg PO DAILY #90 tabs 05/26 07/18 benzonatate 200 mg capsule 200 mg PO TID 5 days #15 ca ps 06/28/24 ezetimibe 10 mg tablet (Zetia) 10 mg PO DAILY #90 tabs 06/28/24 glucagon 3 mg/actuation nasal 3 mg intranasal .prn PRN 06/28/24 spray (Baqsimi) unresponsive hypoglycemia 30 days #2 ea insulin aspart U-100 100 unit/mL 125 unit (1.25 mL) co ntinuous 06/28/24 subcutaneous solution (Novolog subcutaneous infusion D AILY U-100 Insulin aspart) hyperglycemia 30 days #40 mL insulin glargine 100 unit/mL (3 40 unit (0.4 mL) subcu t DAILY 30 06/28/24 mL) subcutaneous pen (Lantus #12 mL Solostar U-100 Insulin) lisinopril 2.5 mg tablet 2.5 mg PO DAILY 90 days #90 tabs 06/28/24 metoprolol succinate 100 mg 100 mg PO DAILY #90 tabs 0 06/28/24 tablet,extended release 24 hr sodium polystyrene sulfonate 15 120 ml PO .three times weekly #473 06/28/24 gram-sorbitol 20 gram/60 mL oral mL susp Allergies Allergy/AdvReac Type Severity Reaction Status Date / Time aspirin (ASA) Allergy Unknown ANAPHYLAXIS Verified 10/15/24 09:08 benazepril Allergy Unknown hyperkalemi Verified 10/15/24 09:08 a Review of Systems 2 Constitutional: Constitutional: Reports as per HPI Eyes: Eyes: Reports as per HPI ENT: Comments: left ear bee sting Cardiovascular: Cardiovascular: Reports as per HPI Respiratory: Respiratory: Reports as per HPI Gastrointestinal: Gastrointestinal: Reports as per HPI Genitourinary: Genitourinary: Reports as per HPI Musculoskeletal: Comments: left ankle bee sting Integumentary/Breasts: Skin/Breast: Reports as per HPI Neurologic: Reports as per HPI Psychiatric: Psychiatric: Reports as per HPI Endocrine: Endocrine: Reports as per HPI Hematologic/Lymphatic: Hematologic/Lymphatic: Reports as per HPI Allergic/Immunologic: Allergic/Immunologic: Reports as per HPI [facility] Past Medical History Attestation statement: The following information was validated with the patient. 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 small area of swelling secondary to bee sting - no evidence of stinger General nose exam: Normal external nose present, no nasal discharge noted and no epistaxis Face and sinus: Yes normal facial exam, No abrasion and No laceration Mouth: Normal oral and palatal mucosa present, no drooling and no muffled voice Eyes General: appearance normal, both eyes and all related structures Periorbital: periorbital findings normal Eyelids: Yes eyelids normal Conjunctivae: conjunctivae normal Pupils: Equal, round and reactive pupils present EOM: EOMs intact bilaterally Neck Neck: Yes normal visual inspection and Yes full ROM Resp Effort & Inspection: normal respiratory effort and able to speak in complete sentences Neuro General: patient oriented x3, moves all extremities and CN's II-XI intact bilaterally Cranial nerves: Yes Equal, round and reactive pupils present Cognition (Neuro): normal cognition Extrem General: Yes full ROM and Yes capillary refill normal Ankle/foot/toe images: 2 1. small area of swelling secondary to bee sting - no evidence of remaining stinger Psych Appearance: grossly normal Mental Status: mental status grossly normal Affect: normal affect Attitude: cooperative Thought process: Normal thought process present Thought content: Normal thought content present Insight: Good insight present (Psych) Medical Decision Making Medical Decision Making MDM Narrative: Patient is a 39 year old assigned male at with a history of DM, CKD, and HTN presenting to the emergency department today with a bee sting to his left ear and left ankle. Patient's physical exam was as noted in the physical exam portion of this note. Patient had very minimal swelling to the external left ear and left ankle. No evidence of remaining stingers. Patient's airway is normal - patent. Patient in no acute distress. I explained my physical exam findings to the patient. I answered all questions asked by the patient. I stressed the importance of the patient taking his medication as directed (either prescribed or as the over the counter packaging recommends). I stressed the importance of the patient following up with his primary care provider and given this was a work place injury, work connection. I stressed the importance of the patient returning to the emergency department immediately if his symptoms were to worsen or if he were to develop any dizziness, shortness of breath, difficulty breathing, chest pain, blurry vision, loss of vision, nausea, vomiting, abdominal pain, fever, chills, back pain, or any other complaints. Patient verbalized agreement and understanding with this treatment plan and discharge. Differential Diagnosis Differential Diagnoses: The differential diagnosis associated with the presentation includes Bee sting Insect sting Admission/Observation Consideration of admission/observation: Escalation of care including admission/observation considered Patient would have been admitted to the hospital had his clinical presentation warranted hospital admission. Chronic Conditions Patient?s care impacted by: Diabetes Discharge Plan Discharge Clinical Impression: Accidental insect sting Patient Disposition: Home, Self-Care Instructions: Insect Bite or Sting (ED) Additional Instructions: Take Benadryl over the counter as directed for swelling. Given this was a work place injury - you should follow up with work connection. IF you are prescribed home medications and/or you are taking over the counter medications at home - it is very important you continue to do so as prescribed / directed unless told otherwise. Follow up with your primary care provider. Return to the emergency department immediately if your symptoms worsen or if you develop any numbness, tingling, dizziness, shortness of breath, difficulty breathing, chest pain, blurry vision, loss of vision, nausea, vomiting, abdominal pain, fever, chills, back pain, or any other complaints. Please see the information below about our Patient Portal. If you are not yet enrolled in the [facility] Patient Portal, you will receive an enrollment email invitation following your visit to any [facility] care setting. You may also self-enroll in the Patient Portal by visiting our website: [email or web address] The following information is required to access the Patient Portal: - Your [facility] Medical Record Number - Your personal home email address (must match what is in your electronic medical record, Registration staff can assist with this) - Name - Date of Capabilities of the Patient Portal: - Message some providers - View upcoming appointments - Access your health summary, medical history, and visit history - View current conditions and allergies - View procedure and lab results - View your medications, including guidelines, side effects, and precautions - Complete pre-appointment questionnaires requested by your provider - Ready summary reports of your office visits and procedures To access the Patient Portal Mobile Howie, follow these directions: - Search VeriTran in the Howie Store or Hubba Store - Download the Howie - Search for [facility] - Enter your login/password Prescriptions: No Action (DME) insulin pump supplies See Rx Instructions .Route .MEDSUPPLY Qty: 2 8RF Rx Instructions: As directed (DME) infusion set for insulin pump Infusion Set See Rx Instructions .Route Qty: 10 5RF Rx Instructions: As directed (DME) pen needle, diabetic [BD Ultra-Fine Kamala Pen Needle] 32 gauge x 5/32 needle See Rx Instructions .ROUTE .MEDSUPPLY Qty: 100 4RF Rx Instructions: As directed one daily nifedipine 60 mg tablet extended release 24hr 60 mg PO DAILY 90 Days Qty: 90 4RF rosuvastatin 20 mg tablet 20 mg PO DAILY Qty: 90 0RF (DME) insulin syringe-needle U-100 [BD Veo Insulin Syringe UF] 0.3 mL 31 gauge x 15/64 syringe See Rx Instructions .Route Qty: 100 2RF Rx Instructions: As directed (DME) Keto-Diastix Strip See Rx Instructions .ROUTE .MEDSUPPLY Qty: 50 2RF Rx Instructions: As directed glucose over 250, illness, nausea,vomiting ezetimibe [Zetia] 10 mg tablet 10 mg PO DAILY Qty: 90 1RF Baqsimi 3 mg/actuation spray,non-aerosol 3 mg intranasal .prn MDD 6 mg PRN (Reason: unresponsive hypoglycemia) 30 Days Qty: 2 1RF insulin aspart U-100 [Novolog U-100 Insulin aspart] 100 unit/mL solution 125 unit continuous subcutaneous infusion DAILY 30 Days Qty: 40 11RF Rx Instructions: up to 125 units daily via pump insulin glargine [Lantus Solostar U-100 Insulin] 100 unit/mL (3 mL) insulin pen 40 unit subcut DAILY 30 Days Qty: 12 5RF lisinopril 2.5 mg tablet 2.5 mg PO DAILY 90 Days Qty: 90 0RF metoprolol succinate 100 mg tablet extended release 24 hr 100 mg PO DAILY Qty: 90 4RF sodium polystyrene sulf-sorbtl 15-20 gram/60 mL suspension 120 ml PO .three times weekly Qty: 473 4RF benzonatate 200 mg capsule 200 mg PO TID 5 Days Qty: 15 0RF (DME) Ketone Urine Test Strip See Rx Instructions .ROUTE .MEDSUPPLY Qty: 25 1RF Rx Instructions: As directed for glucose over 250, illness, nausea/vomiting tid prn Referrals: Ashok Hurtado PA-C [Primary Care Provider, Internal Medicine] Work Connection [Provider Group] Referral Note: Given this was a work place injury, you should call to establish and follow up with work connection. Stand Alone Forms: Work/School Release Discharge Date/Time: 10/15/24 09:23 Print Language: Sao Tomean
--- OUTSIDE RECORDS SUMMARY | 2024-10-15 09:27 | XMS_ITS | Clinical Summary ---
Author Organization [facility] Address [address] [facility] [address] [place] [address] Phone Care Team Providers Care Export Freight Clerk Name Role Phone Ashok Hurtado Primary Care Provider [phone] Allergies Active Allergy Reactions Criticality Noted Date [...] Health Medicaid [facility] Medicaid Care Teams Export Freight Clerk Relationship Specialty Start Date End Date Ashok Hurtado PA [address] [place] [address], [address] [place] [address] PCP - General Physician Portable Track Line Marker 04/09/21
== END 2024-10-15 09:23 | disposition home or self-care (01) ==
LOC: HO.ED 09:22
PROVIDERS: Emergency Provider Emergency Medicine; PCP Physician Assistant
DX: S00.462A Insect bite (nonvenomous) of left ear, initial encounter (principal); S90.562A Insect bite (nonvenomous), left ankle, initial encounter; W57.XXXA Bitten or stung by nonvenomous insect and other nonvenomous arthropods, initial encounter; Y93.9 Activity, unspecified; I12.9 Hypertensive chronic kidney disease with stage 1 through stage 4 chronic kidney disease, or unspecified chronic kidney disease; E11.22 Type 2 diabetes mellitus with diabetic chronic kidney disease; N18.9 Chronic kidney disease, unspecified; Z87.891 Personal history of nicotine dependence
CPT/HCPCS: 99281; 99282

== ENCOUNTER 2024-10-18 15:05 | Outpatient (AMB) | payer OTHER, SELFPAY ==
[2024-10-18 15:08] VITALS: BP 110/82; PULSE 68; O2SAT 99; BMI 33.3
--- NOTE | 2024-10-18 15:08 | MHC.OFFVIS ---
Vital Signs 10/18/24 15:08 Height 5 ft 5 in Weight 200 lb 6.403 oz BMI 33.3 BP 110/82 Blood Pressure Location Rt brachial Position Sitting Pulse 68 Pulse Source Pulse Oximeter Pulse Oximetry (%) 99 Oxygen Delivery Method Room Air Intake Visit Reasons: DM Intake Note: Patient present today for Type 1 Diabetes Mellitus Last Diabetic eye exam: 04/2024 Last Podiatry Visit: Doesn't have one Random Glucose: 81 mg/dl HgA1C: 7.1% Engineering Inspection Assistant Required: No Accompanied by: Self / Same As Patient Allergies aspirin (ASA) Allergy (Unknown, Verified 10/18/24 15:13) ANAPHYLAXIS benazepril Allergy (Unknown, Verified 10/18/24 15:13) hyperkalemia Medication List - Last Reconciled 10/18/24 by Aparna Dickson MD acetone (urine) test (Ketone Urine Test strips) As directed for glucose over 250, illness, nausea/vomiting tid prn benzonatate 200 mg PO TID 5 days ezetimibe (Zetia) 10 mg PO DAILY glucagon 3 mg/actuation (Baqsimi) 3 mg intranasal .prn PRN 30 days MDD 6 mg infusion set for insulin pump As directed insulin aspart U-100 (Novolog U-100 Insulin aspart) 125 units (1.25 mL) continuous subcutaneous infusion DAILY 30 days insulin glargine (Lantus Solostar U-100 Insulin) 40 units (0.4 mL) subcut DAILY 30 days [insulin pump supplies As directed] insulin syringe-needle U-100 (BD Veo Insulin Syringe Ultra-Fine) As directed lisinopril 2.5 mg PO DAILY 90 days metoprolol succinate ER 100 mg PO DAILY nifedipine ER 60 mg PO DAILY 90 days pen needle, diabetic (BD Ultra-Fine Kamala Pen Needle) As directed one daily rosuvastatin 20 mg PO DAILY sodium polystyrene sulf-sorbtl 15-20 gram/60 mL 120 mL PO .three times weekly urine glucose-ketones test (Keto-Diastix strips) As directed glucose over 250, illness, nausea,vomiting HPI Comments Details: 39 yo male with DM type 1 with CKD stage 4 coming in today for follow up History of diabetes diagnosed at the age of 13 Last seen June 2024 by Eliana Hilliard APRN A1C 10/18/24: POC 7.1% 07/07/24 6.8 % 04/07/24 6.7% 12/29/23 7.9%. is on a Tandem insulin pump with G6 the U 100 NovoLog. Tandem T slim with CGM with G6 data downloaded from October 05 to 10/19/2019 1025 Within target range: 61% High 22% Very high 16% Low 0% Very low 1% G HI 7.6% Average glucose 180 mg/dL Time CGM active 95.8% Coefficient of variation 41.5% Interpretation: Quite a bit of high carb intake. Also seems to not be pre bolusing sometimes. He does get spikes after breakfast and lunch. Insulin usage Insulin per day the 83.2 units Bolus per day 48.6 units (58%) Basal per day 34.6 units (42%) Control IQ active 97% Carbs per day 285.6 g ?Basal rate(s) (units/hour) : 12 AM? to 3 AM? 1.1 units / hr 3 AM? to 7 AM? 1.1 units / hr 7 AM? to 4 PM? 0.9 units / hr 4 PM to 12 AM? 1.2 units / hr Bolus setting Insulin Carbohydrate Ratio (s) 12 AM? to 2 PM? 1:7 2PM to 4 PM 1:6.5 4 PM to 12 AM 1:6.3 Correction Factor / Sensitivity Factor 12 AM? to 7 AM? 1:40 7 AM? to 2 PM? 1:48 2 PM to 4 PM 1:45 4 PM to 12 AM 1:33 Active Insulin Time: Control IQ 4.0 hours Target(s): Control IQ target 2 AM? to 12 AM?110 mg/dL Control IQ off target 12 AM? to 12 AM? 120 mg/dL Micro and macrovascular complications: + nephropathy, + retinopathy Has retinopathy: seen in March 2024 by singh would I in [facility] Followed by Dr. Justice. Kidney function has been stable. If it deteriorates Dr. Justice will refer patient for kidney/pancreas transplant. Has had intermittent high potassium in his treated with Kayexalate. 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 Physical exam General: sitting comfortably in no acute distress HEENT: normocephalic/atraumatic Cardiac: normal heart sounds Pulm: normal breath sounds B/L, no added breath sounds Abd: not distended, no tenderness Extremities: no edema, no signs of myxedema Neuro: AAO x3, Speech: normal, no facial droop, moving all 4 extremities Laboratory Tests 06/25/24 06/25/24 06/28/24 08:07 08:10 16:52 Creatinine Estimated GFR Glucose (Clinic) Hgb A1c (Clinic) 6.8 H AST 20 ALT 24 Triglycerides 77 Cholesterol 116 LDL Cholesterol, Calc 58 HDL Cholesterol 43 Urine Creatinine 69.34 Urine Microalbumin 319.0 Microalb/Creat Ratio 460.0 H 07/07/24 10/07/24 16:00 15:09 Creatinine 3.84 H Estimated GFR 18 Glucose (Clinic) 98 Hgb A1c (Clinic) AST ALT Triglycerides Cholesterol LDL Cholesterol, Calc HDL Cholesterol Urine Creatinine Urine Microalbumin Microalb/Creat Ratio [facility] Medical History (Updated 10/18/24 @ 15:51 by Aparna Dickson MD) Insulin pump in place Type 1 diabetes mellitus with nephropathy Proteinuria 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 Cognitive needs: No Hearing needs: No Vision needs: No Physical Exam Vital Signs: Last Vital Signs Pulse 68 10/18/24 15:08 BP 110/82 10/18/24 15:08 Pulse Ox 99 10/18/24 15:08 Oxygen Delivery Method Room Air 10/18/24 15:08 BMI result Body Mass Index 33.3 Office Procedures Glucose Monitoring Details Details: See [facility] [address] - Glucose monitoring, continuous-physician I&R Procedure code (CPT) selection complete Results AMB Hemoglobin A1c AMB Hemoglobin A1c 7.1 % Last Edit by KERA Chakraborty on 10/18/24 15:41 Assessment & Plan Assessment & Plan (1) 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 He is on tandem T slim insulin pump with Dexcom G6 with NovoLog U 100. A1c POC 10/18/2024 up at 7.1% from 6.8% in June 2024. Insulin pump and CGM data reviewed which shows that he does have some hyperglycemia after which he has low blood sugars. These are the times I notice he is not pre bolusing. Educated about importance of pre bolusing. He also has a high carb diet. He is not exercising much. We talked about getting 30 minutes of walk a day if possible. Pump settings no change today. (2) Insulin pump in place: Code(s): Z96.41 - Presence of insulin pump (external) (internal) Category: Medical Plan: Has urine ketone strips Has nasal Baqsimi Has backup Lantus: To inject 35 units in case of pump failure plus NovoLog with the bolus calculator Has pen needles Plan I spent 30 minutes in reviewing the record, seeing the patient and documenting in the medical record. Orders: Orders AMB Hemoglobin A1c Today E10.22 - Type 1 diabetes mellitus with diabetic chronic kidney disease, N18.4 - Chronic kidney disease, stage 4 (severe), Z13.9 - Encounter for screening, unspecified AMB Glucose Monitoring Today E10.22 - Type 1 diabetes mellitus with diabetic chronic kidney disease, N18.4 - Chronic kidney disease, stage 4 (severe) Medications: Refilled acetone (urine) test (Ketone Urine Test strips) As directed for glucose over 250, illness, nausea/vomiting tid prn 25 ea 1RF Patient Instructions: Rule of 15 Treatment for Hypoglycemia (Low blood sugar) If your blood glucose is low (70 and below)*, follow the steps below to treat: Eat or drink something from the list below equal to 15 grams of carbohydrate (carb). Rest for 15 minutes Re-check your blood glucose. If it is still low, (below 70), repeat step 1 above. ? If your next meal is more than an hour away, you will need to eat one carbohydrate choice as a snack to keep your blood glucose from going low again. ?If you can't figure out why you have low blood glucose, call your healthcare provider, as your medicine may need to be adjusted. ?Always carry something with you to treat an insulin reaction. Use food from the list below. ? Foods equal to One Carbohydrate Choice (15 grams of carbohydrate): 3 Glucose ?tablets or 4 Dextrose tablets 4 ounces of fruit juice 5-6 ounces (about 1/2 can) of regular soda such as Coke or Pepsi ? 7-8 gummy or regular Life Savers ? 1 Tbsp. of sugar or jelly NOTE: If your blood sugar is less than 50, double the portion above for a total of 30 gm. ?Carbohydrate. ? Follow meal plan of 45-60 g of consistent carbohydrates at 3 meals each day and 15 g of carbohydrate at 1-2 snacks each day. Coding Level of Care Code Est Pt Level 4 (73843) Diagnoses Type 1 diabetes mellitus with stage 4 chronic kidney disease E10.22; N18.4 Chronic kidney disease stage: stage 4 (severe) Insulin pump in place Z96.41 CPT Codes Details - CPT: 57564 - Glucose monitoring, continuous-physician I&R ([id number]) Time Spent (min) 30
--- OUTSIDE RECORDS SUMMARY | 2024-10-18 16:46 | XMS_ITS | Clinical Summary ---
Author Organization [facility] Address [address] [facility] [address] [place] [address] Phone Care Team Providers Care Senior Materials Analyst Name Role Phone Ashok Hurtado Primary Care Provider [phone] Allergies Active Allergy Reactions Criticality Noted Date [...] Health Medicaid [facility] Medicaid Care Teams Senior Materials Analyst Relationship Specialty Start Date End Date Ashok Hurtado PA [address] [place] [address], [address] [place] [address] PCP - General Physician Price Clerk 04/09/21
[2024-10-19 07:15] LABS: Glucose, Whole Blood 81 mg/dL (60-115)
== END 2024-10-18 15:39 | disposition home or self-care (01) ==
LOC: HO.ENCR 15:06
PROVIDERS: Visit Provider Student in an Organized Health Care Education/Training Program
DX: E10.22 Type 1 diabetes mellitus with diabetic chronic kidney disease (principal); N18.4 Chronic kidney disease, stage 4 (severe); Z96.41 Presence of insulin pump (external) (internal); Z13.9 Encounter for screening, unspecified
CPT/HCPCS: 95251; 99214

== ENCOUNTER → 2024-10-18 15:05 | Outpatient (BNVA) | payer OTHER, SELFPAY | PROVIDERS: Visit Provider Student in an Organized Health Care Education/Training Program | DX: E10.22 Type 1 diabetes mellitus with diabetic chronic kidney disease (principal); N18.4 Chronic kidney disease, stage 4 (severe); Z96.41 Presence of insulin pump (external) (internal) | CPT/HCPCS: 82947; 83036; 99212 ==

== ENCOUNTER 2024-12-30 14:20 | Outpatient (AMB) | payer OTHER, SELFPAY ==
--- NOTE | 2024-12-30 15:10 | A.OFFVIS_ITS ---
Intake Intake Visit Reasons: Pump training Materials Management Clerk Required: No Accompanied by: Self / Same As Patient Allergies aspirin (ASA) Allergy (Unknown, Verified 10/18/24 15:13) ANAPHYLAXIS benazepril Allergy (Unknown, Verified 10/18/24 15:13) hyperkalemia HPI Comprehensive Diabetes Asmnt Most Recent Diabetes Results: Creatinine, (0.5-1.4) 3.84 mg/dL H 10/07/24 BUN, (9-16) 44 mg/dL H 10/07/24 Sodium, (135-145) 140 mmol/L 10/07/24 Potassium, (3.3-5.1) 4.5 mmol/L 10/07/24 Chloride, (96-108) 110 mmol/L H 10/07/24 Carbon Dioxide, (22-29) 21 mmol/L L 10/07/24 [facility] Medical History (Updated 10/18/24 @ 15:51 by Aparna Dickson MD) Insulin pump in place Type 1 diabetes mellitus with nephropathy Proteinuria 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: Code(s): E10.22 - Type 1 diabetes mellitus with diabetic chronic kidney disease Qualifiers: Chronic kidney disease stage: stage 4 (severe) Qualified Code(s): E10.22 - Type 1 diabetes mellitus with diabetic chronic kidney disease; N18.4 - Chronic kidney disease, stage 4 (severe) Plan: Patient presents for pump training for T-Slim with Control IQ and Dexcom G6 The following topics were reviewed today: The following topics were reviewed today: -Pump therapy basic concepts: Basal/bolus, insulin to carb ratio, correction factor, insulin on board -Device settings: Bluetooth/mobile connection (if applicable), correct date and time, sound volume -CGM settings(if integrated system): CGM graft views and trend arrows, alerts and alarms, Start new sensor ??? High Alert: 300 mg/dL ??? Low Alert: 70 mg/dL Pt recieved new T-Slim, at today's visit enter both profiles from previous insulin pump Pt stated he in not interested in changing sensor at this time. He will need software update to switch to new sensor Insulin delivery settings Program insulin to carb ratio, correction factor, target blood glucose, suspend or resume insulin delivery, bolus limit and basal limit settings Troubleshooting after starting new pod or inserting new insulin set: Occlusion, adhesive tape sensitivity, redness Check BG 2 hours after site change Safety information: Importance of a backup plan, for manual injections, proper prescriptions and emergency supplies ketone strips, and rules for testing for ketones Patient's settings verified by Diabetes Education nurse no changes made to patient's insulin pump settings at today's visit ?Basal rate(s) (units/hour) : 12 AM? to 3 AM? 1.1 units / hr 3 AM? to 7 AM? 1.1 units / hr 7 AM? to 4 PM? 0.9 units / hr 4 PM to 12 AM? 1.2 units / hr Bolus setting Insulin Carbohydrate Ratio (s) 12 AM? to 2 PM? 1:7 2PM to 4 PM 1:6.5 4 PM to 12 AM 1:6.3 Correction Factor / Sensitivity Factor 12 AM? to 7 AM? 1:40 7 AM? to 2 PM? 1:48 2 PM to 4 PM 1:45 4 PM to 12 AM 1:33 Active Insulin Time: Control IQ 5 hours Target(s): Control IQ target 2 AM? to 12 AM?110 mg/dL Control IQ off target 12 AM? to 12 AM? 120 mg/dL Coding Level of Care Code Est Pt Level 1 (77962) Diagnoses Type 1 diabetes mellitus with stage 4 chronic kidney disease E10.22; N18.4 Chronic kidney disease stage: stage 4 (severe)
--- OUTSIDE RECORDS SUMMARY | 2024-12-30 17:29 | XMS_ITS | Clinical Summary ---
Author Organization [facility] Address [address] [facility] [address] [place] [address] Phone Care Team Providers Care Job Recruiter Name Role Phone Ashok Hurtado Primary Care Provider [phone] Allergies Active Allergy Reactions Criticality Noted Date [...] Health Medicaid [facility] Medicaid Care Teams Job Recruiter Relationship Specialty Start Date End Date Ashok Hurtado PA [address] [place] [address], [address] [place] [address] PCP - General Physician Cnc Router Operator 04/09/21
== END 2024-12-30 15:19 | disposition home or self-care (01) ==
LOC: HO.ENCR 14:21
PROVIDERS: Visit Provider Registered Nurse Diabetes Educator
DX: E10.22 Type 1 diabetes mellitus with diabetic chronic kidney disease (principal); N18.4 Chronic kidney disease, stage 4 (severe)

== ENCOUNTER → 2024-12-30 14:20 | Outpatient (BNVA) | payer OTHER, SELFPAY | PROVIDERS: Visit Provider Registered Nurse Diabetes Educator | DX: E10.22 Type 1 diabetes mellitus with diabetic chronic kidney disease (principal); N18.4 Chronic kidney disease, stage 4 (severe) | CPT/HCPCS: 99211 ==

== ENCOUNTER 2025-01-04 15:32 | Outpatient (AMB) | payer OTHER, SELFPAY ==
--- NOTE | 2025-01-04 15:39 | MHC.PC.OV ---
Vital Signs 01/04/25 15:40 Height 5 ft 5 in Weight 201 lb 8 oz BMI 33.5 BP 130/70 Blood Pressure Location Rt brachial Position Sitting Pulse 61 Pulse Source Pulse Oximeter Temp 96.9 F Temp Source Temporal Artery Scan Pulse Oximetry (%) 98 Oxygen Delivery Method Room Air Intake Visit Reasons: f/u DMII/ CKD Intake Note: Patient is here to follow up on DMII, CKD. Display Director Required: No Packing Supervisor: Not Required per policy Accompanied by: Self / Same As Patient Allergies aspirin (ASA) Allergy (Unknown, Verified 01/04/25 16:04) ANAPHYLAXIS benazepril Allergy (Unknown, Verified 01/04/25 16:04) hyperkalemia Medication List - Last Reconciled 01/04/25 by Ashok Hurtado PA-C acetone (urine) test (Ketone Urine Test strips) As directed for glucose over 250, illness, nausea/vomiting tid prn blood sugar diagnostic (FreeStyle Lite Strips) As directed to check BG 3-4 times per day blood-glucose meter (FreeStyle Lite Meter kit) As directed ezetimibe (Zetia) 10 mg PO DAILY glucagon 3 mg/actuation (Baqsimi) 3 mg intranasal .prn PRN 30 days MDD 6 mg infusion set for insulin pump As directed insulin aspart U-100 (Novolog U-100 Insulin aspart) 125 units (1.25 mL) continuous subcutaneous infusion DAILY 30 days insulin glargine (Lantus Solostar U-100 Insulin) 40 units (0.4 mL) subcut DAILY 30 days [insulin pump supplies As directed] insulin syringe-needle U-100 (BD Veo Insulin Syringe Ultra-Fine) As directed lancets (Ekinops Safety Lancets) As directed to measure BG 3-4 times per day lisinopril 2.5 mg PO DAILY 90 days metoprolol succinate ER 100 mg PO DAILY nifedipine ER 60 mg PO DAILY 90 days pen needle, diabetic (BD Ultra-Fine Kamala Pen Needle) As directed one daily rosuvastatin 20 mg PO DAILY sodium polystyrene sulf-sorbtl 15-20 gram/60 mL 120 mL PO .three times weekly urine glucose-ketones test (Keto-Diastix strips) As directed glucose over 250, illness, nausea,vomiting Tobacco use date assessed: 01/04/25 Dental Screening Dental Screen Date: 06/28/24 HPI f/u DMII/ CKD HPI Details Patient is a 39-year-old male here today for a follow-up visit Patient has a past medical history significant for type 1 diabetes, CKD stage 4, hypertension, hyperlipidemia. Concern--> often gets an itchy rash over his groin area in his interested in trying an antifungal cream and/or powder. Type 1 diabetes: Patient is followed by endocrinology and continues on insulin pump.? Today's A1c acceptable.? He does report blood sugars have been fairly stable. CKD stage 4:? Patient is followed by Nephrology, blood pressure today in office acceptable. GFR remains around 20. He has been referred for kidney and pancreas transplant. ., Hyperkalemia: Most recent potassium at 4.5. 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 Cognitive needs: No Hearing needs: No Vision needs: No Questionnaire Thrive Questionnaire Date Thrive assessed: 06/28/24 I am a: Patient What is your living situation today?: I have a steady place to live Within the past 12 months, did the food you bought not last and you didn't have the money to get more?: Never true Within the past 12 months, did you worry whether your food would run out before you got money to buy more?: Never true Do you have trouble paying for medicines?: No Do you have trouble getting transportation to medical appointments?: No Do you have trouble paying your heating and electricity bill?: No Do you have trouble taking care of your child, family member or friend?: No Do you have trouble with day-to-day activities such as bathing, preparing meals, shopping, managing finances, etc.?: No Are you currently unemployed and looking for a job?: No Are you interested in more education?: No Please select the resources that you would like help with: None Currently or been in a relationship where the following occur: No concerns reported THRIVE Score: 0 CAMILO-7 AMB Questionnaire CAMILO-7 Date CAMILO - 7 assessed: 06/28/24 Source: Developed by Drs. Nikolai Martinez, Alicia Aaron, Shane Potter and colleagues, with an educational han from [employer]. Review of Systems Const Denies headache(s) Eyes Denies loss of vision ENT Denies vertigo, Denies dizziness, Denies headache(s) and Denies sore throat Card Denies chest pain, Denies leg edema and Denies lightheadedness Resp Denies cough, Denies hemoptysis and Denies wheezing GI Denies abdominal pain, Denies melena, Denies constipation, Denies diarrhea and Denies vomiting Denies dysuria, Denies urinary frequency and Denies urinary urgency Musc Denies arthralgias, Denies joint swelling, Denies numbness and Denies tingling Neuro Denies Abnormal speech present, Denies behavioral changes, Denies vertigo, Denies dizziness, Denies headache(s), Denies loss of vision, Denies memory loss, Denies numbness and Denies tingling Psych Denies anxiety, Denies behavioral changes, Denies depression, Denies memory loss and Denies panic attacks Dwaine/Lymph Denies easy bleeding and Denies easy bruising Aller/Immun Denies wheezing Physical exam (Primary Care) Vital Signs: Last Vital Signs Temp 96.9 F 01/04/25 15:40 Pulse 61 01/04/25 15:40 BP 130/70 01/04/25 15:40 Pulse Ox 98 01/04/25 15:40 Oxygen Delivery Method Room Air 01/04/25 15:40 BMI result Body Mass Index 33.5 BMI Assessment/Plan discussion: High BMI High, discussed plan: lifestyle, weight reduction, dietary and physical activity Tobacco/Smoking Status: Tobacco use Status Tobacco use date assessed 01/04/25 01/04/25 15:40 Patient Tobacco Use Status Former Tobacco user 01/04/25 15:40 e-Cigarette/Vaping Use Never Used 01/04/25 15:40 Thrive Assessment: Date of Thrive Assessment Date Thrive assessed 06/28/24 01/04/25 15:40 Currently or been in a relationship where the following occur: No concerns reported Const General: healthy appearing, no acute distress, alert and awake Nutritional Appearance: well nourished Orientation/consciousness: oriented to person, oriented to place and oriented to time HENMT Ears: TM's normal bilaterally General nose exam: Normal nasal mucous membranes and turbinates present Eyes Conjunctivae: conjunctivae normal Sclerae: sclerae normal Pupils: Equal, round and reactive pupils present Neck Neck: Yes no lymphadenopathy and Yes no JVD Thyroid: Thyroid normal Carotids: no bruits Resp Effort & Inspection: normal respiratory effort and not tachypneic Auscultation: no crackles, no rales, no rhonchi and no wheezes Cardio Rate: regular rate Rhythm: regular rhythm Heart sounds: no murmurs and normal S1 and S2 GI Palpation (GI): Soft to palpation, nontender, no hepatomegaly and no splenomegaly Auscultation: normal bowel sounds Skin General skin exam: no rashes or lesions noted and dry skin Neuro General: oriented to person, oriented to place and oriented to time Cranial nerves: Yes Equal, round and reactive pupils present Speech: No Abnormal speech present Gait exam (Neuro): Normal gait present Motor exam (neuro): no tremor noted Extrem Right upper extremity: full ROM Left upper extremity: full ROM Right lower extremity: full ROM; no edema Left lower extremity: full ROM; no edema Psych Mental Status: mental status grossly normal Speech and movement: Normal speech and movement present Affect: normal affect Attitude: cooperative Thought process: Normal thought process present Office Procedures Flu Questionnaire Does the patient have a severe egg allergy?: No Does the patient have severe life threatening allergies?: No Does the patient have a fever or illness today?: No Has the patient ever had Guillain-[place] Syndrome?: No Has the patient ever had any past reaction to a flu shot?: No Results AMB Hemoglobin A1c AMB Hemoglobin A1c 6.7 % Last Edit by KERA Burnham on 01/04/25 16:03 Immunizations Fluarix [id number] (PF) 45 mcg (15 mcg x 3)/0.5 mL IM syringe Performing Provider: Ashok Hurtado PA-C [facility] Administered by: Itzel Driver LPN on 01/04/25 16:28 Dose Route Admin Location Dispensed Lot Number Expiration Date NDC Transportation Technician 0.5 mL IM Left Deltoid 0.5 mL [id number] 08/23/25 31120-781-53 Sling VIS Given Date VIS Provided VIS Publication Date 01/04/25 Single Vaccine 24 Eligibility Eligibility Date Funding Source Not [facility] Eligible 01/04/25 Private Results Reviewed Results Reviewed: Laboratory Last Values Hgb A1c (Clinic) 6.7 % (4.0-6.0) H 01/04/25 15:38 Coding Level of Care Code Est Pt Level 4 (79129) Diagnoses Type 1 diabetes mellitus with nephropathy E10.21 Hyperlipidemia LDL goal <100 E78.5 Chronic kidney disease, stage 4 (severe) N18.4 Essential hypertension I10 Hyperkalemia E87.5 Class 1 obesity E66.811 Tinea unguium B35.1 Assessment & Plan Assessment & Plan (1) Type 1 diabetes mellitus with nephropathy: Code(s): E10.21 - Type 1 diabetes mellitus with diabetic nephropathy Category: Medical Plan: Patient's type 1 diabetes well controlled . He continues on an insulin pump and does see an humid system operator regularly. Does see an data entry and gets eye exams regularly as well. Goal A1c is to remain below 7.0 (2) Hyperlipidemia LDL goal <100: Code(s): E78.5 - Hyperlipidemia, unspecified Category: Medical Plan: Patient's most recent lipid panel showing excellent control of his total cholesterol and LDL. Will continue his current dose of atorvastatin and Zetia. Goal LDL to remain below 100 (3) Chronic kidney disease, stage 4 (severe): Code(s): N18.4 - Chronic kidney disease, stage 4 (severe) Category: Medical Plan: Patient followed by Nephrology in [place]. Does have chronic hyperkalemia to which he uses polystyrene solution 3 times a week. Most recent potassium at 4.5 Will continue to avoid any nephrotoxins (4) Essential hypertension: Code(s): I10 - Essential (primary) hypertension Category: Medical Plan: Patient's blood pressure acceptable today in office. Goal blood pressures to remain below 140/90 (5) Hyperkalemia: Code(s): E87.5 - Hyperkalemia Category: Medical Plan: As above (6) Class 1 obesity: Code(s): E66.811 - Obesity, class 1 Category: Medical Plan: Patient does understand his BMI is over 30 will work on being more physically active and adapting to better eating habits to reduce his weight (7) Tinea unguium: Code(s): B35.1 - Tinea unguium Category: Medical Plan: Will supply patient with a antifungal topical treatment Orders: Orders AMB Hemoglobin A1c 01/04/25 E10.21 - Type 1 diabetes mellitus with diabetic nephropathy, E10.22 - Type 1 diabetes mellitus with diabetic chronic kidney disease, N18.4 - Chronic kidney disease, stage 4 (severe) Influenza [id number] Immunization 01/04/25 Z23 - Encounter for immunization Medications: New clotrimazole 1% 1 appl topical BID 45 grams 1RF 4 weeks B35.1 - Tinea unguium nystatin 1 appl topical DAILY 60 grams 3RF 4 weeks B35.1 - Tinea unguium
[2025-01-04 15:40] VITALS: BP 130/70; PULSE 61; TEMP 36.1; O2SAT 98; BMI 33.5
== END 2025-01-04 16:29 | disposition home or self-care (01) ==
LOC: HO.HMCH 15:33
PROVIDERS: PCP Physician Assistant; Visit Provider Physician Assistant
DX: E10.22 Type 1 diabetes mellitus with diabetic chronic kidney disease (principal); N18.4 Chronic kidney disease, stage 4 (severe); E10.21 Type 1 diabetes mellitus with diabetic nephropathy; Z23 Encounter for immunization

== ENCOUNTER → 2025-01-04 15:32 | Outpatient (BNVA) | payer OTHER, SELFPAY | PROVIDERS: Visit Provider Physician Assistant | DX: E10.22 Type 1 diabetes mellitus with diabetic chronic kidney disease (principal); E10.21 Type 1 diabetes mellitus with diabetic nephropathy; I12.9 Hypertensive chronic kidney disease with stage 1 through stage 4 chronic kidney disease, or unspecified chronic kidney disease; N18.4 Chronic kidney disease, stage 4 (severe); E78.5 Hyperlipidemia, unspecified; E87.5 Hyperkalemia; E66.811 Obesity, class 1; B35.1 Tinea unguium; Z23 Encounter for immunization; Z68.33 Body mass index [BMI] 33.0-33.9, adult | CPT/HCPCS: 83036; 90471; 90656; 99212 ==

== ENCOUNTER 2025-01-14 15:13 | Outpatient (AMB) | payer OTHER, SELFPAY ==
--- NOTE | 2025-01-14 15:14 | MHC.OFFVIS ---
Vital Signs 01/14/25 15:16 Height 5 ft 5 in Weight 205 lb 0.478 oz BMI 34.1 BP 138/80 Blood Pressure Location Rt brachial Position Sitting Pulse 96 Pulse Source Pulse Oximeter Pulse Oximetry (%) 98 Oxygen Delivery Method Room Air Intake Visit Reasons: [id number] a pump Intake Note: Patient presents today for a follow-up on Type 1 Diabetes Mellitus Insulin Pump: Last Diabetic Eye exam: 04/14/2024 at [facility] Last Podiatry Exam: Does not see a Supervisor [employer] Most recent HbA1c: 6.7%, 01/04/2025 Random Glucose- 120 mg/dL, Today Drop Wire Aliner Required: No Accompanied by: Self / Same As Patient Allergies aspirin (ASA) Allergy (Unknown, Verified 01/14/25 15:16) ANAPHYLAXIS benazepril Allergy (Unknown, Verified 01/14/25 15:16) hyperkalemia HPI Comments Details: 39 yo male with DM type 1 with CKD stage 4 coming in today for follow up Last seen by Dr. Dickson on 10/18/24. This is my 1st time seeing this patient. History of diabetes diagnosed at the age of 13 Last seen June 2024 by Eliana Hilliard APRN A1C 10/18/24: POC 7.1% 07/07/24 6.8 % 04/07/24 6.7% 12/29/23 7.9%. is on a Tandem insulin pump with G6 the U 100 NovoLog. CGM/PUMP data Interpretation: Postprandial hyperglycemia, more accentuated at night, we will recurrent episode of hypoglycemia as patient uses insulin after meals. Insulin usage Insulin per day72.2 units Bolus per day 39.2 units (54%) Basal per day 33.1 units (46%) Control IQ active 98% Carbs per day 249.6 g ?Basal rate(s) (units/hour) : 12 AM? to 3 AM? 1.1 units / hr 3 AM? to 7 AM? 1.1 units / hr 7 AM? to 4 PM? 0.9 units / hr 4 PM to 12 AM? 1.2 units / hr Bolus setting Insulin Carbohydrate Ratio (s) 12 AM? to 2 PM? 1:7 2PM to 4 PM 1:6.5 4 PM to 12 AM 1:6.3 Correction Factor / Sensitivity Factor 12 AM? to 7 AM? 1:40 7 AM? to 2 PM? 1:48 2 PM to 4 PM 1:45 4 PM to 12 AM 1:33 Active Insulin Time: Control IQ 4.0 hours Target(s): Control IQ target 2 AM? to 12 AM?110 mg/dL Control IQ off target 12 AM? to 12 AM? 120 mg/dL Micro and macrovascular complications: + nephropathy, + retinopathy Has retinopathy: seen in March 2024 by singh akbar I in [facility] Followed by Dr. Justice. Kidney function has been stable. If it deteriorates Dr. Justice will refer patient for kidney/pancreas transplant. Has had intermittent high potassium in his treated with Kayexalate. 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 He uses it in the middle or after finishing eating No much physical activity No diet changes, he has tried to make some changes in his doet. Drink 0 timi soda He has microalbuminuria but is already on Lisinorpril and seeing nephrology [id number]. Physical exam: General: Well appearing. Neck/Thyroid: Thyroid not palpable, no nodules. CV: RRR, no murmur. No edema. Resp: Lungs clear to auscultation bilaterally Abdomen: Soft, nontender. nondistended Extremities/Neuro: No weakness or tremor of outstretched hands Diabetic Foot Exam: sensation to monofilament exam Laboratory Tests 06/25/24 06/25/24 06/28/24 08:07 08:10 16:52 Creatinine Estimated GFR Glucose (Clinic) Hgb A1c (Clinic) 6.8 H AST 20 ALT 24 Triglycerides 77 Cholesterol 116 LDL Cholesterol, Calc 58 HDL Cholesterol 43 Urine Creatinine 69.34 Urine Microalbumin 319.0 Microalb/Creat Ratio 460.0 H 07/07/24 10/07/24 16:00 15:09 Creatinine 3.84 H Estimated GFR 18 Glucose (Clinic) 98 Hgb A1c (Clinic) AST ALT Triglycerides Cholesterol LDL Cholesterol, Calc HDL Cholesterol Urine Creatinine Urine Microalbumin Microalb/Creat Ratio Laboratory Tests 10/07/24 01/04/25 01/14/25 15:09 15:38 15:22 Sodium 140 Potassium 4.5 BUN 44 H Creatinine 3.84 H Estimated GFR 18 Glucose (Clinic) 120 H Hgb A1c (Clinic) 6.7 H [facility] Medical History Insulin pump in place Type 1 diabetes mellitus with nephropathy Proteinuria 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 Cognitive needs: No Hearing needs: No Vision needs: No Physical Exam Vital Signs: Oxygen Delivery Method Room Air 01/14/25 15:16 BMI result Body Mass Index 34.1 Office Procedures Glucose Monitoring Details Details: See [facility] [id number] - Glucose Monitoring, continuous Procedure code (CPT) selection complete Assessment & Plan Assessment & Plan (1) 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 He is on tandem T slim insulin pump with Dexcom G6 with NovoLog U 100. A1c is not reliable in the setting of CKD stage 4. Per his own report, he has being placed on the transplant list. We discussed complications of uncontrolled DM besides his kidney. He was adviced that entering carbs/giving himself insulin prior to meals would allow for a more physiologic glucose metabolism. We discussed the importance of increasing activity, ideally to 170 mins/wk. Pump settings no change today. We will consider changes once he is able to enter carbs prior to meals Discussed hypoglycemia management Discussed Ketone testing utility and protocol Follow up in 3 months (2) Insulin pump in place: Code(s): Z96.41 - Presence of insulin pump (external) (internal) Category: Medical Plan: Has urine ketone strips Has nasal Baqsimi Has backup Lantus: To inject 35 units in case of pump failure plus NovoLog with the bolus calculator Has pen needles Plan I spent 30 minutes in reviewing the record, seeing the patient and documenting in the medical record. Orders: Orders AMB Glucose Monitoring Today E10.22 - Type 1 diabetes mellitus with diabetic chronic kidney disease, N18.4 - Chronic kidney disease, stage 4 (severe) Coding Level of Care Code Est Pt Level 4 (89685) Diagnoses Type 1 diabetes mellitus with stage 4 chronic kidney disease E10.22; N18.4 Chronic kidney disease stage: stage 4 (severe) Insulin pump in place Z96.41 CPT Codes Details - CPT: 46090 - Glucose Monitoring, continuous ([id number])
[2025-01-14 15:16] VITALS: BP 138/80; PULSE 96; O2SAT 98; BMI 34.1
--- OUTSIDE RECORDS SUMMARY | 2025-01-14 15:17 | XMS_ITS | Clinical Summary ---
Author Organization [facility] Address [address] [facility] [address] [place] [address] Phone Care Team Providers Care Vehicle Window Tinter Name Role Phone Ashok Hurtado Primary Care Provider [phone] Allergies Active Allergy Reactions Criticality Noted Date [...] Health Medicaid [facility] Medicaid Care Teams Vehicle Window Tinter Relationship Specialty Start Date End Date Ashok Hurtado PA [address] [place] [address], [address] [place] [address] PCP - General Physician Scoop Driver 04/09/21
[2025-01-14 15:26] LABS: Glucose, Whole Blood 120 mg/dL (60-115)
== END 2025-01-14 15:53 | disposition home or self-care (01) ==
LOC: HO.ENCR 15:14
PROVIDERS: Visit Provider Student in an Organized Health Care Education/Training Program
DX: E10.22 Type 1 diabetes mellitus with diabetic chronic kidney disease (principal); N18.4 Chronic kidney disease, stage 4 (severe); Z96.41 Presence of insulin pump (external) (internal)
CPT/HCPCS: 99214

== ENCOUNTER → 2025-01-14 15:13 | Outpatient (BNVA) | payer OTHER, SELFPAY | PROVIDERS: Visit Provider Student in an Organized Health Care Education/Training Program | DX: E10.22 Type 1 diabetes mellitus with diabetic chronic kidney disease (principal); N18.4 Chronic kidney disease, stage 4 (severe); Z96.41 Presence of insulin pump (external) (internal) | CPT/HCPCS: 82947; 95250; 99212 ==

== ENCOUNTER 2025-01-24 16:13 | Outpatient (REF) | payer OTHER, SELFPAY ==
--- OUTSIDE RECORDS SUMMARY | 2025-01-24 18:42 | XMS_ITS | Clinical Summary ---
Author Organization [facility] Address [address] [facility] [address] [place] [address] Phone Care Team Providers Care Fan Mail Clerk Name Role Phone Ashok Hurtado Primary Care Provider Allergies Active Allergy Reactions Criticality Noted Date [...] Health Medicaid [facility] Medicaid Care Teams Fan Mail Clerk Relationship Specialty Start Date End Date Ashok Hurtado PA [address] [place] [address], [address] [place] [address] PCP - General Physician Pneumatic Tool Repairer 04/09/21
[2025-01-24 20:01] LABS: Anion Gap 13 (12-20); Blood Urea Nitrogen 53 mg/dL (9-16); Carbon Dioxide 21 mmol/L (22-29); Chloride 109 mmol/L (96-108); Estimated Glomerular Filt Rate 16; Potassium 4.2 mmol/L (3.3-5.1); Sodium 139 mmol/L (135-145)
== END 2025-01-24 16:14 | disposition home or self-care (01) ==
LOC: HO.LAB 16:13
PROVIDERS: PCP Physician Assistant; Visit Provider Internal Medicine Nephrology
DX: E10.22 Type 1 diabetes mellitus with diabetic chronic kidney disease (principal); I12.9 Hypertensive chronic kidney disease with stage 1 through stage 4 chronic kidney disease, or unspecified chronic kidney disease; N18.4 Chronic kidney disease, stage 4 (severe); E10.21 Type 1 diabetes mellitus with diabetic nephropathy
CPT/HCPCS: 36415; 80051; 82565; 84520

== ENCOUNTER 2025-01-26 15:33 | Outpatient (AMB) | payer OTHER, SELFPAY ==
--- NOTE | 2025-01-26 15:38 | HO.NEPHOV_ITS ---
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 His blood sugar controls are fair. He has type 1 diabetes but denies retinopathy or neuropathy. He does not have any edema. His blood pressure has been at goal. He denies uremic symptoms. He does not have any chest pain, shortness of breath, proximal nocturnal dyspnea, orthopnea, nausea, vomiting, diarrhea. He claims to be compliant with his medications. 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 Cognitive needs: No Hearing needs: No Vision needs: No Review of Systems Const All systems reviewed & are unremarkable except as noted in HPI and below Physical Exam Vital Signs: Last Vital Signs Pulse 73 01/26/25 15:44 BP 120/70 01/26/25 15:44 Pulse Ox 97 01/26/25 15:44 Oxygen Delivery Method Room Air 01/26/25 15:44 BMI result Body Mass Index 32.5 Const General: comfortable and no acute distress Orientation/consciousness: patient oriented x3 HEENT Head: Yes normocephalic Mouth: Normal oral and palatal mucosa present Eyes EOM: EOMs intact bilaterally Neck Neck: Yes supple Resp Auscultation: clear to auscultation bilaterally Cardio Jugular venous distension: no JVD Rate: regular rate GI Palpation (GI): Soft to palpation Auscultation: normal bowel sounds General: Yes no CVA tenderness Back/Spine/Pelvis Back: no CVA tenderness Skin General skin exam: no rashes or lesions noted Neuro General: patient oriented x3 and moves all extremities Extrem General: Yes no pedal edema Results Reviewed Nephrology Results: Sodium, (135-145) 139 mmol/L 01/24/25 Potassium, (3.3-5.1) 4.2 mmol/L 01/24/25 Chloride, (96-108) 109 mmol/L H 01/24/25 Carbon Dioxide, (22-29) 21 mmol/L L 01/24/25 BUN, (9-16) 53 mg/dL H 01/24/25 Creatinine, (0.5-1.4) 4.25 mg/dL H* 01/24/25 Assessment & Plan Assessment & Plan (1) Essential hypertension: Code(s): I10 - Essential (primary) hypertension Category: Medical (2) Type 1 diabetes mellitus with chronic kidney disease: Code(s): E10.22 - Type 1 diabetes mellitus with diabetic chronic kidney disease Category: Medical Qualifiers: Chronic kidney disease stage: stage 4 (severe) Qualified Code(s): E10.22 - Type 1 diabetes mellitus with diabetic chronic kidney disease; N18.4 - Chronic kidney disease, stage 4 (severe) (3) Chronic kidney disease, stage 4 (severe): Code(s): N18.4 - Chronic kidney disease, stage 4 (severe) Category: Medical Plan Jurgen has advanced chronic kidney disease. His serum creatinine is marginally worse . His blood pressure is at goal. He is tolerating low-dose of PEPE-inhibitor which I may back off if his serum creatinine rises. He has no uremic symptoms. I plan to refer him for a kidney and pancreas transplant,when indicated He should avoid nonsteroidal anti-inflammatories and maintain good hydration. I did not make any medication changes today but rather discussed about his CKD and its management strategies, including renal transplant. He has a sister who is willing to consider donating a kidney to him. Answered all questions Orders: Orders Electrolytes 3 Weeks E10.22 - Type 1 diabetes mellitus with diabetic chronic kidney disease, N18.4 - Chronic kidney disease, stage 4 (severe) Blood Urea Nitrogen 3 Weeks E10.22 - Type 1 diabetes mellitus with diabetic chronic kidney disease, N18.4 - Chronic kidney disease, stage 4 (severe) Creatinine 3 Weeks E10.22 - Type 1 diabetes mellitus with diabetic chronic kidney disease, N18.4 - Chronic kidney disease, stage 4 (severe) Coding Level of Care Code Est Pt Level 4 (37957) Diagnoses Essential hypertension I10 Type 1 diabetes mellitus with stage 4 chronic kidney disease E10.22; N18.4 Chronic kidney disease stage: stage 4 (severe) Chronic kidney disease, stage 4 (severe) N18.4
[2025-01-26 15:44] VITALS: BP 120/70; PULSE 73; O2SAT 97; BMI 32.5
--- OUTSIDE RECORDS SUMMARY | 2025-01-26 18:31 | XMS_ITS | Clinical Summary ---
Author Organization [facility] Address [address] [facility] [address] [place] [address] Phone Care Team Providers Care Oiler Bander Name Role Phone Ashok Hurtado Primary Care Provider [phone] Allergies Active Allergy Reactions Criticality Noted Date [...] Health Medicaid [facility] Medicaid Care Teams Oiler Bander Relationship Specialty Start Date End Date Ashok Hurtado PA [address] [place] [address], [address] [place] [address] PCP - General Physician Cooker Mechanic 04/09/21
== END 2025-01-26 16:02 | disposition home or self-care (01) ==
LOC: HO.HKA 15:35
PROVIDERS: Visit Provider Internal Medicine Nephrology
DX: I12.9 Hypertensive chronic kidney disease with stage 1 through stage 4 chronic kidney disease, or unspecified chronic kidney disease (principal); E10.22 Type 1 diabetes mellitus with diabetic chronic kidney disease; N18.4 Chronic kidney disease, stage 4 (severe)
CPT/HCPCS: 99214

== ENCOUNTER → 2025-01-26 15:33 | Outpatient (BNVA) | payer OTHER, SELFPAY | PROVIDERS: Visit Provider Internal Medicine Nephrology | DX: I12.9 Hypertensive chronic kidney disease with stage 1 through stage 4 chronic kidney disease, or unspecified chronic kidney disease (principal); E10.22 Type 1 diabetes mellitus with diabetic chronic kidney disease; N18.4 Chronic kidney disease, stage 4 (severe) | CPT/HCPCS: 99212 ==

== ENCOUNTER 2025-02-21 16:14 | Outpatient (REF) | payer OTHER, SELFPAY ==
[2025-02-21 17:50] LABS: Anion Gap 12 (12-20); Blood Urea Nitrogen 52 mg/dL (9-16); Carbon Dioxide 22 mmol/L (22-29); Chloride 108 mmol/L (96-108); Estimated Glomerular Filt Rate 19; Potassium 4.4 mmol/L (3.3-5.1); Sodium 138 mmol/L (135-145)
--- OUTSIDE RECORDS SUMMARY | 2025-02-21 17:56 | XMS_ITS | Clinical Summary ---
Author Organization [facility] Address [address] [facility] [address] [place] [address] Phone Care Team Providers Care Photo Stylist Name Role Phone Ashok Hurtado Primary Care Provider [phone] Allergies Active Allergy Reactions Criticality Noted Date [...] Health Medicaid [facility] Medicaid Care Teams Photo Stylist Relationship Specialty Start Date End Date Ashok Hurtado PA [address] [place] [address], [address] [place] [address] PCP - General Physician Generator Operator Straight Bevel Gear 04/09/21
== END 2025-02-21 16:15 ==
LOC: HO.LAB 16:14
PROVIDERS: PCP Physician Assistant; Visit Provider Internal Medicine Nephrology
DX: E10.22 Type 1 diabetes mellitus with diabetic chronic kidney disease (principal); N18.4 Chronic kidney disease, stage 4 (severe)
CPT/HCPCS: 36415; 80051; 82565; 84520